=== PATIENT | female | born 1990 | race Caucasian/White ===

== ENCOUNTER 2016-04-05 17:42 | Emergency (ER) | payer OTHER ==
[2016-04-05 17:58] VITALS: BP 125/70
[2016-04-05] MEDS ORDERED: Oseltamivir CAP* 75 MG PO ONE (18:58)
--- NOTE | 2016-04-05 19:02 | UC ---
FLU HPI - HPI Summary HPI Summary: MOTHER DIAGNOSED WITH POSITIVE INFLUENZA SWAB. YESTERDAY DEVELOPED CONGESTION COUGH LOW GRADE FEVER MUSCLE ACHES SORE THROAT AND FATIGUE. NO RASH. NO ABDOMINAL PAIN. COUGH AND CONGESTION AND ACHINESS ARE WORST SYMPTOMS. - History of Current Complaint Chief Complaint: UCRespiratory Stated Complaint: COUGH, AND CHEST CONGESTION Time Seen by Provider: 04/05/16 18:00 Hx Obtained From: Patient Hx Last Menstrual Period: 03/29/15 Onset/Duration: Sudden Onset, Lasting Hours, Still Present Severity Currently: Moderate Severity Initially: Moderate Associated Signs & Symptoms: Positive: Fever, Myalgia, Cough, Sore Throat, Nasal Congestion. Negative: Headache, Vomiting, Diarrhea Related Hx: Possible Flu/Infectious Exposure - Risk Factors Influenza Risk Factors: Chronic Medical or Immunosuppresive Condition - Allergy/Home Medications Allergies/Adverse Reactions: Allergies Allergy/AdvReac Type Severity Reaction Status Date / Time Hydrocodone [From Vicodin] Allergy Severe Itching Verified 04/05/16 17:59 Ibuprofen Allergy Severe Blisters Verified 04/05/16 17:59 Penicillins Allergy Severe Difficulty Verified 04/05/16 17:59 Breathing Home Medications: Home Medications traZODone TAB* [Desyrel TAB*] 50 mg PO BEDTIME 04/05/16 [History Confirmed 04/05] PMH/Surg Hx/FS Hx/Imm Hx Previously Healthy: Yes Endocrine History Of: Denies: Diabetes, Thyroid Disease, Hyperthyroidism, Hypothyroidism, Dyslipidemia Cardiovascular History Of: Denies: Cardiac Disorders, Hypertension, Pacemaker/ICD, Myocardial Infarction , Congestive Heart Failure, Atrial Fibrillation, Deep Vein Thrombosis, Bleeding Disorders Respiratory History Of: Reports: Asthma - Only used inhalers when younger and when sick. Denies: COPD, Bronchitis, Pneumonia, Pulmonary Embolism GI/ History Of: Reports: Gastroesophageal Reflux, Kidney Stones, Renal Disease - Her last kidney/bladder infection was about a year ago. Denies: Ulcer, Gastrointestinal Bleed, Gall Bladder Disease, Diverticulitis, Urosepsis Neurological History Of: Reports: Migraine Denies: TIA, CVA, Dementia, Seizures Psychological History Of: Reports: Bipolar Disorder - She takes depakote for this. Denies: Anxiety, Depression, Schizophrenia, Post Traumatic Stress Disorder Cancer History Of: Denies: Lung Cancer, Colorectal Cancer, Breast Cancer, Prostate Cancer, Cervical Cancer Other History Of: Negative For: HIV, Hepatitis B, Hepatitis C, Anticoagulant Therapy - Surgical History Surgical History: Yes Surgery Procedure, Year, and Place: Tonsillectomy adenoidectomy. C section X4, Tubal Ligation - Family History Known Family History: Positive: Cardiac Disease, Hypertension, Diabetes, Other - migraines mom had brain CA - Social History Occupation: Student Lives: With Family Alcohol Use: None Substance Use Type: None Substance Use Comment - Amount & Last Used: prenatals state illicit drug use history Smoking Status (MU): Current Every Day Smoker Type: Cigarettes Amount Used/How Often: 1/4 ppd Length of Time of Smoking/Using Tobacco: 17 years Have You Smoked in the Last Year: Yes Household Exposure Type: Cigarettes Cessation Counseling: Counseled 3+Min - 10 Min - Immunization History Most Recent Influenza Vaccination: declined for this year Most Recent Tetanus Shot: UTD Most Recent Pneumonia Vaccination: none Review of Systems Constitutional: Fever, Chills, Fatigue Skin: Negative Eyes: Negative ENT: Sore Throat, Nasal Discharge Respiratory: Cough Cardiovascular: Negative Gastrointestinal: Negative Genitourinary: Negative Motor: Negative Neurovascular: Negative Musculoskeletal: Negative Neurological: Negative Psychological: Negative All Other Systems Reviewed And Are Negative: Yes Physical Exam Triage Information Reviewed: Yes Appearance: Well-Appearing, No Pain Distress, Well-Nourished Vital Signs: Initial Vital Signs Temp 99.9 F 04/05/16 17:53 Pulse 112 04/05/16 17:53 Resp 20 04/05/16 17:53 BP 125/70 04/05/16 17:53 Pulse Ox 97 04/05/16 17:53 Vital Signs Reviewed: Yes Eye Exam: Normal Eyes: Positive: Conjunctiva Clear ENT: Positive: Pharynx normal, Nasal congestion, TMs normal Dental Exam: Normal Neck exam: Normal Neck: Positive: Supple, Nontender, No Lymphadenopathy Respiratory Exam: Normal Respiratory: Positive: Chest non-tender, Lungs clear, Normal breath sounds Cardiovascular Exam: Normal Cardiovascular: Positive: RRR, No Murmur Abdominal Exam: Normal Abdomen Description: Positive: Nontender, No Organomegaly Musculoskeletal Exam: Normal Neurological Exam: Normal Psychological Exam: Normal Skin Exam: Normal Flu Course/Dx - Differential Dx/Diagnosis Differential Diagnosis/HQI/PQRI: Influenza, Upper Respiratory Infection Provider Diagnoses: INFLUENZA Discharge - Discharge Plan Condition: Stable Disposition: HOME Prescriptions: Oseltamivir CAP* [Tamiflu CAP*] 75 mg PO BID #10 cap Patient Education Materials: Influenza (ED) Forms: *School Release Referrals: Rufina Dunlap MD [Primary Care Provider] -
== END 2016-04-05 19:15 | disposition home or self-care (01) ==
LOC: UCEAST 17:42
DX: J11.1 Influenza due to unidentified influenza virus with other respiratory manifestations (principal); F31.9 Bipolar disorder, unspecified; F17.210 Nicotine dependence, cigarettes, uncomplicated; Z87.898 Personal history of other specified conditions; Z88.0 Allergy status to penicillin; Z88.5 Allergy status to narcotic agent; Z88.6 Allergy status to analgesic agent
CPT/HCPCS: 87502; 99212; A9270-GY; G0463

== ENCOUNTER 2016-04-13 11:18 | Emergency (ER) | payer OTHER ==
[2016-04-13 11:34] VITALS: BP 99/65
[2016-04-13] MEDS ORDERED: Ondansetron ODT TAB* 4 MG PO ONE (12:38)
[2016-04-13] MEDS ORDERED: Loperamide CAP* 2 MG PO ONE (12:39)
--- NOTE | 2016-04-13 14:02 | ED ---
Qi Mckinnye Michael, scribed for Salas Dumont MD on 04/13/16 at 1241 . GI/ HPI - HPI Summary HPI Summary: 26 y/o female comes to the ED presenting with n/v/d that started one day ago. The pt reports to not keeping any food or drinking down since last night except for a few ice chips she had in the ED. She also c/o weakness, chills, right ear pain, nasal congestion for 2 days, sore throat, productive cough with green sputum, and diffuse abd pain. She denies a significant PMHx and is a smoker. - History of Current Complaint Chief Complaint: EDGeneral Time Seen by Provider: 04/13/16 12:15 Stated Complaint: SORE THROAT/VOMITING Hx Obtained From: Patient, Medical Records Onset/Duration: Started Days Ago, Still Present Timing: Intermittent Severity: Moderate Current Severity: Moderate Pain Intensity: 10 Location of Pain: Diffuse Associated Signs and Symptoms: Positive: Weakness, Nausea, Vomiting, Diarrhea, Chills, Abdominal Pain, Cough, Other: - nasal congestion. sore throat. right ear pain. - Allergy/Home Medications Allergies/Adverse Reactions: Allergies Allergy/AdvReac Type Severity Reaction Status Date / Time Hydrocodone [From Vicodin] Allergy Severe Itching Verified 04/05/16 17:59 Ibuprofen Allergy Severe Blisters Verified 04/05/16 17:59 Penicillins Allergy Severe Difficulty Verified 04/05/16 17:59 Breathing PMH/Surg Hx/FS Hx/Imm Hx Endocrine/Hematology History: Denies: Hx Anticoagulant Therapy, Hx Diabetes, Hx Thyroid Disease Cardiovascular History: Denies: Hx Congestive Heart Failure, Hx Deep Vein Thrombosis, Hx Hypertension , Hx Myocardial Infarction, Hx Pacemaker/ICD, Hx Peripheral Vascular Disease Respiratory History: Reports: Hx Asthma - Only used inhalers when younger and when sick. Denies: Hx Chronic Obstructive Pulmonary Disease (COPD), Hx Lung Cancer, Hx Pneumonia, Hx Pulmonary Embolism GI History: Reports: Other GI Disorders - hx bladder infection Denies: Hx Gall Bladder Disease, Hx Gastrointestinal Bleed, Hx Ulcer, Hx Urosepsis History: Reports: Hx Kidney Infection, Hx Kidney Stones, Hx Renal Disease - Her last kidney/bladder infection was about a year ago., Other Problems/ Disorders - UNABLE TO VOID TODAY Musculoskeletal History: Denies: Hx Arthritis, Hx Rheumatoid Arthritis, Hx Osteoporosis Sensory History: Denies: Hx Cataracts, Hx Contacts or Glasses, Hx Glaucoma, Hx Hearing Aid Opthamlomology History: Denies: Hx Cataracts, Hx Contacts or Glasses, Hx Glaucoma Neurological History: Reports: Hx Migraine Denies: Hx Dementia, Hx Headaches, Hx Seizures, Hx Transient Ischemic Attacks (TIA) Psychiatric History: Reports: Hx Bipolar Disorder - She takes depakote for this. , Other Psychiatric Issues/Disorders - bipolar Denies: Hx Anxiety, Hx Depression, Hx Panic Disorder, Hx Schizophrenia - Surgical History Surgery Procedure, Year, and Place: Tonsillectomy adenoidectomy. C section X4, Tubal Ligation - Immunization History Date of Tetanus Vaccine: Unknown Date of Influenza Vaccine: None Infectious Disease History: Yes Infectious Disease History: Reports: Hx of Known/Suspected MRSA - ? hx of leg wound Denies: Hx Clostridium Difficile, Hx Hepatitis, Hx Human Immunodeficiency Virus (HIV), Hx Shingles, Hx Tuberculosis, Hx Known/Suspected VRE, Hx Known/ Suspected VRSA, History Other Infectious Disease, Traveled Outside the in Last 30 Days - Family History Known Family History: Positive: Cardiac Disease, Hypertension, Diabetes, Other - migraines mom had brain CA - Social History Occupation: Unemployed Lives: With Family Alcohol Use: None Hx Substance Use: No Substance Use Type: Reports: None Substance Use Comment - Amount & Last Used: prenatals state illicit drug use history Hx Tobacco Use: Yes Smoking Status (MU): Current Every Day Smoker Type: Cigarettes Amount Used/How Often: 1/4 ppd Length of Time of Smoking/Using Tobacco: 17 years Have You Smoked in the Last Year: Yes Review of Systems Positive: Chills Positive: Sore Throat, Ear Ache, Nasal Discharge Positive: Cough Positive: Abdominal Pain, Vomiting, Diarrhea, Nausea Positive: Weakness All Other Systems Reviewed And Are Negative: Yes Physical Exam - Summary Physical Exam Summary: The patient is well-nourished in no acute distress and in no acute pain. The skin is warm and flush. HEENT: The head is normocephalic and atraumatic. The pupils are equal and reactive. The conjunctivae are clear and without drainage. Positive rhinorrhea. Mouth reveals moist mucous membranes and the throat has erythema and with no exudate. The external ears are intact. The right TM has an effusion. Neck is supple with full range of motion and non-tender. There are no carotid bruits. There is no neck vein distension. Respiratory: Chest is non-tender. Lungs are clear to auscultation and breath sounds are symmetrical and equal. Cardiovascular: Hear is regular rate and rhythm. There is no murmur or rub auscultated. There is no peripheral edema and pulses are symmetrical and equal. Abdomen: The abdomen is soft and tender in the bilat mid quadrant. There are normal bowel sounds heard in all four quadrants and there is no organomegaly palpated. Musculoskeletal: There is no back pain noted. Extremities are non-tender with full range of motion. There is good capillary refill. There is no peripheral edema or calf tenderness elicited. Neurological: Patient is alert and oriented to person, place and time. The patient has symmetrical motor strength in all four extremities. Cranial nerves are grossly intact. Deep tendon reflexes are symmetrical and equal in all four extremities. Psychiatric: The patient has an appropriate affect and does not exhibit any anxiety or depression. Triage Information Reviewed: Yes Vital Signs On Initial Exam: Initial Vitals Temp Pulse Resp BP Pulse Ox 99.1 F 115 20 99/65 96 04/13/16 11:30 04/13/16 11:30 04/13/16 11:30 04/13/16 11:30 04/13/16 11:30 Vital Signs Reviewed: Yes Diagnostics - Vital Signs Vital Signs Temp Pulse Resp BP Pulse Ox 04/13/16 11:30 99.1 F 115 20 99/65 96 - Laboratory Lab Statement: Any lab studies that have been ordered have been reviewed, and results considered in the medical decision making process. GIGU Course/Dx - Diagnoses Differential Diagnoses - Female: Dehydration, Gastroenteritis (Viral), Other - sinusitis, otitis media, uri Provider Diagnoses: Sinusitis, Acute gastroenteritis Discharge - Discharge Plan Condition: Stable Disposition: HOME Prescriptions: Levofloxacin TAB* [Levaquin TAB*] 750 mg PO DAILY #5 tab Loperamide HCl [Imodium A-D] 2 mg PO QID #15 cap Ondansetron ODT TAB* [Zofran Odt TAB*] 4 mg PO Q8H PRN #10 tab.odt PRN Reason: nausea Patient Education Materials: Sinusitis (ED), Gastroenteritis (ED) Referrals: Rufina Dunlap MD [Primary Care Provider] - Additional Instructions: You will follow up with Dr. Dunlap within the next 2 days. The documentation as recorded by the scribeQi Michael accurately reflects the service I personally performed and the decisions made by me, Salas Dumont MD.
== END 2016-04-13 13:27 | disposition home or self-care (01) ==
LOC: ED 11:18
DX: K52.9 Noninfective gastroenteritis and colitis, unspecified (principal); R53.1 Weakness; R11.2 Nausea with vomiting, unspecified; R19.7 Diarrhea, unspecified; R68.83 Chills (without fever); R10.9 Unspecified abdominal pain; J02.9 Acute pharyngitis, unspecified; H92.09 Otalgia, unspecified ear; J32.9 Chronic sinusitis, unspecified
CPT/HCPCS: 87502; 99281

== ENCOUNTER 2016-05-01 10:24 | Emergency (ER) | payer OTHER ==
[2016-05-01 11:53] VITALS: BP 119/61
--- NOTE | 2016-05-11 07:37 | UC ---
UC General HPI - HPI Summary HPI Summary: cough, congestion, low energy, poor appetite, low back pain, muscle aches, fatigue for a week. Coughing up scant phlegm - History of Current Complaint Chief Complaint: UCGeneralIllness Stated Complaint: HEADACHE VOMITING COUGH LOWER BACK PAIN Time Seen by Provider: 05/01/16 14:22 Hx Obtained From: Patient Onset/Duration: Gradual Onset, Lasting Days - 10 Timing: Constant Onset Severity: Moderate Current Severity: Mild Pain Intensity: 0 Associated Signs & Symptoms: Positive: Back Pain, Cough, Diarrhea, Decreased Oral Intake, Fever, Headache, Nausea, Weakness. Negative: Vomiting, Wheezing - Allergy/Home Medications Allergies/Adverse Reactions: Allergies Allergy/AdvReac Type Severity Reaction Status Date / Time Hydrocodone [From Vicodin] Allergy Severe Itching Verified 04/05/16 17:59 Ibuprofen Allergy Severe Blisters Verified 04/05/16 17:59 Penicillins Allergy Severe Difficulty Verified 04/05/16 17:59 Breathing PMH/Surg Hx/FS Hx/Imm Hx Endocrine History Of: Denies: Diabetes, Thyroid Disease, Hyperthyroidism, Hypothyroidism, Dyslipidemia Cardiovascular History Of: Denies: Cardiac Disorders, Hypertension, Pacemaker/ICD, Myocardial Infarction , Congestive Heart Failure, Atrial Fibrillation, Deep Vein Thrombosis, Bleeding Disorders Respiratory History Of: Reports: Asthma - Only used inhalers when younger and when sick. Denies: COPD, Bronchitis, Pneumonia, Pulmonary Embolism GI/ History Of: Reports: Gastroesophageal Reflux, Kidney Stones, Renal Disease - Her last kidney/bladder infection was about a year ago. Denies: Ulcer, Gastrointestinal Bleed, Gall Bladder Disease, Diverticulitis, Urosepsis Neurological History Of: Reports: Migraine Denies: TIA, CVA, Dementia, Seizures Psychological History Of: Reports: Bipolar Disorder - She takes depakote for this. Denies: Anxiety, Depression, Schizophrenia, Post Traumatic Stress Disorder Cancer History Of: Denies: Lung Cancer, Colorectal Cancer, Breast Cancer, Prostate Cancer, Cervical Cancer Other History Of: Negative For: HIV, Hepatitis B, Hepatitis C, Anticoagulant Therapy - Surgical History Surgical History: Yes Surgery Procedure, Year, and Place: Tonsillectomy adenoidectomy. C section X4, Tubal Ligation - Family History Known Family History: Positive: Cardiac Disease, Hypertension, Diabetes, Other - migraines mom had brain CA - Social History Occupation: Employed Full-time Lives: With Family Alcohol Use: None Substance Use Type: None Substance Use Comment - Amount & Last Used: prenatals state illicit drug use history Smoking Status (MU): Heavy Every Day Tobacco Smoker Type: Cigarettes Amount Used/How Often: 5-7 CIG/DAY Length of Time of Smoking/Using Tobacco: 17 years Have You Smoked in the Last Year: Yes Household Exposure Type: Cigarettes - Immunization History Most Recent Influenza Vaccination: declined for this year Most Recent Tetanus Shot: UTD Most Recent Pneumonia Vaccination: none Review of Systems Constitutional: Fever, Chills, Fatigue Skin: Negative Eyes: Negative ENT: Nasal Discharge Respiratory: Cough Cardiovascular: Negative Gastrointestinal: Diarrhea Genitourinary: Negative Motor: Negative Neurovascular: Negative Musculoskeletal: Negative Neurological: Negative Psychological: Negative All Other Systems Reviewed And Are Negative: Yes Physical Exam Triage Information Reviewed: Yes Appearance: Well-Appearing, No Pain Distress, Well-Nourished Vital Signs: Initial Vital Signs Temp 98.2 F 05/01/16 11:49 Pulse 75 05/01/16 11:49 Resp 18 05/01/16 11:49 BP 119/61 05/01/16 11:49 Pulse Ox 96 05/01/16 11:49 Vital Signs Reviewed: Yes Eye Exam: Normal ENT: Positive: Hearing grossly normal, Pharynx normal, Nasal congestion, Nasal drainage, TMs normal, Muffled/hoarse voice - hoarse Neck exam: Normal Neck: Positive: Supple, Nontender Respiratory Exam: Normal Respiratory: Positive: Lungs clear, Normal breath sounds, No respiratory distress, No accessory muscle use Cardiovascular Exam: Normal Musculoskeletal Exam: Normal Neurological Exam: Normal Psychological Exam: Normal Skin Exam: Normal Course/Dx - Differential Dx - Multi-Symptom Provider Diagnoses: viral syndrome Discharge - Discharge Plan Condition: Stable Disposition: HOME Prescriptions: Guaifenesin-Codeine [Cheratussin AC] 1 - 2 teasp PO Q6HR PRN #120 ml MDD 30ml PRN Reason: Cough Patient Education Materials: Viral Syndrome (ED) Referrals: Rufina Dunlap MD [Primary Care Provider] - Additional Instructions: Call Dr. Dunlap for an appointment for further evaluation of your ongoing symptoms. Today your vital signs are normal. Your urine is normal. You are not . Your oxygen is normal. There is no sign of pneumonia. If you have been sick for a month, it could be one prolonged viral illness, or several back- to-back viral illnesses. Your primary care doctor can do further evaluation if she feels it is warranted.
== END 2016-05-01 15:11 | disposition home or self-care (01) ==
LOC: UCEAST 10:24
DX: R51 Headache (principal); R11.10 Vomiting, unspecified; F17.290 Nicotine dependence, other tobacco product, uncomplicated
CPT/HCPCS: 81002; 81025; 99212; G0463

== ENCOUNTER 2016-06-02 19:44 | Emergency (ER) | payer OTHER ==
[2016-06-02 19:59] VITALS: BP 131/84
--- NOTE | 2016-06-02 21:11 | UC ---
Earle Mckinney Claudia, scribed for Dre Fink MD on 06/02/16 at 2014 . Knee Pain HPI - HPI Summary HPI Summary: 26 year old female presents to the [facility] with right knee pain. Pt notes it was twisted when she fell down stairs this afternoon. Pt notes she is also having back pain from the fall. She notes the knee pain is a throbbing pain and states it is an 8/10. She denies any fever or chills. - History of Current Complaint Chief Complaint: UCLowerExtremity Stated Complaint: KNEE PAIN Time Seen by Provider: 06/02/16 20:03 Hx Obtained From: Patient Hx Last Menstrual Period: 05/28/16 Onset/Duration: Sudden Onset Character: Throbbing Aggravating Factor(s): Movement, Weight Bearing Able to Bear Weight: Yes - Allergies/Home Medications Allergies/Adverse Reactions: Allergies Allergy/AdvReac Type Severity Reaction Status Date / Time Hydrocodone [From Vicodin] Allergy Severe Itching Verified 04/05/16 17:59 Ibuprofen Allergy Severe Blisters Verified 04/05/16 17:59 Penicillins Allergy Severe Difficulty Verified 04/05/16 17:59 Breathing PMH/Surg Hx/FS Hx/Imm Hx Previously Healthy: Yes Endocrine History Of: Denies: Diabetes, Thyroid Disease, Hyperthyroidism, Hypothyroidism, Dyslipidemia Cardiovascular History Of: Denies: Cardiac Disorders, Hypertension, Pacemaker/ICD, Myocardial Infarction , Congestive Heart Failure, Atrial Fibrillation, Deep Vein Thrombosis, Bleeding Disorders Respiratory History Of: Reports: Asthma - Only used inhalers when younger and when sick. Denies: COPD, Bronchitis, Pneumonia, Pulmonary Embolism GI/ History Of: Reports: Gastroesophageal Reflux, Kidney Stones, Renal Disease - Her last kidney/bladder infection was about a year ago. Denies: Ulcer, Gastrointestinal Bleed, Gall Bladder Disease, Diverticulitis, Urosepsis Neurological History Of: Reports: Migraine Denies: TIA, CVA, Dementia, Seizures Psychological History Of: Reports: Bipolar Disorder - She takes depakote for this. Denies: Anxiety, Depression, Schizophrenia, Post Traumatic Stress Disorder Cancer History Of: Denies: Lung Cancer, Colorectal Cancer, Breast Cancer, Prostate Cancer, Cervical Cancer Other History Of: Negative For: HIV, Hepatitis B, Hepatitis C, Anticoagulant Therapy - Surgical History Surgical History: Yes Surgery Procedure, Year, and Place: Tonsillectomy adenoidectomy. C section X4, Tubal Ligation - Family History Known Family History: Positive: Cardiac Disease, Hypertension, Diabetes, Other - migraines mom had brain CA, depression, anxiety - Social History Occupation: Unemployed Lives: With Family Alcohol Use: None Substance Use Type: None Substance Use Comment - Amount & Last Used: prenatals state illicit drug use history Smoking Status (MU): Heavy Every Day Tobacco Smoker Type: Cigarettes Amount Used/How Often: 5-7 CIG/DAY Length of Time of Smoking/Using Tobacco: 17 years Have You Smoked in the Last Year: Yes Household Exposure Type: Cigarettes - Immunization History Most Recent Influenza Vaccination: declined for this year Most Recent Tetanus Shot: UTD Most Recent Pneumonia Vaccination: none Review of Systems Constitutional: Negative, Other - NO fever chills Skin: Negative Eyes: Negative ENT: Negative Respiratory: Negative Cardiovascular: Negative Gastrointestinal: Negative Genitourinary: Negative Motor: Negative Neurovascular: Negative Musculoskeletal: Other: - right knee pain Neurological: Negative Psychological: Negative All Other Systems Reviewed And Are Negative: Yes Physical Exam Triage Information Reviewed: Yes Vital Signs: Initial Vital Signs Temp 98.2 F 06/02/16 19:52 Pulse 71 06/02/16 19:52 Resp 18 06/02/16 19:52 BP 131/84 06/02/16 19:52 Pulse Ox 98 06/02/16 19:52 - Additional Comments Vital signs: Reviewed Gen.: Patient is an obese female in no acute distress. Patient is sitting comfortably on the stretcher. Head: Normacephalic and atraumatic Eyes: PERRLA, EOMI x2. Ears: Right ear canal and TM WNL and Left ear canal and TM WNL Nose and mouth: WNL Neck: Supple, Positive bilateral submandibular and anterior cervical lymphadenopathy. No JVD Lungs: CTA B/L CVS: S1 & S2 present. No murmurs appreciated. ABDOMEN: Soft NT w/ positive BS. EXT: FROM x 4. Para-spinal muscle tenderness in the lumbar spine, No crepitis, ecchymosis, deformity at the right knee. Negative drawer test. NEURO: A+O X 3. Knee Pain Course/Dx - Course Course Of Treatment: 26 year old female presents to the [facility] with right knee pain. Pt notes it was twisted when she fell down stairs this afternoon. Pt notes she is also having back pain from the fall. She notes the knee pain is a throbbing pain and states it is an 8/10. She denies any fever or chills. XR of the right knee displays no fracture, dislocation. I did not XR the lumbar spine she is able to ambulate with no pain. I recommend the pt to take ibuprofen for the pain anc ice for comfort and f/u with PCP and if the pain increases to f/u with ED or [facility]. - Differential Dx/Diagnosis Differential Diagnosis/HQI/PQRI: Fracture (Closed), Sprain, Strain, Tendonitis, Other - Knee pain, back pain Provider Diagnoses: knee sprain. lumbago Discharge - Discharge Plan Condition: Stable Disposition: HOME Patient Education Materials: Knee Sprain (ED), Low Back Strain (ED) Referrals: Rufina Dunlap MD [Primary Care Provider] - 2 Days The documentation as recorded by the Earle chowdary Claudia accurately reflects the service I personally performed and the decisions made by , Dre Fink MD.
--- NOTE | 2016-06-02 21:21 | RAD ---
Indication: Right knee pain. 4 views of the right knee demonstrates no fracture. Joint spaces all well-preserved. Pedicles appear intact. IMPRESSION: Unremarkable right knee.
== END 2016-06-02 20:58 | disposition home or self-care (01) ==
LOC: UCEAST 19:44
DX: S83.91XA Sprain of unspecified site of right knee, initial encounter (principal); W10.9XXA Fall (on) (from) unspecified stairs and steps, initial encounter; Y93.9 Activity, unspecified; Y92.9 Unspecified place or not applicable; M54.5 Low back pain; Z88.6 Allergy status to analgesic agent; Z88.5 Allergy status to narcotic agent; Z88.0 Allergy status to penicillin; F17.210 Nicotine dependence, cigarettes, uncomplicated
CPT/HCPCS: 99212; G0463

== ENCOUNTER 2016-07-29 20:44 | Emergency (ER) | payer OTHER ==
[2016-07-29] MEDS ORDERED: Ondansetron INJ* 2 MG/ML VIAL IV ONE (21:22)
[2016-07-29] MEDS ORDERED: NS 0.9% 1000 ML* 1,000 ML IV ONE (21:22)
[2016-07-29 22:26] LABS: Hematocrit 39 % (35-47); Hemoglobin 12.7 g/dl (12.0-16.0); Mean Corpuscular HGB Conc 33 g/dl (31-36); Mean Corpuscular Hemoglobin 28 pg (27-31); Mean Corpuscular Volume 86 fL (80-97); Mean Platelet Volume 11 um3 (7.4-10.4); Red Blood Count 4.49 10^6/ul (4.0-5.4); Red Cell Distribution Width 13 % (10.5-15); White Blood Count 11.5 10^3/ul (3.5-10.8)
[2016-07-29 22:33] LABS: Urine Bacteria Absent (Absent); Urine Bilirubin Negative (Negative); Urine Glucose Negative (Negative); Urine Nitrite Negative (Negative)
[2016-07-29] MEDS ORDERED: Ketorolac INJ* 30 MG/ML 1 ML VIAL IV PUSH ONE (22:40)
[2016-07-29 22:42] LABS: Albumin 3.8 g/dL (3.2-5.2); BUN/Creatinine Ratio 15.6 (8-20); Calcium 8.8 mg/dL (8.6-10.3); EGFR African American 142.1 (>60); EGFR Non-African American 110.5 (>60); Globulin 2.6 g/dL (2-4); Potassium 3.7 mmol/L (3.5-5.0); Total Bilirubin 0.2 mg/dL (0.2-1.0); Total Protein 6.4 g/dL (6.4-8.9)
[2016-07-30] MEDS ORDERED: Al Hydrox/Mg Hydrox/Simet LIQ* 30 ML UDC PO ONE (00:06)
[2016-07-30] MEDS ORDERED: Lidocaine 2% VISCOUS* 15 ML UDC PO ONE (00:06)
[2016-07-30] MEDS ORDERED: Ondansetron ODT TAB* 4 MG PO ONE (00:08)
[2016-07-30] MEDS ORDERED: Benzonatate CAP* 100 MG PO ONE (00:08)
--- NOTE | 2016-07-30 00:08 | ED ---
Abdominal Pain/Female - HPI Summary HPI Summary: 26F presents with cough, chest pain, abdominal pain, n/v/d for a day. She also admits to a sore throat and muscle aches. she states she has never experienced all of these symptoms together. She states that the chest pain is in the center of her chest and that it is worst when she coughs or takes a deep breath. She states that the abdominal pain and and vomiting started first. Her abdominal pain is generalized but greatest on her left side. She denies any dysuria, hematuria, vaginal discharge, or constipation. She states that she also feels short of breath especially when she coughs and she took her friend inhaler without any relief. She denies any history of COPD or asthma. She is a smoker. She denies any recent travel. - History of Current Complaint Chief Complaint: EDGeneral Stated Complaint: NAUSEA/VOMITING Time Seen by Provider: 07/29/16 21:22 Hx Last Menstrual Period: 1 MONTH AGO Pain Intensity: 8 Allergies/Adverse Reactions: Allergies Allergy/AdvReac Type Severity Reaction Status Date / Time Hydrocodone [From Vicodin] Allergy Severe "MAKES MY Verified 07/29/16 20:49 SKIN FEEL WARM" Ibuprofen Allergy Severe Blisters, Verified 07/29/16 20:49 THROAT SWELLING Penicillins Allergy Severe Difficulty Verified 07/29/16 20:49 Breathing PMH/Surg Hx/FS Hx/Imm Hx Endocrine/Hematology History: Denies: Hx Anticoagulant Therapy, Hx Diabetes, Hx Thyroid Disease Cardiovascular History: Denies: Hx Congestive Heart Failure, Hx Deep Vein Thrombosis, Hx Hypertension , Hx Myocardial Infarction, Hx Pacemaker/ICD, Hx Peripheral Vascular Disease Respiratory History: Reports: Hx Asthma Denies: Hx Chronic Obstructive Pulmonary Disease (COPD), Hx Lung Cancer, Hx Pneumonia, Hx Pulmonary Embolism GI History: Reports: Other GI Disorders - hx bladder infection Denies: Hx Gall Bladder Disease, Hx Gastrointestinal Bleed, Hx Ulcer, Hx Urosepsis History: Reports: Hx Kidney Infection, Hx Kidney Stones, Hx Renal Disease - Her last kidney/bladder infection was about a year ago., Other Problems/ Disorders - UNABLE TO VOID TODAY Musculoskeletal History: Denies: Hx Arthritis, Hx Rheumatoid Arthritis, Hx Osteoporosis Sensory History: Denies: Hx Cataracts, Hx Contacts or Glasses, Hx Glaucoma, Hx Hearing Aid Opthamlomology History: Denies: Hx Cataracts, Hx Contacts or Glasses, Hx Glaucoma Neurological History: Reports: Hx Migraine Denies: Hx Dementia, Hx Headaches, Hx Seizures, Hx Transient Ischemic Attacks (TIA) Psychiatric History: Reports: Hx Bipolar Disorder - She takes depakote for this. , Other Psychiatric Issues/Disorders - bipolar Denies: Hx Anxiety, Hx Depression, Hx Panic Disorder, Hx Schizophrenia - Surgical History Surgery Procedure, Year, and Place: Tonsillectomy adenoidectomy. C section X4, Tubal Ligation - Immunization History Date of Tetanus Vaccine: Unknown Date of Influenza Vaccine: None Infectious Disease History: Yes Infectious Disease History: Reports: Hx of Known/Suspected MRSA - ? hx of leg wound Denies: Hx Clostridium Difficile, Hx Hepatitis, Hx Human Immunodeficiency Virus (HIV), Hx Shingles, Hx Tuberculosis, Hx Known/Suspected VRE, Hx Known/ Suspected VRSA, History Other Infectious Disease, Traveled Outside the in Last 30 Days - Family History Known Family History: Positive: Cardiac Disease, Hypertension, Diabetes, Other - migraines mom had brain CA, depression, anxiety - Social History Alcohol Use: None Hx Substance Use: No Substance Use Type: Reports: None Substance Use Comment - Amount & Last Used: prenatals state illicit drug use history Hx Tobacco Use: Yes Smoking Status (MU): Current Every Day Smoker Type: Cigarettes Amount Used/How Often: 5-7 CIG/DAY Length of Time of Smoking/Using Tobacco: 17 years Have You Smoked in the Last Year: Yes Review of Systems Negative: Fever Positive: Chest Pain Positive: Shortness Of Breath, Cough Positive: Abdominal Pain, Vomiting, Diarrhea, Nausea Negative: dysuria, frequency All Other Systems Reviewed And Are Negative: Yes Physical Exam Triage Information Reviewed: Yes Vital Signs On Initial Exam: Initial Vitals Temp Pulse Resp BP Pulse Ox 99.6 F 102 20 129/72 96 07/29/16 20:47 07/29/16 20:47 07/29/16 20:47 07/29/16 20:47 07/29/16 20:47 Vital Signs Reviewed: Yes Appearance: Positive: Well-Appearing Skin: Positive: Warm, Dry Head/Face: Positive: Normal Head/Face Inspection Eyes: Positive: Normal, Conjunctiva Clear ENT: Positive: Normal ENT inspection, Pharynx normal, TMs normal Respiratory/Lung Sounds: Positive: Clear to Auscultation, Breath Sounds Present , Other - nontender chest Cardiovascular: Positive: Normal, RRR Abdomen Description: Positive: Soft, Other: - diffusely tender Bowel Sounds: Positive: Present - [place] Coma Scale Coma Scale Total: 15 Diagnostics - Vital Signs Vital Signs Temp Pulse Resp BP Pulse Ox 07/29/16 20:50 97 95 07/29/16 20:49 129/72 07/29/16 20:47 99.6 F 102 20 129/72 96 - Laboratory Lab Results: Lab Results 07/29/16 07/29/16 07/29/16 Range/Units 21:21 22:15 22:15 WBC 11.5 H (3.5-10.8) 10^3/ul RBC 4.49 (4.0-5.4) 10^6/ul Hgb 12.7 (12.0-16.0) g/dl Hct 39 (35-47) % MCV 86 (80-97) fL MCH 28 (27-31) pg MCHC 33 (31-36) g/dl RDW 13 (10.5-15) % Plt Count 181 (150-450) 10^3/ul MPV 11 H (7.4-10.4) um3 Neut % (Auto) 51.3 (38-83) % Lymph % (Auto) 38.0 (25-47) % [place] % (Auto) 7.6 (1-9) % Eos % (Auto) 2.8 (0-6) % Baso % (Auto) 0.3 (0-2) % Absolute Neuts (auto) 5.9 (1.5-7.7) 10^3/ul Absolute Lymphs (auto) 4.4 (1.0-4.8) 10^3/ul Absolute Monos (auto) 0.9 H (0-0.8) 10^3/ul Absolute Eos (auto) 0.3 (0-0.6) 10^3/ul Absolute Basos (auto) 0 (0-0.2) 10^3/ul Absolute Nucleated RBC 0.02 10^3/ul Nucleated RBC % 0.1 D-Dimer, Quantitative (Less Than 230) ng/mL Sodium 137 (133-145) mmol/L Potassium 3.7 (3.5-5.0) mmol/L Chloride 106 (101-111) mmol/L Carbon Dioxide 25 (22-32) mmol/L Anion Gap 6 (2-11) mmol/L BUN 10 (6-24) mg/dL Creatinine 0.64 (0.51-0.95) mg/dL Est GFR ( Amer) 142.1 (>60) Est GFR (Non-Af Amer) 110.5 (>60) BUN/Creatinine Ratio 15.6 (8-20) Glucose 100 (70-100) mg/dL Calcium 8.8 (8.6-10.3) mg/dL Total Bilirubin 0.20 (0.2-1.0) mg/dL AST 11 L (13-39) U/L ALT 8 (7-52) U/L Alkaline Phosphatase 80 (34-104) U/L Troponin I 0.00 (<0.04) ng/mL C-React Prot High Sens 6.48 mg/L Total Protein 6.4 (6.4-8.9) g/dL Albumin 3.8 (3.2-5.2) g/dL Globulin 2.6 (2-4) g/dL Albumin/Globulin Ratio 1.5 (1-3) Lipase 17 (11.0-82.0) U/L Urine Color Urine Appearance Urine pH (5-9) Ur Specific [place] (1.010-1.030) Urine Protein (Negative) Urine Ketones (Negative) Urine Blood (Negative) Urine Nitrate (Negative) Urine Bilirubin (Negative) Urine Urobilinogen (Negative) Ur Leukocyte Esterase (Negative) Urine WBC (Auto) (Absent) Urine RBC (Auto) (Absent) Ur Squamous Epith Cells (Absent) Urine Bacteria (Absent) Urine Glucose (Negative) Influenza A (Rapid) Negative (Negative) Influenza B (Rapid) Negative (Negative) 07/29/16 07/29/16 Range/Units 22:15 22:15 WBC (3.5-10.8) 10^3/ul RBC (4.0-5.4) 10^6/ul Hgb (12.0-16.0) g/dl Hct (35-47) % MCV (80-97) fL MCH (27-31) pg MCHC (31-36) g/dl RDW (10.5-15) % Plt Count (150-450) 10^3/ul MPV (7.4-10.4) um3 Neut % (Auto) (38-83) % Lymph % (Auto) (25-47) % [place] % (Auto) (1-9) % Eos % (Auto) (0-6) % Baso % (Auto) (0-2) % Absolute Neuts (auto) (1.5-7.7) 10^3/ul Absolute Lymphs (auto) (1.0-4.8) 10^3/ul Absolute Monos (auto) (0-0.8) 10^3/ul Absolute Eos (auto) (0-0.6) 10^3/ul Absolute Basos (auto) (0-0.2) 10^3/ul Absolute Nucleated RBC 10^3/ul Nucleated RBC % D-Dimer, Quantitative < 200 (Less Than 230) ng/mL Sodium (133-145) mmol/L Potassium (3.5-5.0) mmol/L Chloride (101-111) mmol/L Carbon Dioxide (22-32) mmol/L Anion Gap (2-11) mmol/L BUN (6-24) mg/dL Creatinine (0.51-0.95) mg/dL Est GFR ( Amer) (>60) Est GFR (Non-Af Amer) (>60) BUN/Creatinine Ratio (8-20) Glucose (70-100) mg/dL Calcium (8.6-10.3) mg/dL Total Bilirubin (0.2-1.0) mg/dL AST (13-39) U/L ALT (7-52) U/L Alkaline Phosphatase (34-104) U/L Troponin I (<0.04) ng/mL C-React Prot High Sens mg/L Total Protein (6.4-8.9) g/dL Albumin (3.2-5.2) g/dL Globulin (2-4) g/dL Albumin/Globulin Ratio (1-3) Lipase (11.0-82.0) U/L Urine Color Yellow Urine Appearance Cloudy Urine pH 6.0 (5-9) Ur Specific [place] 1.018 (1.010-1.030) Urine Protein Negative (Negative) Urine Ketones Negative (Negative) Urine Blood Negative (Negative) Urine Nitrate Negative (Negative) Urine Bilirubin Negative (Negative) Urine Urobilinogen Negative (Negative) Ur Leukocyte Esterase 1+ H (Negative) Urine WBC (Auto) 1+(6-10/hpf) H (Absent) Urine RBC (Auto) Absent (Absent) Ur Squamous Epith Cells Present H (Absent) Urine Bacteria Absent (Absent) Urine Glucose Negative (Negative) Influenza A (Rapid) (Negative) Influenza B (Rapid) (Negative) Result Diagrams: 07/29/16 22:15 07/29/16 22:15 Lab Statement: Any lab studies that have been ordered have been reviewed, and results considered in the medical decision making process. - Radiology chest Xray Interpretation: No Acute Changes Radiology Interpretation Completed By: ED Physician - EKG No standard instances Cardiac Rate: NL EKG Rhythm: Sinus Rhythm ST Segment: Normal Abdominal Pain Fem Course/Dx - Course Course Of Treatment: 26F presents with multiple compliants starting over the past day. She admits to sore throat, cough, SOB, chest pain, abdominal pain, n/v /d. She denies any fever. She denies any one else being sick. on exam she has diffuse tendnerness of her abdomen and lungs CTA. EKG normal. chest xray normal. labs wbc 11, d-dimer less 200, troponin zero,flu negative, discussed likely upper respiratory infection and will treat symptomaticly, patient understands and agrees with plan - Diagnoses Differential Diagnosis: Positive: Diverticulitis, Pneumonia, Urinary Tract Infection, Other - gastroenteritis Provider Diagnoses: Upper respiratory infection, Nausea vomiting and diarrhea Discharge - Discharge Plan Condition: Good Disposition: HOME Prescriptions: Benzonatate CAP* [Tessalon 100 MG CAP*] 100 mg PO TID #15 cap Ondansetron ODT TAB* [Zofran 4 MG Odt TAB*] 4 mg PO Q6H PRN #20 tab.odt PRN Reason: Nausea Patient Education Materials: Gastroenteritis (ED) Forms: *School Release, *Work Release Referrals: Rufina Dunlap MD [Primary Care Provider] - Additional Instructions: Can take Zofran every 6 hours as needed for nausea Take tessalon for cough three times a day Drink small amounts of fluid as tolerated When able to eat follow BRAT diet: Bananas, rice, applesauce, toast Symptoms likely due to viral gastroenteritis Take Tylenol for pain as needed every 6 hours Follow up with primary within 5 days Return to ED if develop fever that does not respond to Tylenol or ibuprofen, severe abdominal pain, or any new or worsening symptoms
[2016-07-30 00:40] VITALS: BP 141/82
--- NOTE | 2016-07-30 08:05 | RAD ---
INDICATION: . Sternal chest pain. Cough. Tobacco use. COMPARISON: August 25, 2014 TECHNIQUE: Dual energy PA and routine lateral views of the chest were obtained. REPORT: Clear lungs and pleural spaces. Negative for pneumothorax. The heart, pulmonary vasculature, and mediastinal contours are unremarkable. Unremarkable osseous structures and soft tissue contours. IMPRESSION: No evidence for acute intrathoracic disease.
== END 2016-07-30 00:40 | disposition home or self-care (01) ==
LOC: ED 20:44
DX: J06.9 Acute upper respiratory infection, unspecified (principal); R11.2 Nausea with vomiting, unspecified; R05 Cough; R07.9 Chest pain, unspecified; R10.9 Unspecified abdominal pain; R19.7 Diarrhea, unspecified; Z87.891 Personal history of nicotine dependence
CPT/HCPCS: 36415; 71020; 80053; 81003; 81015; 83690; 84484; 85025; 85379; 86141; 87086; 87502; 93005; 96374; 96375; 99284; A9270-GY; J1885; J2405

== ENCOUNTER 2016-07-31 19:27 | Emergency (ER) | payer OTHER ==
[2016-07-31] MEDS ORDERED: NS 0.9% 1000 ML* 1,000 ML IV ONE (20:37)
[2016-07-31] MEDS ORDERED: Ondansetron INJ* 2 MG/ML VIAL IV ONE (20:37)
[2016-07-31] MEDS ORDERED: traMADol TAB* 50 MG PO ONE ×2 (20:37→21:47)
[2016-07-31 20:52] LABS: Hematocrit 38 % (35-47); Hemoglobin 12.8 g/dl (12.0-16.0); Mean Corpuscular HGB Conc 34 g/dl (31-36); Mean Corpuscular Hemoglobin 29 pg (27-31); Mean Corpuscular Volume 86 fL (80-97); Mean Platelet Volume 11 um3 (7.4-10.4); Red Blood Count 4.43 10^6/ul (4.0-5.4); Red Cell Distribution Width 13 % (10.5-15); White Blood Count 12.7 10^3/ul (3.5-10.8)
[2016-07-31 20:53] LABS: Add Diff/Slide Review? Slide Review Added; Comments Flag Yes
[2016-07-31 21:11] LABS: Albumin 3.8 g/dL (3.2-5.2); BUN/Creatinine Ratio 21.8 (8-20); Calcium 8.7 mg/dL (8.6-10.3); EGFR African American 169.3 (>60); EGFR Non-African American 131.6 (>60); Globulin 2.7 g/dL (2-4); Potassium 3.8 mmol/L (3.5-5.0); Total Bilirubin 0.2 mg/dL (0.2-1.0); Total Protein 6.5 g/dL (6.4-8.9)
--- NOTE | 2016-07-31 21:15 | RAD ---
Indication: Chest pain. Single frontal view of the chest performed at 2050 hours was reviewed. Comparison is made with previous exam dated July 29, 2016. No mediastinal shift is noted. Heart is of normal size and configuration. Lung marsh appear clear. IMPRESSION: NO ACTIVE CARDIOPULMONARY DISEASE IS NOTED.
[2016-07-31] MEDS ORDERED: Ondansetron TAB* 4 MG PO ONE (21:47)
--- NOTE | 2016-07-31 21:57 | ED ---
Joshua Mckinney Rebecca, scribed for Yudith Roland MD on 07/31/16 at 2020 . HPI Chest Pain - HPI Summary HPI Summary: Pt is a 26 y/o F with a CC of CP. Pain began suddenly 4 days ago and has been constant and worsening since onset. Pain is discrete to the left substernal and left anterior region without radiation and is characterized as shooting and pressure, reporting the sensation as "pressure sitting on my chest, makes it feel like my heart skips a beat and sends up pain every couple minutes." Pain is currently severe, ranked 9/10. Sx aggravated by coughing and sneezing, alleviated by nothing. Additionally c/o productive cough (green phlegm), V/D and throat pain secondary to vomiting. Pt is not on oral contraceptives. SHx current smoker. Denies any recent travel. FHx minor IA <55 y/o (mother at 46 y/o ). Pt was evaluated by [facility] [place] [facility] 4 days ago (Thursday) for similar symptoms with Dx of bronchitis and gastroenteritis, per pt. - History of Current Complaint Chief Complaint: EDChestPainROMI Time Seen by Provider: 07/31/16 20:03 Hx Obtained From: Patient Onset/Duration: Started Days Ago - 4 days ago, Still Present Timing: Constant Initial Severity: Moderate Current Severity: Severe Pain Intensity: 9 Pain Scale Used: 0-10 Numeric Chest Pain Location: Lower Sternal, Left Anterior Chest Pain Radiates: No Character: Pressure/Squeezing, Other: - Shooting Aggravating Factor(s): Other: - Coughing, sneezing Alleviating Factor(s): Nothing Associated Signs and Symptoms: Positive: Productive Cough - green phlegm, Vomiting, Other: - Throat pain secondary to vomiting; diarrhea Related History: Similar Episode/Dx as: - 4 days ago - Allergy/Home Medications Allergies/Adverse Reactions: Allergies Allergy/AdvReac Type Severity Reaction Status Date / Time Hydrocodone [From Vicodin] Allergy Severe "MAKES MY Verified 07/31/16 20:06 SKIN FEEL WARM" Ibuprofen Allergy Severe Blisters, Verified 07/31/16 20:06 THROAT SWELLING Penicillins Allergy Severe Difficulty Verified 07/31/16 20:06 Breathing PMH/Surg Hx/FS Hx/Imm Hx Endocrine/Hematology History: Denies: Hx Anticoagulant Therapy, Hx Diabetes, Hx Thyroid Disease Cardiovascular History: Denies: Hx Congestive Heart Failure, Hx Deep Vein Thrombosis, Hx Hypertension , Hx Myocardial Infarction, Hx Pacemaker/ICD, Hx Peripheral Vascular Disease Respiratory History: Reports: Hx Asthma Denies: Hx Chronic Obstructive Pulmonary Disease (COPD), Hx Lung Cancer, Hx Pneumonia, Hx Pulmonary Embolism GI History: Reports: Other GI Disorders - hx bladder infection Denies: Hx Gall Bladder Disease, Hx Gastrointestinal Bleed, Hx Ulcer, Hx Urosepsis History: Reports: Hx Kidney Infection, Hx Kidney Stones, Hx Renal Disease - Her last kidney/bladder infection was about a year ago., Other Problems/ Disorders - UNABLE TO VOID TODAY Musculoskeletal History: Denies: Hx Arthritis, Hx Rheumatoid Arthritis, Hx Osteoporosis Sensory History: Denies: Hx Cataracts, Hx Contacts or Glasses, Hx Glaucoma, Hx Hearing Aid Opthamlomology History: Denies: Hx Cataracts, Hx Contacts or Glasses, Hx Glaucoma Neurological History: Reports: Hx Migraine Denies: Hx Dementia, Hx Headaches, Hx Seizures, Hx Transient Ischemic Attacks (TIA) Psychiatric History: Reports: Hx Bipolar Disorder - She takes depakote for this. , Other Psychiatric Issues/Disorders - bipolar Denies: Hx Anxiety, Hx Depression, Hx Panic Disorder, Hx Schizophrenia - Surgical History Surgery Procedure, Year, and Place: Tonsillectomy adenoidectomy. C section X4, Tubal Ligation - Immunization History Date of Tetanus Vaccine: Unknown Date of Influenza Vaccine: None Infectious Disease History: No Infectious Disease History: Reports: Hx of Known/Suspected MRSA - ? hx of leg wound Denies: Hx Clostridium Difficile, Hx Hepatitis, Hx Human Immunodeficiency Virus (HIV), Hx Shingles, Hx Tuberculosis, Hx Known/Suspected VRE, Hx Known/ Suspected VRSA, History Other Infectious Disease, Traveled Outside the [place] in Last 30 Days - Family History Known Family History: Positive: Cardiac Disease - mother had minor IA at 46 y/o , Hypertension, Diabetes, Other - migraines mom had brain CA, depression, anxiet - Social History Alcohol Use: None Hx Substance Use: No Substance Use Type: Reports: None Substance Use Comment - Amount & Last Used: prenatals state illicit drug use history Hx Tobacco Use: Yes Smoking Status (MU): Current Every Day Smoker Type: Cigarettes Amount Used/How Often: 5-7 CIG/DAY Length of Time of Smoking/Using Tobacco: 17 years Have You Smoked in the Last Year: Yes Review of Systems Positive: Sore Throat - secondary to vomiting Positive: Chest Pain - left substernal and left anterior regions Positive: Cough - productive (green sputum) Positive: Vomiting, Diarrhea All Other Systems Reviewed And Are Negative: Yes Physical Exam - Summary Physical Exam Summary: General: Well appearing, no pain distress Skin: Warm, Skin Color Reflects Adequate Perfusion, Dry Eyes: EOMI, CODY ENT: Pharynx normal, TMs normal Neck: Supple, nontender Respiratory: CTA, breath sounds present, no rhonchi, no wheezes, no rales Cardiovascular: RRR, no murmur, no rub, no gallop Abdomen: Soft, nontender, Non-distended, no guarding, no rebound Bowel: Present Musculoskeletal: MAGUE, No edema Neuro: Sensory/motor intact, A&Ox3, CN intact 2-12 Psych: Affect/mood appropriate Triage Information Reviewed: Yes Vital Signs On Initial Exam: Initial Vitals Temp Pulse Resp BP Pulse Ox 98.7 F 78 17 116/55 99 07/31/16 20:00 07/31/16 20:00 07/31/16 20:00 07/31/16 20:00 07/31/16 20:00 Vital Signs Reviewed: Yes - [place] Coma Scale Coma Scale Total: 15 Diagnostics - Vital Signs Vital Signs Temp Pulse Resp BP Pulse Ox 07/31/16 20:00 98.7 F 78 17 116/55 99 - Laboratory Lab Results: Lab Results 07/31/16 07/31/16 07/31/16 Range/Units 20:40 20:40 20:40 WBC 12.7 H (3.5-10.8) 10^3/ul RBC 4.43 (4.0-5.4) 10^6/ul Hgb 12.8 (12.0-16.0) g/dl Hct 38 (35-47) % MCV 86 (80-97) fL MCH 29 (27-31) pg MCHC 34 (31-36) g/dl RDW 13 (10.5-15) % Plt Count 187 (150-450) 10^3/ul MPV 11 H (7.4-10.4) um3 Neut % (Auto) 46.7 (38-83) % Lymph % (Auto) 42.9 (25-47) % [place] % (Auto) 6.7 (1-9) % Eos % (Auto) 3.1 (0-6) % Baso % (Auto) 0.6 (0-2) % Absolute Neuts (auto) 5.9 (1.5-7.7) 10^3/ul Absolute Lymphs (auto) 5.4 H (1.0-4.8) 10^3/ul Absolute Monos (auto) 0.9 H (0-0.8) 10^3/ul Absolute Eos (auto) 0.4 (0-0.6) 10^3/ul Absolute Basos (auto) 0.1 (0-0.2) 10^3/ul Absolute Nucleated RBC 0 10^3/ul Nucleated RBC % 0 Hem Pathologist Commnt Pending D-Dimer, Quantitative < 200 (Less Than 230) ng/mL Sodium 138 (133-145) mmol/L Potassium 3.8 (3.5-5.0) mmol/L Chloride 107 (101-111) mmol/L Carbon Dioxide 24 (22-32) mmol/L Anion Gap 7 (2-11) mmol/L BUN 12 (6-24) mg/dL Creatinine 0.55 (0.51-0.95) mg/dL Est GFR ( Amer) 169.3 (>60) Est GFR (Non-Af Amer) 131.6 (>60) BUN/Creatinine Ratio 21.8 H (8-20) Glucose 97 (70-100) mg/dL Calcium 8.7 (8.6-10.3) mg/dL Magnesium 2.0 (1.9-2.7) mg/dL Total Bilirubin 0.20 (0.2-1.0) mg/dL AST 9 L (13-39) U/L ALT 9 (7-52) U/L Alkaline Phosphatase 77 (34-104) U/L Troponin I 0.00 (<0.04) ng/mL Total Protein 6.5 (6.4-8.9) g/dL Albumin 3.8 (3.2-5.2) g/dL Globulin 2.7 (2-4) g/dL Albumin/Globulin Ratio 1.4 (1-3) Result Diagrams: 07/31/16 20:40 07/31/16 20:40 Lab Statement: Any lab studies that have been ordered have been reviewed, and results considered in the medical decision making process. - Radiology CXR Xray Interpretation: No Acute Changes Radiology Interpretation Completed By: Radiologist - EKG 1954 Cardiac Rate: NL - 77 bpm EKG Rhythm: Sinus Rhythm EKG Interpretation: No Q waves, no ST elevations Re-Evaluation - Re-Evaluation First Eval Re-Evaluation Time: 21:44 Change: Improved Comment: Pt is feeling significantly improved, medications given are working. Chest Pain Course/Dx - Course Course Of Treatment: 26 yo female with few days of cough and pleuritic cp, ekg and trop, and ddimer neg, cxr neg pt encouraged to wait to take abx but has no pmd at this time so called in to a pharmacy (will start if smxs not better by 6 or 7 days out), zofran for emesis and tramadol were effective for discomfort - Diagnoses Provider Diagnoses: Bronchitis Discharge - Discharge Plan Condition: Stable Disposition: HOME Prescriptions: Azithromycin TAB* [Zithromax TAB (Z-SAM) 250 mg #6 tabs] 2 tab PO .TODAY, THEN 1 DAILY #1 sam Ondansetron ODT TAB* [Zofran 4 MG Odt TAB*] 4 mg PO Q6H PRN #14 tab.odt PRN Reason: Nausea traMADol TAB* [Ultram*] 50 mg PO Q6HR PRN #14 tab MDD 4 PRN Reason: Pain Patient Education Materials: Acute Bronchitis (ED) Referrals: Rufina Dunlap MD [Primary Care Provider] - 2 Days Additional Instructions: Return to ED for any new or worsening symptoms. The documentation as recorded by the Joshua chowdary Rebecca accurately reflects the service I personally performed and the decisions made by me, Yudith Roland MD.
[2016-07-31 22:53] VITALS: BP 97/41
== END 2016-07-31 22:51 | disposition home or self-care (01) ==
LOC: ED 19:27
DX: R05 Cough (principal); R11.10 Vomiting, unspecified; R19.7 Diarrhea, unspecified; J40 Bronchitis, not specified as acute or chronic
CPT/HCPCS: 36415; 71010; 80053; 83735; 84484; 85025; 85060; 85379; 93005; 96374; 99283; A9270-GY; J2405

== ENCOUNTER 2016-08-21 20:33 | Emergency (ER) | payer OTHER ==
[2016-08-21] MEDS ORDERED: HYDROcodone/ACETAMIN 5-325 MG* 1 TAB PO ONE (23:53)
[2016-08-21] MEDS ORDERED: DOXYcycline CAP(*) 100 MG PO ONE (23:53)
[2016-08-22] MEDS ORDERED: Acetaminophen TAB* 325 MG PO ONE (00:04)
[2016-08-22] MEDS ORDERED: Butalb/Acetamin/Caff TAB* 1 TAB PO ONE (00:51)
--- NOTE | 2016-08-22 01:02 | ED ---
Wilma Mckinney Alok, scribed for Yudith Roland MD on 08/21/16 at 2240 . Complex/Multi-Sys Presentation - HPI Summary HPI Summary: 26F presents to the ED with a previous dx of bronchitis 3 weeks ago which has not improved. Pt was given a Zpak with no improvement. Pt c/o chest tightness, sore throat, right ear plugged, and sinus congestion. Pt also notes a right sided KEARNS with vision blurriness described as an aura of the right eye. Pt also notes diarrhea and loss of appetite. Pt denies vomiting. PMHx includes asthma and h/o migraine. - History Of Current Complaint Chief Complaint: EDUpperRespComplaint Time Seen by Provider: 08/21/16 22:18 Hx Obtained From: Patient Onset/Duration: Lasting Weeks, Still Present Timing: Constant Severity Currently: Moderate Severity Initially: Moderate Location: Pain At: - right sided KEARNS Aggravating Factor(s): nothing Alleviating Factor(s): nothing Associated Signs And Symptoms: Positive: Headache, Chest Pain - tightness, Diarrhea, Other - sinus congestion, right eye aura, loss of appetite, sore throat. Negative: Vomiting, Fever - Allergies/Home Medications Allergies/Adverse Reactions: Allergies Allergy/AdvReac Type Severity Reaction Status Date / Time Hydrocodone [From Vicodin] Allergy Severe "MAKES MY Verified 07/31/16 20:06 SKIN FEEL WARM" Ibuprofen Allergy Severe Blisters, Verified 07/31/16 20:06 THROAT SWELLING Penicillins Allergy Severe Difficulty Verified 07/31/16 20:06 Breathing PMH/Surg Hx/FS Hx/Imm Hx Endocrine/Hematology History: Denies: Hx Anticoagulant Therapy, Hx Diabetes, Hx Thyroid Disease Cardiovascular History: Denies: Hx Congestive Heart Failure, Hx Deep Vein Thrombosis, Hx Hypertension , Hx Myocardial Infarction, Hx Pacemaker/ICD, Hx Peripheral Vascular Disease Respiratory History: Reports: Hx Asthma Denies: Hx Chronic Obstructive Pulmonary Disease (COPD), Hx Lung Cancer, Hx Pneumonia, Hx Pulmonary Embolism GI History: Reports: Other GI Disorders - hx bladder infection Denies: Hx Gall Bladder Disease, Hx Gastrointestinal Bleed, Hx Ulcer, Hx Urosepsis History: Reports: Hx Kidney Infection, Hx Kidney Stones, Hx Renal Disease - Her last kidney/bladder infection was about a year ago., Other Problems/ Disorders - UNABLE TO VOID TODAY Musculoskeletal History: Denies: Hx Arthritis, Hx Rheumatoid Arthritis, Hx Osteoporosis Sensory History: Denies: Hx Cataracts, Hx Contacts or Glasses, Hx Glaucoma, Hx Hearing Aid Opthamlomology History: Denies: Hx Cataracts, Hx Contacts or Glasses, Hx Glaucoma Neurological History: Reports: Hx Migraine Denies: Hx Dementia, Hx Headaches, Hx Seizures, Hx Transient Ischemic Attacks (TIA) Psychiatric History: Reports: Hx Bipolar Disorder - She takes depakote for this. , Other Psychiatric Issues/Disorders - bipolar Denies: Hx Anxiety, Hx Depression, Hx Panic Disorder, Hx Schizophrenia - Surgical History Surgery Procedure, Year, and Place: Tonsillectomy adenoidectomy. C section X4, Tubal Ligation - Immunization History Date of Tetanus Vaccine: Unknown Date of Influenza Vaccine: None Infectious Disease History: Reports: Hx of Known/Suspected MRSA - ? hx of leg wound Denies: Hx Clostridium Difficile, Hx Hepatitis, Hx Human Immunodeficiency Virus (HIV), Hx Shingles, Hx Tuberculosis, Hx Known/Suspected VRE, Hx Known/ Suspected VRSA, History Other Infectious Disease, Traveled Outside the [place] in Last 30 Days - Family History Known Family History: Positive: Cardiac Disease - mother had minor MA at 46 y/o , Hypertension, Diabetes, Other - migraines mom had brain CA, depression, anxiet - Social History Occupation: Unemployed Lives: With Family Alcohol Use: None Hx Substance Use: No Substance Use Type: Reports: None Substance Use Comment - Amount & Last Used: prenatals state illicit drug use history Hx Tobacco Use: Yes Smoking Status (MU): Current Every Day Smoker Type: Cigarettes Amount Used/How Often: 5-7 CIG/DAY Length of Time of Smoking/Using Tobacco: 17 years Have You Smoked in the Last Year: Yes Review of Systems Negative: Fever Positive: Blurred Vision Positive: Sore Throat Positive: Chest Pain Positive: Diarrhea. Negative: Vomiting Positive: Headache All Other Systems Reviewed And Are Negative: Yes Physical Exam Triage Information Reviewed: Yes Vital Signs On Initial Exam: Initial Vitals Temp Pulse Resp BP Pulse Ox 97.1 F 91 16 122/51 99 08/21/16 20:35 08/21/16 20:35 08/21/16 20:35 08/21/16 20:35 08/21/16 20:35 Vital Signs Reviewed: Yes Appearance: Positive: Well-Appearing, No Pain Distress Skin: Positive: Warm, Skin Color Reflects Adequate Perfusion, Dry Eyes: Positive: EOMI, CODY ENT: Positive: Pharynx normal, TMs normal Neck: Positive: Supple, Nontender Respiratory/Lung Sounds: Positive: Clear to Auscultation, Breath Sounds Present. Negative: Rales, Rhonchi, Wheezes Cardiovascular: Positive: RRR, Other - no gallop. Negative: Murmur, Rub Abdomen Description: Positive: Nontender, Soft, Other: - no rebound. Negative: Distended, Guarding Bowel Sounds: Positive: Present Musculoskeletal: Positive: Strength/ROM Intact. Negative: Edema Left, Edema Right Neurological: Positive: Sensory/Motor Intact, Alert, Oriented to Person Place, Time, CN Intact II-III Psychiatric: Positive: Affect/Mood Appropriate Diagnostics - Vital Signs Vital Signs Temp Pulse Resp BP Pulse Ox 08/21/16 22:00 97.7 F 85 16 115/99 99 08/21/16 20:35 97.1 F 91 16 122/51 99 - Laboratory Lab Statement: Any lab studies that have been ordered have been reviewed, and results considered in the medical decision making process. - Radiology CXR Xray Interpretation: No Acute Changes Radiology Interpretation Completed By: ED Physician - Dr. Roland - EKG 2327 Cardiac Rate: NL - 75 bpm EKG Rhythm: Sinus Rhythm Complex Multi-Symp Course/Dx Course Of Treatment: 26 yo female with migraine headache and sinus pressure, with cough and chest tightness. cxr is negative she is receiving fioricet for her headache and doxy for her sinusitis - Diagnoses Provider Diagnoses: Sinusitis, Migraine Discharge - Discharge Plan Condition: Stable Disposition: HOME Prescriptions: Butalb/Acetamin/Caff TAB* [Fioricet TAB*] 1 tab PO Q6H PRN #20 tab MDD 4 PRN Reason: Headache DOXYcycline CAP(*) [DOXYcycline 100MG CAP(*)] 100 mg PO BID #20 cap Patient Education Materials: Sinusitis (ED), Migraine Headache (ED) Referrals: Rufina Dunlap MD [Primary Care Provider] - The documentation as recorded by the Wilma chowdary Alok accurately reflects the service I personally performed and the decisions made by wy, Yudith Roland MD.
[2016-08-22 01:07] VITALS: BP 104/58
--- NOTE | 2016-08-22 07:42 | RAD ---
INDICATION: Cough COMPARISON: Most recent comparison chest x-rays dated July 31, 2016 TECHNIQUE: PA and lateral views of the chest were obtained. FINDINGS: The heart and mediastinum are normal in size and contour. There is linear density at the right greater than left lung bases, new since the previous 2 chest x-rays. Otherwise the lungs are grossly clear without lobar consolidation. There is no evidence of large pleural effusion. Visualized bones are normal for the patient's age. There is no radiographic evidence of free air beneath the diaphragm IMPRESSION: INTERVAL APPEARANCE OF RIGHT GREATER THAN LEFT LUNG BASE LINEAR DENSITY COULD BE SEEN IN THE SETTING OF ATELECTASIS OR PNEUMONIA.
== END 2016-08-22 01:05 | disposition home or self-care (01) ==
LOC: ED 20:33
DX: J32.9 Chronic sinusitis, unspecified (principal); G43.909 Migraine, unspecified, not intractable, without status migrainosus; R19.7 Diarrhea, unspecified; J45.909 Unspecified asthma, uncomplicated; F31.9 Bipolar disorder, unspecified; Z87.442 Personal history of urinary calculi; Z88.5 Allergy status to narcotic agent; Z88.6 Allergy status to analgesic agent; Z88.0 Allergy status to penicillin; F17.210 Nicotine dependence, cigarettes, uncomplicated
CPT/HCPCS: 71020; 93005; 99283; A9270-GY

== ENCOUNTER → 2016-08-22 17:39 | Emergency (ER) | payer OTHER ==
[~2016-08-22 17:39] MED LIST: Acetaminophen TAB* 325 MG PO ONE; Ketorolac INJ* 30 MG/ML 1 ML VIAL IV PUSH ONE; LORazepam INJ* 2 MG/ML 1 ML VIAL IV PUSH ONE; NS 0.9% 1000 ML* 1,000 ML IV ONE; Ondansetron INJ* 2 MG/ML VIAL IV ONE; diPHENhydraMINE IV* 50 MG/ML 1 ml VIAL (BENADRYL) IV ONE
--- NOTE | 2016-08-22 19:11 | ED ---
Neurological HPI - HPI Summary HPI Summary: Pt here w/ Rt sided headache, visual change x 2 days. Was seen here last night and dx'd w/ migraine and sinusitis. Was given fiorecet w/ 20 mins of relief last night. Was also started on doxycycline. While she was here last night, states she developed Rt arm tingling - was advised she stay for admission and w/ u however she wanted to go home. Today, has loss of hearing in Rt ear and Rt arm weakness wich she noticed while trying to carry her coffee mug this morning around 10:00. She dropped her coffee cup and was not sure why. She realized her Rt arm and leg are weak and tingling. SHe is able to ambulate. Admits to h/o migraines - they usually start on the Rt side of face and around eye, however much more painful this time and has never had visual change nor weakness sx she' s having now. Has had vomiting. - History of Current Complaint Chief Complaint: EDHeadache Stated Complaint: MIGRAINE Time Seen by Provider: 08/22/16 18:48 Hx Obtained From: Patient Hx Last Menstrual Period: 1 MONTH AGO Pain Intensity: 8 - Allergy/Home Medications Allergies/Adverse Reactions: Allergies Allergy/AdvReac Type Severity Reaction Status Date / Time Hydrocodone [From Vicodin] Allergy Severe "MAKES MY Verified 07/31/16 20:06 SKIN FEEL WARM" Ibuprofen Allergy Severe Blisters, Verified 07/31/16 20:06 THROAT SWELLING Penicillins Allergy Severe Difficulty Verified 07/31/16 20:06 Breathing PMH/Surg Hx/FS Hx/Imm Hx Endocrine/Hematology History: Denies: Hx Anticoagulant Therapy, Hx Diabetes, Hx Thyroid Disease Cardiovascular History: Denies: Hx Congestive Heart Failure, Hx Deep Vein Thrombosis, Hx Hypertension , Hx Myocardial Infarction, Hx Pacemaker/ICD, Hx Peripheral Vascular Disease Respiratory History: Reports: Hx Asthma Denies: Hx Chronic Obstructive Pulmonary Disease (COPD), Hx Lung Cancer, Hx Pneumonia, Hx Pulmonary Embolism GI History: Reports: Other GI Disorders - hx bladder infection Denies: Hx Gall Bladder Disease, Hx Gastrointestinal Bleed, Hx Ulcer, Hx Urosepsis History: Reports: Hx Kidney Infection, Hx Kidney Stones, Hx Renal Disease - Her last kidney/bladder infection was about a year ago., Other Problems/ Disorders - UNABLE TO VOID TODAY Musculoskeletal History: Denies: Hx Arthritis, Hx Rheumatoid Arthritis, Hx Osteoporosis Sensory History: Denies: Hx Cataracts, Hx Contacts or Glasses, Hx Glaucoma, Hx Hearing Aid Opthamlomology History: Denies: Hx Cataracts, Hx Contacts or Glasses, Hx Glaucoma Neurological History: Reports: Hx Migraine Denies: Hx Dementia, Hx Headaches, Hx Seizures, Hx Transient Ischemic Attacks (TIA) Psychiatric History: Reports: Hx Bipolar Disorder - She takes depakote for this. , Other Psychiatric Issues/Disorders - bipolar Denies: Hx Anxiety, Hx Depression, Hx Panic Disorder, Hx Schizophrenia - Surgical History Surgery Procedure, Year, and Place: Tonsillectomy adenoidectomy. C section X4, Tubal Ligation - Immunization History Date of Tetanus Vaccine: Unknown Date of Influenza Vaccine: None Infectious Disease History: No Infectious Disease History: Reports: Hx of Known/Suspected MRSA - ? hx of leg wound Denies: Hx Clostridium Difficile, Hx Hepatitis, Hx Human Immunodeficiency Virus (HIV), Hx Shingles, Hx Tuberculosis, Hx Known/Suspected VRE, Hx Known/ Suspected VRSA, History Other Infectious Disease, Traveled Outside the [place] in Last 30 Days - Family History Known Family History: Positive: Cardiac Disease - mother had minor [place] at 46 y/o , Hypertension, Diabetes, Other - migraines mom had brain CA, depression, anxiet - Social History Alcohol Use: None Hx Substance Use: No Substance Use Type: Reports: None Substance Use Comment - Amount & Last Used: prenatals state illicit drug use history Hx Tobacco Use: Yes Smoking Status (MU): Current Every Day Smoker Type: Cigarettes Amount Used/How Often: 5-7 CIG/DAY Length of Time of Smoking/Using Tobacco: 17 years Have You Smoked in the Last Year: Yes Physical Exam Vital Signs On Initial Exam: Initial Vitals Temp Pulse Resp BP Pulse Ox 97.7 F 88 20 142/76 100 08/22/16 17:51 08/22/16 17:51 08/22/16 17:51 08/22/16 17:51 08/22/16 17:51 - [place] Coma Scale Coma Scale Total: 15 Diagnostics - Vital Signs Vital Signs Temp Pulse Resp BP Pulse Ox 08/22/16 18:13 137/85 08/22/16 18:11 96 92 08/22/16 17:56 98.8 F 94 16 142/76 100 08/22/16 17:51 97.7 F 88 20 142/76 100 - Laboratory Lab Statement: Any lab studies that have been ordered have been reviewed, and results considered in the medical decision making process. 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 Facial Paresis-Pt to Smile & Close Eyes or Grimace Symmetry: Normal/Symmetrical Motor Function - Right Arm: Drifts LT 10 seconds Motor Function - Left Arm: No Drift-Holds 10 Seconds Motor Function - Right Leg: No Drift-Holds 10 Seconds Motor Function - Left Leg: No Drift-Holds 10 Seconds Limb Ataxia-Must be out of Proportion to Weakness Present: Absent Sensory (Use Pinprick to Test Arms/Legs/Trunk/Face): Normal Best Language (Describe Picture, Name Items): No Aphasia Dysarthria (Read Several Words): Normal Extinction and Inattention: No Abnormality Total Score: 3 NIH Stroke Scale Comment: pt stating R arm "sharp tingly and painful"
--- NOTE | 2016-08-22 21:53 | RAD ---
INDICATION: Right-sided headache and right-sided weakness and numbness. COMPARISON: Comparison is made of with a prior CT of the brain from August 03, 2014. TECHNIQUE: Sagittal T1, axial T1, T2, susceptibility, FLAIR and diffusion weighted images were obtained. FINDINGS: The ventricles, cisterns and sulci appear to be within normal limits. No significant focal abnormality or mass effect is seen. No areas of restricted diffusion are present. There is no evidence for infarct or hemorrhage. The visualized portion of the paranasal sinuses and mastoid air cells appear clear. IMPRESSION: NEGATIVE EXAM.
[2016-08-22 22:53] VITALS: BP 107/66
== END | disposition home or self-care (01) ==
LOC: ED 17:39
DX: G43.909 Migraine, unspecified, not intractable, without status migrainosus (principal); F17.200 Nicotine dependence, unspecified, uncomplicated; H91.91 Unspecified hearing loss, right ear; R53.1 Weakness; R20.2 Paresthesia of skin
CPT/HCPCS: 70551; 93005; 96361; 96365; 96366; 96374; 96375; 99283; A9270-GY; J1200; J1885; J2060; J2405

== ENCOUNTER 2016-08-24 17:43 | Emergency (ER) | payer OTHER ==
[2016-08-24 19:08] LABS: Add Diff/Slide Review? Slide Review Added; Comments Flag Yes; Hematocrit 39 % (35-47); Hemoglobin 12.9 g/dl (12.0-16.0); Mean Corpuscular HGB Conc 33 g/dl (31-36); Mean Corpuscular Hemoglobin 29 pg (27-31); Mean Corpuscular Volume 86 fL (80-97); Mean Platelet Volume 11 um3 (7.4-10.4); Red Blood Count 4.52 10^6/ul (4.0-5.4); Red Cell Distribution Width 13 % (10.5-15); White Blood Count 9.9 10^3/ul (3.5-10.8)
[2016-08-24 19:20] LABS: Albumin 3.9 g/dL (3.2-5.2); BUN/Creatinine Ratio 18.3 (8-20); C Reactive Protein 2.54 mg/L (< 5.00); Calcium 9.2 mg/dL (8.6-10.3); EGFR African American 153.1 (>60); Globulin 2.3 g/dL (2-4); Total Bilirubin 0.3 mg/dL (0.2-1.0); Total Protein 6.2 g/dL (6.4-8.9)
[2016-08-24] MEDS ORDERED: Ketorolac INJ* 30 MG/ML 1 ML VIAL IV PUSH ONE (20:27)
[2016-08-24] MEDS ORDERED: Metoclopramide IV* 5 MG/ML 2 ML VIAL IV SLOW PU ONE (20:28)
[2016-08-24] MEDS ORDERED: NS 0.9% 1000 ML* 2,000 ML IV ONE (20:28)
[2016-08-24] MEDS ORDERED: Caffeine Citrate INJ* 60 MG/3 ML IV ONE ×2 (20:29→22:00)
[2016-08-24 20:49] LABS: Urine Bacteria Absent (Absent); Urine Bilirubin Negative (Negative); Urine Glucose Negative (Negative); Urine Nitrite Negative (Negative)
[2016-08-24 21:30] VITALS: BP 131/67
--- NOTE | 2016-08-28 14:18 | ED ---
Wilma Mckinney Alok, scribed for Brian Ballard MD on 08/24/16 at 2011 . Headache - HPI Summary HPI Summary: 26F presents to the ED for a constant KEARNS since 3 days ago accompanied by right sided numbness/tingling, dizziness/lightheadedness and N/V. Pt also notes blurry vision and sometimes diplopia in the right eye. Pt states her numbness/ tingling comes and goes. Pt was seen at the ED 3 days ago for the same symptoms and had MRI done, discharged with furazadrol. Pt states that her KEARNS has been growing progressively worse since, causing her to fall once today, and also notes neck pain worsened when turning her head left. Her KEARNS is worsened when standing or sitting up. Pt was also seen at [facility] yesterday and had spinal tap done, which aggravated her KEARNS, and was discharged with toradol which mildly improved her KEARNS temporarily. PMHx includes h/o migraines but never with this severity. Pt is allergic to Ibuprofen. - History Of Current Complaint Chief Complaint: EDHeadache Stated Complaint: HEADACHE Time Seen by Provider: 08/24/16 18:11 Hx Obtained From: Patient Hx Last Menstrual Period: 1 MONTH AGO Onset/Duration: Started days ago, Still Present, Worse Since - Spinal tap yesterday Initially Headache Was: Moderate Currently Pain Is: Moderate Timing: Constant Aggravating Factor: Other - standing, sitting up. Spinal tap yesterday. Allevating Factors: Medication - Toradol Associated Signs And Symptoms: Dizziness, Nausea, Vomiting, Neck Pain - Allergies/Home Medications Allergies/Adverse Reactions: Allergies Allergy/AdvReac Type Severity Reaction Status Date / Time Hydrocodone [From Vicodin] Allergy Severe "MAKES MY Verified 07/31/16 20:06 SKIN FEEL WARM" Ibuprofen Allergy Severe Blisters, Verified 07/31/16 20:06 THROAT SWELLING Penicillins Allergy Severe Difficulty Verified 07/31/16 20:06 Breathing PMH/Surg Hx/FS Hx/Imm Hx Endocrine/Hematology History: Denies: Hx Anticoagulant Therapy, Hx Diabetes, Hx Thyroid Disease Cardiovascular History: Denies: Hx Congestive Heart Failure, Hx Deep Vein Thrombosis, Hx Hypertension , Hx Myocardial Infarction, Hx Pacemaker/ICD, Hx Peripheral Vascular Disease Respiratory History: Reports: Hx Asthma Denies: Hx Chronic Obstructive Pulmonary Disease (COPD), Hx Lung Cancer, Hx Pneumonia, Hx Pulmonary Embolism GI History: Reports: Other GI Disorders - hx bladder infection Denies: Hx Gall Bladder Disease, Hx Gastrointestinal Bleed, Hx Ulcer, Hx Urosepsis History: Reports: Hx Kidney Infection, Hx Kidney Stones, Hx Renal Disease - Her last kidney/bladder infection was about a year ago., Other Problems/ Disorders - UNABLE TO VOID TODAY Musculoskeletal History: Denies: Hx Arthritis, Hx Rheumatoid Arthritis, Hx Osteoporosis Sensory History: Denies: Hx Cataracts, Hx Contacts or Glasses, Hx Glaucoma, Hx Hearing Aid Opthamlomology History: Denies: Hx Cataracts, Hx Contacts or Glasses, Hx Glaucoma Neurological History: Reports: Hx Migraine Denies: Hx Dementia, Hx Headaches, Hx Seizures, Hx Transient Ischemic Attacks (TIA) Psychiatric History: Reports: Hx Bipolar Disorder - She takes depakote for this. , Other Psychiatric Issues/Disorders - bipolar Denies: Hx Anxiety, Hx Depression, Hx Panic Disorder, Hx Schizophrenia - Surgical History Surgery Procedure, Year, and Place: Tonsillectomy adenoidectomy. C section X4, Tubal Ligation - Immunization History Date of Tetanus Vaccine: Unknown Date of Influenza Vaccine: None Infectious Disease History: No Infectious Disease History: Reports: Hx of Known/Suspected MRSA - ? hx of leg wound Denies: Hx Clostridium Difficile, Hx Hepatitis, Hx Human Immunodeficiency Virus (HIV), Hx Shingles, Hx Tuberculosis, Hx Known/Suspected VRE, Hx Known/ Suspected VRSA, History Other Infectious Disease, Traveled Outside the [place] in Last 30 Days - Family History Known Family History: Positive: Cardiac Disease - mother had minor [place] at 46 y/o , Hypertension, Diabetes, Other - migraines mom had brain CA, depression, anxiet - Social History Occupation: Unemployed Lives: With Family Alcohol Use: None Hx Substance Use: No Substance Use Type: Reports: None Substance Use Comment - Amount & Last Used: prenatals state illicit drug use history Hx Tobacco Use: Yes Smoking Status (MU): Current Every Day Smoker Type: Cigarettes Amount Used/How Often: 5-7 CIG/DAY Length of Time of Smoking/Using Tobacco: 17 years Have You Smoked in the Last Year: Yes Review of Systems Negative: Fever, Chills Positive: Blurred Vision, Diplopia. Negative: Erythema Negative: Sore Throat Negative: Chest Pain Negative: Shortness Of Breath, Cough Positive: Vomiting, Nausea. Negative: Abdominal Pain Negative: dysuria, hematuria Negative: Myalgia, Edema Negative: Rash Neurological: Other - Dizziness Positive: Headache, Weakness All Other Systems Reviewed And Are Negative: Yes Physical Exam - Summary Physical Exam Summary: Constitutional: Well-developed, Well-nourished, Alert. (-) Distressed Skin: Warm, Dry HENT: Eyes: Conjunctiva normal Neck: Musculoskeletal ROM normal neck. (-) JVD, (-) Stridor, (-) Tracheal deviation Cardio: Rhythm regular, rate normal, Heart sounds normal; Intact distal pulses; The pedal pulses are 2+ and symmetric. Radial pulses are 2+ and symmetric. (-) Murmur Pulmonary/Chest wall: Effort normal. (-) Respiratory distress, (-) Wheezes, (-) Rales Abd: Soft. (-) Tenderness, (-) Distension, (-) Guarding, (-) Rebound Musculoskeletal: (-) Edema Lymph: (-) Cervical adenopathy Neuro: Alert, Oriented x3, Strength normal, Cranial nerves II-XII are grossly intact. (-) Dysmetria, (-) Nystagmus, (-) Ataxia by finger to nose testing, (-) Sensory deficit. Psych: Mood and affect Normal Triage Information Reviewed: Yes Vital Signs On Initial Exam: Initial Vitals Temp Pulse Resp BP Pulse Ox 97.5 F 81 20 132/83 96 08/24/16 17:53 08/24/16 17:53 08/24/16 17:53 08/24/16 17:53 08/24/16 17:53 Vital Signs Reviewed: Yes - [place] Coma Scale Coma Scale Total: 15 Diagnostics - Vital Signs Vital Signs Temp Pulse Resp BP Pulse Ox 08/24/16 17:53 97.5 F 81 20 132/83 96 - Laboratory Lab Results: Lab Results 08/24/16 Range/Units 18:55 WBC 9.9 (3.5-10.8) 10^3/ul RBC 4.52 (4.0-5.4) 10^6/ul Hgb 12.9 (12.0-16.0) g/dl Hct 39 (35-47) % MCV 86 (80-97) fL MCH 29 (27-31) pg MCHC 33 (31-36) g/dl RDW 13 (10.5-15) % Plt Count 169 (150-450) 10^3/ul MPV 11 H (7.4-10.4) um3 Neut % (Auto) 61.4 (38-83) % Lymph % (Auto) 25.4 (25-47) % [place] % (Auto) 5.5 (1-9) % Eos % (Auto) 5.9 (0-6) % Baso % (Auto) 1.8 (0-2) % Absolute Neuts (auto) 6.1 (1.5-7.7) 10^3/ul Absolute Lymphs (auto) 2.5 (1.0-4.8) 10^3/ul Absolute Monos (auto) 0.5 (0-0.8) 10^3/ul Absolute Eos (auto) 0.6 (0-0.6) 10^3/ul Absolute Basos (auto) 0.2 (0-0.2) 10^3/ul Absolute Nucleated RBC 0.02 10^3/ul Nucleated RBC % 0.2 Result Diagrams: 08/24/16 18:55 08/24/16 18:55 Lab Statement: Any lab studies that have been ordered have been reviewed, and results considered in the medical decision making process. Re-Evaluation - Re-Evaluation First Eval Re-Evaluation Time: 21:14 Change: Unchanged Comment: Pt has to leave due to family emergency and will sign out AMA. Pt understands the risks of leaving AMA including risk of worsening condition and . Headache Course/Dx - Course Course Of Treatment: We wanted to explore further into her neurological condition and see it through it completion, but she did not give us the opportunity and signed out AMA. - Diagnoses Provider Diagnoses: Paresthesia, spinal tap headache - Physician Notifications Discussed Care Of Patient With: Ryley Suh - Recommends pt lay flat and recieve IV fluids and IV caffine Time Discussed With Above Provider: 20:22 Discharge - Discharge Plan Condition: Stable Disposition: AGAINST MEDICAL ADVICE The documentation as recorded by the Wilma chowdary Alok accurately reflects the service I personally performed and the decisions made by me, Brian Ballard MD.
== END 2016-08-24 21:15 | disposition left against medical advice (07) ==
LOC: ED 17:43
DX: G97.1 Other reaction to spinal and lumbar puncture (principal); R20.2 Paresthesia of skin; R42 Dizziness and giddiness; R33.9 Retention of urine, unspecified; J45.909 Unspecified asthma, uncomplicated; H53.2 Diplopia; F32.9 Major depressive disorder, single episode, unspecified; Z87.442 Personal history of urinary calculi; Z88.5 Allergy status to narcotic agent; Z88.6 Allergy status to analgesic agent; Z88.0 Allergy status to penicillin; F17.210 Nicotine dependence, cigarettes, uncomplicated
CPT/HCPCS: 36415; 80053; 81003; 81015; 83605; 83690; 85025; 86140; 87086; 96374; 96375; 99283; J0706; J1885

== ENCOUNTER → 2016-08-26 10:35 | Emergency (ER) | payer OTHER ==
[2016-08-26 10:42] VITALS: BP 126/76
== END | disposition left against medical advice (07) ==
LOC: ED 10:35
DX: R51 Headache (principal); Z53.21 Procedure and treatment not carried out due to patient leaving prior to being seen by health care provider

== ENCOUNTER → 2016-09-18 06:12 | Emergency (ER) | payer OTHER ==
[~2016-09-18 06:12] MED LIST changes: -Acetaminophen TAB* 325 MG PO ONE; +Cephalexin CAP* 500 MG PO ONE; -LORazepam INJ* 2 MG/ML 1 ML VIAL IV PUSH ONE; +Metoclopramide IV* 5 MG/ML 2 ML VIAL IV SLOW PU ONE; -diPHENhydraMINE IV* 50 MG/ML 1 ml VIAL (BENADRYL) IV ONE
[2016-09-18 08:41] LABS: Hematocrit 40 % (35-47); Hemoglobin 13.1 g/dl (12.0-16.0); Mean Corpuscular HGB Conc 33 g/dl (31-36); Mean Corpuscular Hemoglobin 29 pg (27-31); Mean Corpuscular Volume 89 fL (80-97); Mean Platelet Volume 11 um3 (7.4-10.4); Red Blood Count 4.48 10^6/ul (4.0-5.4); Red Cell Distribution Width 13 % (10.5-15); White Blood Count 8.7 10^3/ul (3.5-10.8)
[2016-09-18 08:52] LABS: Urine Bacteria Absent (Absent); Urine Bilirubin Negative (Negative); Urine Glucose Negative (Negative); Urine Nitrite Negative (Negative)
[2016-09-18 08:57] LABS: BUN/Creatinine Ratio 19.3 (8-20); Calcium 9.1 mg/dL (8.6-10.3); EGFR African American 162.4 (>60); EGFR Non-African American 126.3 (>60); Globulin 2.6 g/dL (2-4); Potassium 3.9 mmol/L (3.5-5.0); Total Bilirubin 0.3 mg/dL (0.2-1.0); Total Protein 6.6 g/dL (6.4-8.9)
[2016-09-18 11:04] VITALS: BP 144/88
--- NOTE | 2016-09-21 22:47 | ED ---
Vanessa Mckinney Salem, scribed for Brian Ballard MD on 09/18/16 at 0756 . Headache - HPI Summary HPI Summary: Patient is a 26 y/o F who presents to the ED with a KEARNS, localized behind her right eye and in the back left, since last night. Pt was seen approximately a month ago with a KEARNS s/p LP. She reports V/D, but denies dysuria. Pt also denies recent head injury. She states that she was put on Depakote by mental health. - History Of Current Complaint Chief Complaint: EDHeadache Stated Complaint: HEADACHE Time Seen by Provider: 09/18/16 07:56 Hx Obtained From: Patient Hx Last Menstrual Period: 1 MONTH AGO Onset/Duration: Gradual Onset, Started hours ago, Still Present Initially Headache Was: Moderate Currently Pain Is: Moderate Timing: Constant Location of Headache: Other: - Localized behind her right eye and in the back left. Aggravating Factor: Nothing Allevating Factors: Nothing Associated Signs And Symptoms: Vomiting, Other (Noted In Comments) - Allergies/Home Medications Allergies/Adverse Reactions: Allergies Allergy/AdvReac Type Severity Reaction Status Date / Time Hydrocodone [From Vicodin] Allergy Severe "MAKES MY Verified 07/31/16 20:06 SKIN FEEL WARM" Ibuprofen Allergy Severe Blisters, Verified 07/31/16 20:06 THROAT SWELLING Penicillins Allergy Severe Difficulty Verified 07/31/16 20:06 Breathing PMH/Surg Hx/FS Hx/Imm Hx Endocrine/Hematology History: Denies: Hx Anticoagulant Therapy, Hx Diabetes, Hx Thyroid Disease Cardiovascular History: Denies: Hx Congestive Heart Failure, Hx Deep Vein Thrombosis, Hx Hypertension , Hx Myocardial Infarction, Hx Pacemaker/ICD, Hx Peripheral Vascular Disease Respiratory History: Reports: Hx Asthma Denies: Hx Chronic Obstructive Pulmonary Disease (COPD), Hx Lung Cancer, Hx Pneumonia, Hx Pulmonary Embolism GI History: Reports: Other GI Disorders - hx bladder infection Denies: Hx Gall Bladder Disease, Hx Gastrointestinal Bleed, Hx Ulcer, Hx Urosepsis History: Reports: Hx Kidney Infection, Hx Kidney Stones, Hx Renal Disease - Her last kidney/bladder infection was about a year ago., Other Problems/ Disorders - UNABLE TO VOID TODAY Musculoskeletal History: Denies: Hx Arthritis, Hx Rheumatoid Arthritis, Hx Osteoporosis Sensory History: Denies: Hx Cataracts, Hx Contacts or Glasses, Hx Glaucoma, Hx Hearing Aid Opthamlomology History: Denies: Hx Cataracts, Hx Contacts or Glasses, Hx Glaucoma Neurological History: Reports: Hx Migraine Denies: Hx Dementia, Hx Headaches, Hx Seizures, Hx Transient Ischemic Attacks (TIA) Psychiatric History: Reports: Hx Bipolar Disorder - She takes depakote for this. , Other Psychiatric Issues/Disorders - bipolar Denies: Hx Anxiety, Hx Depression, Hx Panic Disorder, Hx Schizophrenia - Surgical History Surgery Procedure, Year, and Place: Tonsillectomy adenoidectomy. C section X4, Tubal Ligation - Immunization History Date of Tetanus Vaccine: Unknown Date of Influenza Vaccine: None Infectious Disease History: Yes Infectious Disease History: Reports: Hx of Known/Suspected MRSA - ? hx of leg wound Denies: Hx Clostridium Difficile, Hx Hepatitis, Hx Human Immunodeficiency Virus (HIV), Hx Shingles, Hx Tuberculosis, Hx Known/Suspected VRE, Hx Known/ Suspected VRSA, History Other Infectious Disease, Traveled Outside the [place] in Last 30 Days - Family History Known Family History: Positive: Cardiac Disease - mother had minor [place] at 46 y/o , Hypertension, Diabetes, Other - migraines mom had brain CA, depression, anxiet - Social History Alcohol Use: None Hx Substance Use: No Substance Use Type: Reports: None Substance Use Comment - Amount & Last Used: prenatals state illicit drug use history Hx Tobacco Use: Yes Smoking Status (MU): Current Every Day Smoker Type: Cigarettes Amount Used/How Often: 5-7 CIG/DAY Length of Time of Smoking/Using Tobacco: 17 years Have You Smoked in the Last Year: Yes Review of Systems Negative: Fever, Chills Negative: Erythema Negative: Sore Throat Negative: Chest Pain Negative: Shortness Of Breath, Cough Positive: Vomiting, Diarrhea. Negative: Abdominal Pain, Nausea Negative: dysuria, hematuria Negative: Myalgia, Edema Negative: Rash Neurological: Other - No d Positive: Headache All Other Systems Reviewed And Are Negative: Yes Physical Exam - Summary Physical Exam Summary: Constitutional: Well-developed, Well-nourished, Alert. (-) Distressed. Uncomfortable. Skin: Warm, Dry HENT: Normocephalic; Atraumatic Eyes: Conjunctiva normal. Photophobia. Neck: Musculoskeletal ROM normal neck. (-) JVD, (-) Stridor, (-) Tracheal deviation Cardio: Rhythm regular, rate normal, Heart sounds normal; Intact distal pulses; The pedal pulses are 2+ and symmetric. Radial pulses are 2+ and symmetric. (-) Murmur Pulmonary/Chest wall: Effort normal. (-) Respiratory distress, (-) Wheezes, (-) Rales Abd: Soft, (-) Tenderness, (-) Distension, (-) Guarding, (-) Rebound Musculoskeletal: (-) Edema. Moves all extremities. Lymph: (-) Cervical adenopathy Neuro: Alert, Oriented x3. No focal neurological deficit. Psych: Mood and affect Normal Triage Information Reviewed: Yes Vital Signs On Initial Exam: Initial Vitals Temp Pulse Resp BP Pulse Ox 97.5 F 67 18 119/62 97 09/18/16 06:12 09/18/16 06:12 09/18/16 06:12 09/18/16 06:12 09/18/16 06:12 Vital Signs Reviewed: Yes - [place] Coma Scale Coma Scale Total: 15 Diagnostics - Vital Signs Vital Signs Temp Pulse Resp BP Pulse Ox 09/18/16 07:00 76 127/109 97 09/18/16 06:36 64 97 09/18/16 06:35 109/71 09/18/16 06:12 97.5 F 67 18 119/62 97 - Laboratory Result Diagrams: 09/18/16 08:25 09/18/16 08:25 Lab Statement: Any lab studies that have been ordered have been reviewed, and results considered in the medical decision making process. Re-Evaluation - Re-Evaluation First Eval Re-Evaluation Time: 09:50 Comment: Pt c/o of pain to left lower molar. It appears eroded away. Second Eval Re-Evaluation Time: 09:54 Comment: KEARNS resolved. Headache Course/Dx - Course Course Of Treatment: 26 y/o F who presents to the ED with a KEARNS, localized behind her right eye and in the back left, since last night. She reports V/D, but denies dysuria. She states that she has tolerated Toradol well in the past. Pt received Toradol, Reglan, Zofran, and fluids in the ED course. Pain is resolved and pt will be DC'd. - Diagnoses Provider Diagnoses: Migraine headache, UTI (urinary tract infection), Pain, dental Discharge - Discharge Plan Condition: Stable Disposition: HOME Prescriptions: Cephalexin CAP* [Keflex CAP*] 500 mg PO QID #14 cap Patient Education Materials: Migraine Headache (ED), Urinary Tract Infection in Women (ED), Toothache (ED) Referrals: [facility] [place] [facility] [Outside] Additional Instructions: Please follow up with a primary care provider and your dentist in a couple of days. RETURN TO THE EMERGENCY DEPARTMENT FOR CHANGING OR WORSENING SYMPTOMS The documentation as recorded by the Vanessa chowdary Salem accurately reflects the service I personally performed and the decisions made by me, Brian Ballard MD.
== END | disposition home or self-care (01) ==
LOC: ED 06:12
DX: G43.909 Migraine, unspecified, not intractable, without status migrainosus (principal); N39.0 Urinary tract infection, site not specified; K08.89 Other specified disorders of teeth and supporting structures; R51 Headache; R11.10 Vomiting, unspecified; F17.210 Nicotine dependence, cigarettes, uncomplicated; R19.7 Diarrhea, unspecified
CPT/HCPCS: 36415; 80053; 81003; 81015; 85027; 87086; 96374; 96375; 99283; A9270-GY; J1885; J2405

== ENCOUNTER 2016-09-22 10:40 | Emergency (ER) | payer OTHER ==
--- NOTE | 2016-09-22 12:55 | UC ---
Ear Complaint HPI - HPI Summary HPI Summary: 26 y/o female presents to the urgent care c/o RT ear pain with KEARNS for the past 2 days. Pt reports she has been having recurrent KEARNS with associated numbness and tingling ton the Rt side of her arm on and off for the past month, with multiple visits to the Ed MRI of head was performed 1 mothd ago and it was negative. She also has a LP at [facility] 2 moths ago and that is when her Kearns became more constant. Pt states she has appt with her PCP at the this coming Thursday at 2:30PM. She also states on her last visit to ED she was Dx with UTI and Rx Keflex which upset her stomach, now she has multiple episodes of diarrhea, N/V since last night. Pt stopped the Keflex today and has not taken anything to alleviate symptoms. Her KEARNS is behind the RT eye w/ light disturbance. Pt denies Fever, SOB. chest pain, urinary symptoms. - History of Current Complaint Chief Complaint: UCEar Stated Complaint: EAR COMPLAINT Time Seen by Provider: 09/22/16 12:26 Hx Obtained From: Patient Hx Last Menstrual Period: 09/15/2016 ?: No Onset/Duration: Gradual Onset, Lasting Days, Still Present Severity Initially: Moderate Severity Currently: Moderate Pain Intensity: 9 Pain Scale Used: 0-10 Numeric Alleviating Factors: Nothing Associated Signs/Symptoms: Positive: Hearing Loss, Swelling @ - below the RT ear - Allergies/Home Medications Allergies/Adverse Reactions: Allergies Allergy/AdvReac Type Severity Reaction Status Date / Time Hydrocodone [From Vicodin] Allergy Severe "MAKES MY Verified 07/31/16 20:06 SKIN FEEL WARM" Ibuprofen Allergy Severe Blisters, Verified 07/31/16 20:06 THROAT SWELLING Penicillins Allergy Severe Difficulty Verified 07/31/16 20:06 Breathing PMH/Surg Hx/FS Hx/Imm Hx Previously Healthy: No - Last month with multiples episodes of KEARNS Respiratory History: Asthma GI/ History: Other Other GI/ History: HX of bladder infections Psychological History: Bipolar Disorder Other History Of: Negative For: HIV, Hepatitis B, Hepatitis C, Anticoagulant Therapy - Surgical History Surgical History: Yes Surgery Procedure, Year, and Place: Tonsillectomy adenoidectomy. C section X4, Tubal Ligation - Family History Known Family History: Positive: Cardiac Disease - mother had minor [place] at 46 y/o , Hypertension, Diabetes, Other - migraines mom had brain CA, depression, anxiety - Social History Occupation: Unemployed Lives: With Family Alcohol Use: None Substance Use Type: None Substance Use Comment - Amount & Last Used: prenatals state illicit drug use history Smoking Status (MU): Current Every Day Smoker Type: Cigarettes Amount Used/How Often: 5-7 CIG/DAY Length of Time of Smoking/Using Tobacco: 17 years Have You Smoked in the Last Year: Yes Household Exposure Type: Cigarettes - Immunization History Most Recent Influenza Vaccination: declined for this year Most Recent Tetanus Shot: UTD Most Recent Pneumonia Vaccination: none Review of Systems Constitutional: Negative Skin: Negative Eyes: Negative ENT: Ear Ache - RT ear pain Respiratory: Negative Cardiovascular: Negative Gastrointestinal: Vomiting, Diarrhea, Nausea Genitourinary: Negative Motor: Weakness - RT side arm and hand weakness for the past moth Neurovascular: Negative Musculoskeletal: Negative Neurological: Weakness - Rt side arma and hand Psychological: Negative All Other Systems Reviewed And Are Negative: Yes Physical Exam Triage Information Reviewed: Yes Appearance: Well-Nourished, Pain Distress - mild pain distress laying on the examining table with the light off., Obese Vital Signs: Initial Vital Signs Temp 98.5 F 09/22/16 11:01 Pulse 61 09/22/16 11:01 Resp 18 09/22/16 11:01 BP 136/88 09/22/16 11:01 Pulse Ox 100 09/22/16 11:01 Vital Signs Reviewed: Yes Eye Exam: Normal Eyes: Positive: Conjunctiva Clear - PERRLA, EOMI, Fundi grossly normal. Positive photophobia ENT Exam: Normal ENT: Positive: Normal ENT inspection, Pharyngeal erythema - mild exudate, TM bulging - RT TM dull and bulging, no erythema. B/L ear canal w/o erythema or pus ., Tonsillar swelling. Negative: Nasal drainage, Tonsillar exudate Dental Exam: Normal Neck exam: Normal Neck: Positive: Enlarged Nodes @ - RT anterior cervical lynphadenopathy with tenderness on palpation. Tenderness below the RT auricle Respiratory Exam: Normal Respiratory: Positive: Chest non-tender, Lungs clear, Normal breath sounds Cardiovascular Exam: Normal Cardiovascular: Positive: RRR, No Murmur, Pulses Normal, Brisk Capillary Refill Abdominal Exam: Normal Abdomen Description: Positive: Nontender, No Organomegaly, Soft, CVA Tenderness (L) - mild. Negative: CVA Tenderness (R) Bowel Sounds: Positive: Present Musculoskeletal Exam: Normal Musculoskeletal: Positive: Strength Intact, ROM Intact, No Edema Neurological Exam: Normal Neurological: Positive: Alert, Muscle Tone Normal Psychological Exam: Normal Skin Exam: Normal Ear Complaint Course/Dx - Course Course Of Treatment: 26 y/o female presents to the urgent care c/o RT ear pain with KEARNS for the past 2 days. Pt reports she has been having recurrent KEARNS with associated numbness and tingling ton the Rt side of her arm on and off for the past month, with multiple visits to the Ed MRI of head was performed 1 mothago and it was negative. She also has a LP at [facility] 2 moths ago and that is when her Kearns became more constant. Pt states she has appt with her PCP at the this coming Thursday at 2:30PM. She also states on her last visit to ED she was Dx with UTI and Rx Keflex which upset her stomach, now she has multiple episodes of diarrhea, N/V since last night. Pt stopped the Keflex today and has not taken anything to alleviate symptoms. Her KEARNS is behind the RT eye w/ light disturbance. Pt denies Fever, SOB. chest pain, urinary symptoms. PE abnormal finding:ENT: Positive: Normal ENT inspection, Pharyngeal erythema - mild exudate, TM bulging - RT TM dull and bulging, no erythema. B/L ear canal w/o erythema or pus ., Tonsillar swelling. Negative: Nasal drainage, Tonsillar exudate. Rapid strep ordered, result: negative, Most likely viral pharyngitis. - Headache: Pt had multiple visits at the ER in the month of August for KEARNS. Head MRI negative. On records Pt Rx Clyndamycin for dental problem on 07/2016. Recently, Pt Rx Keflex for UTI on 08/19/2016 and she developed multiple episodes of diarrhea and N/V since last night. Today Pt presents with viral pharyngitis and Possible RT OTM, KEARNS, N/V and diarrhea. Pt do not presents with signs of dehydration. Pt given Toradol 60mg PO IM inj and zofran to alleviate symptoms.Pt tolerated well IM inj. UA ordered and results : +leukoesteraces. Pt denies vaginal discharge or urinary symptoms. UA sent for culture and sensitivity. Stool culture also ordered to r/o Jessica vazquez, Pt given stool kit and advised to bring sample to the clinic. Pt Rx Tramadol for 3 days to alleviate severe KEARNS and Zofran for N/V. Advised to increase hydration with Pedialyte OTC, east soft meals, rest and f/u he appt with her PPP this Thursday at 2:30pm for further evaluation and treatment. Also advised if KEARNS doesn't resolve with medication to immediately go to the ED for furhter work up. Pt understood and agreed, left the clinic ambulating and feeling better after the toradol Im inj. - Differential Dx/Diagnosis Differential Diagnosis/HQI/PQRI: Otitis Media, Pharyngitis, Other - UTI, headache, abdominal pain, Nausea, vomiting and diarrhea Provider Diagnoses: Acute otitis media, viral pharyngitis, Headache, Acute diarrhea r/o Jessica shepherd, - Physician Notifications Discussed Patient Care With: Ryley Mclean - Dr Mclean agreed with Pt's care and treatment. Discharge - Discharge Plan Condition: Stable Disposition: HOME Prescriptions: Acetaminophen TAB* [Tylenol TAB*] 650 mg PO Q6H PRN #20 tab PRN Reason: Pain Ondansetron TAB* [Zofran 4 MG Tab*] 4 mg PO Q6H PRN #12 tab PRN Reason: Vomiting traMADol TAB* [Ultram*] 50 mg PO Q12H PRN #9 tab MDD 300 PRN Reason: Pain Patient Education Materials: Migraine Headache (ED), Otitis Media (ED), Acute Diarrhea (ED) Referrals: [facility] [facility] [Outside] - 09/26/16 No Primary Care Phys,NOPCP [Primary Care Provider] - Additional Instructions: Please take medication as indicated for alleviate symptoms. Increase hydration , take Pedialyte or gatorade, eat soft meals. Please collect stool to sent to lab to r/o Jessica shepherd. f/u with your PCP at the [facility] on Thursday at 2:30pm for further evaluation and treatment on you Headaches. If pain do not improve please return to the urgent care for furhter ecaluation and treatment.
[2016-09-22] MEDS ORDERED: Ondansetron ODT TAB* 4 MG PO ONE (13:11)
[2016-09-22] MEDS ORDERED: Ketorolac INJ* 60 MG/2 ML VIAL IM ONE (13:12)
[2016-09-22 14:11] VITALS: BP 143/87
--- NOTE | 2016-09-24 09:13 | ED ---
Progress - Progress Note Progress Note: UIRINE CX (-). THANKS KERON Course/Dx - Course Course Of Treatment: 26 y/o female presents to the urgent care c/o RT ear pain with KEARNS for the past 2 days. Pt reports she has been having recurrent KEARNS with associated numbness and tingling ton the Rt side of her arm on and off for the past month, with multiple visits to the Ed MRI of head was performed 1 mothago and it was negative. She also has a LP at [facility] 2 moths ago and that is when her Kearns became more constant. Pt states she has appt with her PCP at the this coming Thursday at 2:30PM. She also states on her last visit to ED she was Dx with UTI and Rx Keflex which upset her stomach, now she has multiple episodes of diarrhea, N/V since last night. Pt stopped the Keflex today and has not taken anything to alleviate symptoms. Her KEARNS is behind the RT eye w/ light disturbance. Pt denies Fever, SOB. chest pain, urinary symptoms. PE abnormal finding:ENT: Positive: Normal ENT inspection, Pharyngeal erythema - mild exudate, TM bulging - RT TM dull and bulging, no erythema. B/L ear canal w/o erythema or pus ., Tonsillar swelling. Negative: Nasal drainage, Tonsillar exudate. Rapid strep ordered, result: negative, Most likely viral pharyngitis. - Headache: Pt had multiple visits at the ER in the month of August for KEARNS. Head MRI negative. On records Pt Rx Clyndamycin for dental problem on 07/2016. Recently, Pt Rx Keflex for UTI on 08/19/2016 and she developed multiple episodes of diarrhea and N/V since last night. Today Pt presents with viral pharyngitis and Possible RT OTM, KEARNS, N/V and diarrhea. Pt do not presents with signs of dehydration. Pt given Toradol 60mg PO IM inj and zofran to alleviate symptoms.Pt tolerated well IM inj. UA ordered and results : +leukoesteraces. Pt denies vaginal discharge or urinary symptoms. UA sent for culture and sensitivity. Stool culture also ordered to r/o Jessica vazquez, Pt given stool kit and advised to bring sample to the clinic. Pt Rx Tramadol for 3 days to alleviate severe KEARNS and Zofran for N/V. Advised to increase hydration with Pedialyte OTC, east soft meals, rest and f/u he appt with her PPP this Thursday at 2:30pm for further evaluation and treatment. Also advised if KEARNS doesn't resolve with medication to immediately go to the ED for furhter work up. Pt understood and agreed, left the clinic ambulating and feeling better after the toradol Im inj. - Diagnoses Provider Diagnoses: Dysuria
== END 2016-09-22 14:11 | disposition home or self-care (01) ==
LOC: UCEAST 10:40
DX: H66.91 Otitis media, unspecified, right ear (principal); J02.9 Acute pharyngitis, unspecified; R51 Headache; R19.7 Diarrhea, unspecified; Z88.5 Allergy status to narcotic agent
CPT/HCPCS: 81003; 84702; 87086; 87651; 96372; 99212; A9270-GY; G0463; J1885

== ENCOUNTER 2016-10-03 15:57 | Emergency (ER) | payer OTHER ==
[2016-10-03] MEDS ORDERED: diPHENhydraMINE IV* 50 MG/ML 1 ml VIAL (BENADRYL) SLOW PUSH ONE (16:58)
[2016-10-03] MEDS ORDERED: PROCHLORPERAZINE INJ 5 MG/ML 2 ML VIAL IV ONE (16:58)
--- NOTE | 2016-10-03 17:17 | UC ---
Headache HPI - HPI Summary HPI Summary: 26 yo female with right sided KEARNS x days no f/c nausea but no vomiting has had right sided HAs x months multiple ER visits Neg LP neg MRI sometimes has HAs with right sided numbness and blindness-that has not occurred with this KEARNS - History Of Current Complaint Chief Complaint: UCHeadache Stated Complaint: HEADACHE,VISION LOSS,RIGHT-SIDE WEAKNESS Time Seen by Provider: 10/03/16 16:46 Hx Obtained From: Patient Hx Last Menstrual Period: 09/22/16 Onset/Duration: Sudden Onset Onset Of Symptoms: Gradual Currently Pain Is: Severe Pain Intensity: 8 Pain Scale Used: 0-10 Numeric Timing: Constant Character: Throbbing, Typical Headache, Migraine Location of Headache: Frontal, Temporal, Parietal Aggravating Factor: Nothing Allevating Factors: Nothing Associated Signs And Symptoms: Positive: Nausea - Allergies/Home Medications Allergies/Adverse Reactions: Allergies Allergy/AdvReac Type Severity Reaction Status Date / Time Hydrocodone [From Vicodin] Allergy Severe "MAKES MY Verified 10/03/16 16:02 SKIN FEEL WARM" Ibuprofen Allergy Severe Blisters, Verified 10/03/16 16:02 THROAT SWELLING Penicillins Allergy Severe Difficulty Verified 10/03/16 16:02 Breathing Home Medications: Home Medications Amitriptyline TAB* [Elavil TAB*] 25 mg PO DAILY 10/03/16 [History Confirmed ] SUMAtriptan TAB* [Imitrex TAB*] 100 mg PO DAILY PRN 10/03/16 [History Confirmed 10/03/16] PMH/Surg Hx/FS Hx/Imm Hx Previously Healthy: Yes Neurological History: Migraine Other History Of: Negative For: HIV, Hepatitis B, Hepatitis C, Anticoagulant Therapy - Surgical History Surgical History: Yes Surgery Procedure, Year, and Place: Tonsillectomy adenoidectomy. C section X4, Tubal Ligation - Family History Known Family History: Positive: Cardiac Disease - mother had minor [place] at 46 y/o , Hypertension, Diabetes, Other - migraines mom had brain CA, depression, anxiety - Social History Alcohol Use: None Substance Use Type: None Substance Use Comment - Amount & Last Used: prenatals state illicit drug use history Smoking Status (MU): Current Every Day Smoker Type: Cigarettes Amount Used/How Often: 5-7 CIG/DAY Length of Time of Smoking/Using Tobacco: 17 years Have You Smoked in the Last Year: Yes Household Exposure Type: Cigarettes - Immunization History Most Recent Influenza Vaccination: declined for this year Most Recent Tetanus Shot: UTD Most Recent Pneumonia Vaccination: none Review of Systems Constitutional: Negative Skin: Negative Eyes: Negative ENT: Negative Respiratory: Negative Cardiovascular: Negative Gastrointestinal: Nausea Genitourinary: Negative Motor: Negative Neurovascular: Negative Musculoskeletal: Negative Neurological: Headache Psychological: Negative All Other Systems Reviewed And Are Negative: Yes Physical Exam Triage Information Reviewed: Yes Appearance: Well-Appearing, No Pain Distress, Well-Nourished Vital Signs: Initial Vital Signs Temp 97.7 F 10/03/16 15:58 Pulse 98 10/03/16 15:58 Resp 16 10/03/16 15:58 BP 119/77 10/03/16 15:58 Pulse Ox 98 10/03/16 15:58 Eyes: Positive: Conjunctiva Clear, Other: - eomi/perrl ENT: Positive: Hearing grossly normal. Negative: Nasal congestion, Nasal drainage, Trismus, Muffled/hoarse voice Neck: Positive: Supple, Nontender Respiratory: Positive: Lungs clear, Normal breath sounds, No respiratory distress Cardiovascular: Positive: RRR, No Murmur Abdomen Description: Positive: Nontender, No Organomegaly Musculoskeletal: Positive: ROM Intact, No Edema Neurological: Positive: Alert Psychological Exam: Normal Skin Exam: Normal Re-Evaluation - Re-Evaluation First Eval Re-Evaluation Time: 18:36 Change: Improved - KEARNS gone Headache Course/Dx - Differential Dx/Diagnosis Provider Diagnoses: migraine Discharge - Discharge Plan Condition: Stable Disposition: HOME Patient Education Materials: Migraine Headache (ED) Referrals: Ryley Suh MD [Medical Doctor] - As Soon As Possible Additional Instructions: see your MD oin the th as planned to er for new or worsening symptoms
[2016-10-03] MEDS ORDERED: Ketorolac INJ* 30 MG/ML 1 ML VIAL IV ONE (18:07)
[2016-10-03 18:38] VITALS: BP 111/58
== END 2016-10-03 19:16 | disposition home or self-care (01) ==
LOC: UCEAST 15:57
DX: G43.909 Migraine, unspecified, not intractable, without status migrainosus (principal); Z72.0 Tobacco use
CPT/HCPCS: 96374; 96375; 99211; G0463; J0780; J1200; J1885

== ENCOUNTER 2017-02-24 09:06 | Emergency (ER) | payer OTHER ==
[2017-02-24 10:54] LABS: Hematocrit 42 % (35-47); Hemoglobin 14.2 g/dl (12.0-16.0); Mean Corpuscular HGB Conc 34 g/dl (31-36); Mean Corpuscular Hemoglobin 30 pg (27-31); Mean Corpuscular Volume 88 fL (80-97); Mean Platelet Volume 11 um3 (7.4-10.4); Red Cell Distribution Width 13 % (10.5-15); White Blood Count 9.8 10^3/ul (3.5-10.8)
[2017-02-24 11:00] LABS: Urine Bilirubin Negative (Negative); Urine Glucose Negative (Negative); Urine Nitrite Negative (Negative)
[2017-02-24 11:12] VITALS: BP 152/85
[2017-02-24 11:14] LABS: ALT 14 U/L (7-52); AST 13 U/L (13-39); Albumin 4.3 g/dL (3.2-5.2); Alkaline Phosphatase 87 U/L (34-104); Anion Gap 10 mmol/L (2-11); BUN/Creatinine Ratio 19.7 (8-20); Blood Urea Nitrogen 12 mg/dL (6-24); CO2 Carbon Dioxide 24 mmol/L (22-32); Calcium 9.5 mg/dL (8.6-10.3); Chloride 107 mmol/L (101-111); EGFR African American 149.1 (>60); Globulin 2.6 g/dL (2-4); Glucose 111 mg/dL (70-100); Lipase 18 U/L (11.0-82.0); Potassium 3.8 mmol/L (3.5-5.0); Sodium 141 mmol/L (133-145); Total Protein 6.9 g/dL (6.4-8.9)
--- NOTE | 2017-02-24 11:14 | ED ---
Abdominal Pain/Female - HPI Summary HPI Summary: 27 female presents to ED with complaints of diffuse abdominal discomfort that has been on going for the past day, began early this morning around 0230. Patient also noticed this morning some bruising on her lower abdomen that she does not know where they came from. States they are painful to touch, also has pain behind belly button and left flank. Patient denies any vomiting, nausea, constipation, diarrhea and fever/chills. No known PMHx. No other complaints. Has not taken any medication. Admits to eating out. Denies recent travel. Admits to recent antibiotic use for her recently diagnosed bronchitis that has since improved. Stopped medication a few days ago. Denies vaginal symptoms. - History of Current Complaint Chief Complaint: EDAbdPain Stated Complaint: FEVER, FLANK PAIN Time Seen by Provider: 02/24/17 10:05 Hx Obtained From: Patient Hx Last Menstrual Period: 09/22/16 Onset/Duration: Sudden Onset, Lasting Days, Still Present Timing: Constant Severity Initially: Moderate Severity Currently: Severe Pain Intensity: 10 Pain Scale Used: 0-10 Numeric Location: Diffuse - lower, Umbilical Radiates to: Flank Character: Dull - aching Aggravating Factor(s): Nothing Alleviating Factor(s): Nothing Allergies/Adverse Reactions: Allergies Allergy/AdvReac Type Severity Reaction Status Date / Time Hydrocodone [From Vicodin] Allergy Severe "MAKES MY Verified 02/24/17 09:08 SKIN FEEL WARM" Ibuprofen Allergy Severe Blisters, Verified 02/24/17 09:08 THROAT SWELLING Penicillins Allergy Severe Difficulty Verified 02/24/17 09:08 Breathing PMH/Surg Hx/FS Hx/Imm Hx Endocrine/Hematology History: Denies: Hx Anticoagulant Therapy, Hx Diabetes, Hx Thyroid Disease Cardiovascular History: Denies: Hx Congestive Heart Failure, Hx Deep Vein Thrombosis, Hx Hypertension , Hx Myocardial Infarction, Hx Pacemaker/ICD, Hx Peripheral Vascular Disease Respiratory History: Reports: Hx Asthma Denies: Hx Chronic Obstructive Pulmonary Disease (COPD), Hx Lung Cancer, Hx Pneumonia, Hx Pulmonary Embolism GI History: Reports: Other GI Disorders - hx bladder infection Denies: Hx Gall Bladder Disease, Hx Gastrointestinal Bleed, Hx Ulcer, Hx Urosepsis History: Reports: Hx Kidney Infection, Hx Kidney Stones, Hx Renal Disease - Her last kidney/bladder infection was about a year ago., Other Problems/ Disorders - UNABLE TO VOID TODAY Musculoskeletal History: Denies: Hx Arthritis, Hx Rheumatoid Arthritis, Hx Osteoporosis Sensory History: Denies: Hx Cataracts, Hx Contacts or Glasses, Hx Glaucoma, Hx Hearing Aid Opthamlomology History: Denies: Hx Cataracts, Hx Contacts or Glasses, Hx Glaucoma Neurological History: Reports: Hx Migraine Denies: Hx Dementia, Hx Headaches, Hx Seizures, Hx Transient Ischemic Attacks (TIA) Psychiatric History: Reports: Hx Bipolar Disorder - She takes depakote for this. , Other Psychiatric Issues/Disorders - bipolar Denies: Hx Anxiety, Hx Depression, Hx Panic Disorder, Hx Schizophrenia - Surgical History Surgery Procedure, Year, and Place: Tonsillectomy adenoidectomy. C section X4, Tubal Ligation - Immunization History Date of Tetanus Vaccine: Unknown Date of Influenza Vaccine: None Immunizations Up to Date: Yes Infectious Disease History: No Infectious Disease History: Reports: Hx of Known/Suspected MRSA - ? hx of leg wound Denies: Hx Clostridium Difficile, Hx Hepatitis, Hx Human Immunodeficiency Virus (HIV), Hx Shingles, Hx Tuberculosis, Hx Known/Suspected VRE, Hx Known/ Suspected VRSA, History Other Infectious Disease, Traveled Outside the [place] in Last 30 Days - Family History Known Family History: Positive: Cardiac Disease - mother had minor [place] at 46 y/o , Hypertension, Diabetes, Other - migraines mom had brain CA, depression, anxiety - Social History Alcohol Use: None Hx Substance Use: No Substance Use Type: Reports: None Substance Use Comment - Amount & Last Used: prenatals state illicit drug use history Hx Tobacco Use: Yes Smoking Status (MU): Current Every Day Smoker Type: Cigarettes Amount Used/How Often: 5-7 CIG/DAY Length of Time of Smoking/Using Tobacco: 17 years Have You Smoked in the Last Year: Yes Review of Systems Constitutional: Negative Cardiovascular: Negative Respiratory: Negative Positive: Abdominal Pain Positive: Bruising All Other Systems Reviewed And Are Negative: Yes Physical Exam Triage Information Reviewed: Yes Vital Signs On Initial Exam: Initial Vitals Temp Pulse Resp BP Pulse Ox 97.1 F 96 20 128/90 97 02/24/17 09:08 02/24/17 09:08 02/24/17 09:08 02/24/17 09:08 02/24/17 09:08 Vital Signs Reviewed: Yes Appearance: Positive: Well-Appearing, No Pain Distress, Well-Nourished Skin: Positive: Warm, Skin Color Reflects Adequate Perfusion, Dry, Other - old healing bruising of lower abdomen, yellow in color. Negative: Jaundiced Head/Face: Positive: Normal Head/Face Inspection Eyes: Positive: Conjunctiva Clear ENT: Positive: Pharynx normal, Pharyngeal erythema, TMs normal, Uvula midline Neck: Positive: Supple, Nontender Respiratory/Lung Sounds: Positive: Clear to Auscultation, Breath Sounds Present. Negative: Rales, Rhonchi, Wheezes Cardiovascular: Positive: Normal, RRR, Pulses are Symmetrical in both Upper and Lower Extremities. Negative: Murmur, Rub Abdomen Description: Positive: No Organomegaly, Soft, CVA Tenderness (L), Other : - tender on palpation diffusely around bruising of lower abdomen, specifically. Negative: Bruit, CVA Tenderness (R), Distended, Guarding, McBurney's Point Tenderness, Peritoneal Signs Bowel Sounds: Positive: Present Pelvic Exam: Positive: other - patient deferred exam Musculoskeletal: Positive: Normal, Strength/ROM Intact Neurological: Positive: Normal, Sensory/Motor Intact, Alert, Oriented to Person Place, Time - [place] Coma Scale Coma Scale Total: 15 Diagnostics - Vital Signs Vital Signs Temp Pulse Resp BP Pulse Ox 02/24/17 11:00 65 152/85 96 02/24/17 10:34 147/72 02/24/17 10:24 77 97 02/24/17 10:15 74 96 02/24/17 10:13 143/86 02/24/17 09:08 97.1 F 96 20 128/90 97 - Laboratory Lab Results: Lab Results 02/24/17 02/24/17 02/24/17 Range/Units 10:21 10:21 10:21 WBC 9.8 (3.5-10.8) 10^3/ul RBC 4.80 (4.0-5.4) 10^6/ul Hgb 14.2 (12.0-16.0) g/dl Hct 42 (35-47) % MCV 88 (80-97) fL MCH 30 (27-31) pg MCHC 34 (31-36) g/dl RDW 13 (10.5-15) % Plt Count 172 (150-450) 10^3/ul MPV 11 H (7.4-10.4) um3 Neut % (Auto) 63.2 (38-83) % Lymph % (Auto) 27.8 (25-47) % Zavala % (Auto) 4.9 (1-9) % Eos % (Auto) 3.7 (0-6) % Baso % (Auto) 0.4 (0-2) % Absolute Neuts (auto) 6.2 (1.5-7.7) 10^3/ul Absolute Lymphs (auto) 2.7 (1.0-4.8) 10^3/ul Absolute Monos (auto) 0.5 (0-0.8) 10^3/ul Absolute Eos (auto) 0.4 (0-0.6) 10^3/ul Absolute Basos (auto) 0 (0-0.2) 10^3/ul Absolute Nucleated RBC 0.01 10^3/ul Nucleated RBC % 0.1 INR (Anticoag Therapy) 0.92 (0.77-1.02) APTT 32.2 (26.0-36.3) seconds Lactic Acid 1.0 (0.5-2.0) mmol/L Urine Color Urine Appearance Urine pH (5-9) Ur Specific Mor[place] (1.010-1.030) Urine Protein (Negative) Urine Ketones (Negative) Urine Blood (Negative) Urine Nitrate (Negative) Urine Bilirubin (Negative) Urine Urobilinogen (Negative) Ur Leukocyte Esterase (Negative) Urine Glucose (Negative) 02/24/17 Range/Units 10:35 WBC (3.5-10.8) 10^3/ul RBC (4.0-5.4) 10^6/ul Hgb (12.0-16.0) g/dl Hct (35-47) % MCV (80-97) fL MCH (27-31) pg MCHC (31-36) g/dl RDW (10.5-15) % Plt Count (150-450) 10^3/ul MPV (7.4-10.4) um3 Neut % (Auto) (38-83) % Lymph % (Auto) (25-47) % Zavala % (Auto) (1-9) % Eos % (Auto) (0-6) % Baso % (Auto) (0-2) % Absolute Neuts (auto) (1.5-7.7) 10^3/ul Absolute Lymphs (auto) (1.0-4.8) 10^3/ul Absolute Monos (auto) (0-0.8) 10^3/ul Absolute Eos (auto) (0-0.6) 10^3/ul Absolute Basos (auto) (0-0.2) 10^3/ul Absolute Nucleated RBC 10^3/ul Nucleated RBC % INR (Anticoag Therapy) (0.77-1.02) APTT (26.0-36.3) seconds Lactic Acid (0.5-2.0) mmol/L Urine Color Yellow Urine Appearance Cloudy Urine pH 5.0 (5-9) Ur Specific [place] 1.024 (1.010-1.030) Urine Protein Negative (Negative) Urine Ketones Negative (Negative) Urine Blood Negative (Negative) Urine Nitrate Negative (Negative) Urine Bilirubin Negative (Negative) Urine Urobilinogen Negative (Negative) Ur Leukocyte Esterase Negative (Negative) Urine Glucose Negative (Negative) Result Diagrams: 02/24/17 10:21 02/24/17 10:21 Lab Statement: Any lab studies that have been ordered have been reviewed, and results considered in the medical decision making process. - CT ct abd/pelvis CT Interpretation: No Acute Changes - NO ACUTE CT FINDINGS. NO EVIDENCE OF UROLITHIASIS. CT Interpretation Completed By: Radiologist - and myself Re-Evaluation - Re-Evaluation First Eval Re-Evaluation Time: 13:30 Change: Improved - had relief after medication updated on labs and imaging Abdominal Pain Fem Course/Dx - Course Course Of Treatment: labs obtained and hcg. negative and unremarkable labs without wbc elevation or crp elevation. given tylenol and had relief. encouraged fluids and probiotics. BRAT diet. negative CT and urinalysis. aware of worsening signs and symptoms. follow up pcp. no other concerns at this time. - Diagnoses Differential Diagnosis: Positive: Constipation, Renal Colic, Urinary Tract Infection, Other - abdominal pain, flank pain, renal calculi Provider Diagnoses: Gastroenteritis, Abdominal pain, Bruising Discharge - Discharge Plan Condition: Stable Disposition: HOME Prescriptions: Ondansetron ODT TAB* [Zofran 4 MG Odt TAB*] 4 mg PO Q6H PRN #15 tab.odt PRN Reason: Nausea Patient Education Materials: Gastroenteritis (ED), Acute Abdominal Pain (ED), Viral Syndrome (ED) Referrals: [facility] [Outside] No Primary Care Phys,NOPCP [Primary Care Provider] - Additional Instructions: Take prescribed zofran as needed for nausea. Recommend pepto and probiotic use as needed for abdominal discomfort and symptoms. Stick to a high fiber, BRAT (bananas, rice, appplesauce and toast) diet to help with diarrhea. Rest, increase fluid intake. Tylenol for body aches and discomfort. Follow up with PCP. Any new or worsening symptoms please seek medical attention promptly.
--- NOTE | 2017-02-24 12:29 | RAD ---
INDICATION: Flank pain COMPARISON: CT abdomen pelvis May 10, 2012 TECHNIQUE: Noncontrast axial source images were acquired from the level hemidiaphragms to the symphysis pubis as part of CT imaging for renal stone. Lung bases: The lung bases are clear. Liver: The liver is normal in size. Noncontrast imaging shows no evidence of a hepatic mass or ductal dilatation. Gallbladder: There are no calcified gallstones. There is no evidence of wall thickening or pericholecystic fluid.. Spleen: The spleen is normal in size. The noncontrast CT appearance is normal. Pancreas: Noncontrast imaging shows no pancreatic mass or ductal dilitation. Adrenal glands: No masses are identified. Kidneys/Bladder: There is no evidence of nephrolithiasis or CT evidence of hydronephrosis. Noncontrast imaging shows no evidence of a renal mass. The bladder is unremarkable.. Adenopathy: There is no evidence of intraperitoneal or retroperitoneal adenopathy. Evaluation is limited without oral contrast. Fluid collections: There are no free or localized fluid collections. Vessels: The aorta and iliac vessels are normal in caliber. There are no significant atherosclerotic changes. The IVC appears normal Pelvic organs: The uterus and adnexa appear normal GI tract: Evaluation of the bowel is limited without oral contrast. The stomach, small bowel, and lower GI tract appear grossly normal. There are no obstructive findings. The appendix is visualized and appears normal. Soft tissues: There is mild diastases of the rectus abdominis musculature with a small fat-containing ventral hernia. Osseous structures: There are no acute osseous findings. IMPRESSION: NO ACUTE CT FINDINGS. NO EVIDENCE OF UROLITHIASIS.
[2017-02-24] MEDS ORDERED: Acetaminophen TAB* 325 MG PO ONE (12:43)
== END 2017-02-24 13:20 | disposition home or self-care (01) ==
LOC: ED 09:06
DX: K52.9 Noninfective gastroenteritis and colitis, unspecified (principal); R10.9 Unspecified abdominal pain; T14.8XXA Other injury of unspecified body region, initial encounter; F17.220 Nicotine dependence, chewing tobacco, uncomplicated; Z88.5 Allergy status to narcotic agent; Z88.2 Allergy status to sulfonamides; X58.XXXA Exposure to other specified factors, initial encounter; Y92.9 Unspecified place or not applicable
CPT/HCPCS: 36415; 74176; 80053; 81003; 83605; 83690; 84702; 85025; 85610; 85730; 86140; 99282

== ENCOUNTER 2017-03-18 10:15 | Emergency (ER) | payer OTHER ==
[2017-03-18 10:28] VITALS: BP 132/69
--- NOTE | 2017-03-18 11:16 | UC ---
Respiratory Complaint HPI - HPI Summary HPI Summary: ONSET OF COUGH, CONGESTION, ST, EAR PAIN, KEARNS THIS MORNING. NO FEVER. - History of Current Complaint Chief Complaint: UCRespiratory Stated Complaint: SORE THROAT HURTS TO BREATH Time Seen by Provider: 03/18/17 10:52 Hx Obtained From: Patient Hx Last Menstrual Period: 09/22/16 Onset/Duration: Gradual Onset, Lasting Hours, Still Present Timing: Constant Severity Initially: Moderate Severity Currently: Moderate Pain Intensity: 10 - IN ROOM IN NO ACUTE DISTRESS Pain Scale Used: 0-10 Numeric Character: Cough: Nonproductive Aggravating Factors: Nothing Alleviating Factors: Nothing Associated Signs And Symptoms: Positive: URI, Nasal Congestion - Allergies/Home Medications Allergies/Adverse Reactions: Allergies Allergy/AdvReac Type Severity Reaction Status Date / Time Hydrocodone [From Vicodin] Allergy Severe "MAKES MY Verified 03/18/17 10:24 SKIN FEEL WARM" Ibuprofen Allergy Severe Blisters, Verified 03/18/17 10:24 THROAT SWELLING Penicillins Allergy Severe Difficulty Verified 03/18/17 10:24 Breathing PMH/Surg Hx/FS Hx/Imm Hx Respiratory History: Asthma Other History Of: Negative For: HIV, Hepatitis B, Hepatitis C, Anticoagulant Therapy - Surgical History Surgical History: Yes Surgery Procedure, Year, and Place: Tonsillectomy adenoidectomy. C section X4, Tubal Ligation - Family History Known Family History: Positive: Cardiac Disease - mother had minor [place] at 46 y/o , Hypertension, Diabetes, Other - migraines mom had brain CA, depression, anxiety - Social History Alcohol Use: None Substance Use Type: None Substance Use Comment - Amount & Last Used: prenatals state illicit drug use history Smoking Status (MU): Current Every Day Smoker Type: Cigarettes Amount Used/How Often: 5-7 CIG/DAY Length of Time of Smoking/Using Tobacco: 17 years Have You Smoked in the Last Year: Yes Household Exposure Type: Cigarettes - Immunization History Most Recent Influenza Vaccination: declined for this year Most Recent Tetanus Shot: UTD Most Recent Pneumonia Vaccination: none Review of Systems Constitutional: Fatigue ENT: Sore Throat, Ear Ache, Nasal Discharge Respiratory: Cough Cardiovascular: Negative Gastrointestinal: Negative Neurological: Headache All Other Systems Reviewed And Are Negative: Yes Physical Exam Triage Information Reviewed: Yes Appearance: Well-Appearing, No Pain Distress, Well-Nourished Vital Signs: Initial Vital Signs Temp 98.1 F 03/18/17 10:25 Pulse 89 03/18/17 10:25 Resp 16 03/18/17 10:25 BP 132/69 03/18/17 10:25 Pulse Ox 100 03/18/17 10:25 Vital Signs Reviewed: Yes Eyes: Positive: Conjunctiva Clear ENT: Positive: Hearing grossly normal, Pharynx normal, TMs normal Neck: Positive: Supple, Nontender, No Lymphadenopathy Respiratory Exam: Normal Cardiovascular Exam: Normal Abdomen Description: Positive: Soft Musculoskeletal: Positive: No Edema Neurological: Positive: Alert Psychological: Positive: Age Appropriate Behavior Skin: Negative: rashes UC Diagnostic Evaluation - Laboratory O2 Sat by Pulse Oximetry: 100 Diagnostic Studies Comment: RAPID STREP NEGATIVE Respiratory Course/Dx - Differential Dx/Diagnosis Provider Diagnoses: ACUTE URI Discharge - Discharge Plan Condition: Stable Disposition: HOME Patient Education Materials: Upper Respiratory Infection (ED) Forms: *Gen. Provider Communication Referrals: No Primary Care Phys,NOPCP [Primary Care Provider] - Additional Instructions: STREP TEST NEGATIVE. YOUR SYMPTOMS ARE LIKELY VIRALLY MEDIATED AND SHOULD RESOLVE ON THEIR OWN WITH TIME. REST, HYDRATE, OTC MEDS NEEDED. SEEK FOLLOW-UP IF YOU ARE NOT IMPROVING OVER THE NEXT 1-2 WEEKS. CALL THE NUMBER BELOW FOR ASSISTANCE IN ESTABLISHING WITH A PCP An additional resource available to assist in finding the appropriate physician for your health care needs is [facility] ([facility]). You may contact them by calling [phone].
== END 2017-03-18 11:27 | disposition home or self-care (01) ==
LOC: UCEAST 10:15
DX: J06.9 Acute upper respiratory infection, unspecified (principal); Z72.0 Tobacco use
CPT/HCPCS: 87651; 99211; G0463

== ENCOUNTER 2017-04-13 11:22 | Emergency (ER) | payer OTHER ==
[2017-04-13] MEDS ORDERED: NS 0.9% 1000 ML* 1,000 ML IV ONE (11:44)
[2017-04-13 12:02] LABS: ABS Basophils 0 10^3/ul (0-0.2); ABS Eosinophils 0.3 10^3/ul (0-0.6); ABS Lymphocytes 3.2 10^3/ul (1.0-4.8); ABS Monocytes 0.6 10^3/ul (0-0.8); ABS Neutrophils 6.1 10^3/ul (1.5-7.7); ABS Nucleated RBC 0 10^3/ul; Eosinophil % 3.4 % (0-6); Hematocrit 41 % (35-47); Hemoglobin 13.9 g/dl (12.0-16.0); Mean Corpuscular HGB Conc 34 g/dl (31-36); Mean Corpuscular Hemoglobin 30 pg (27-31); Mean Corpuscular Volume 88 fL (80-97); Mean Platelet Volume 11 um3 (7.4-10.4); Nucleated Red Blood Cells % 0; Platelet Count 191 10^3/ul (150-450); Red Cell Distribution Width 13 % (10.5-15); White Blood Count 10.4 10^3/ul (3.5-10.8)
[2017-04-13 12:09] LABS: Urine Appearance Cloudy; Urine Blood Negative (Negative); Urine Color Amber; Urine Ketones Trace (Negative); Urine Protein Negative (Negative); Urine Specific Gravity 1.032 (1.010-1.030); Urine Urobilinogen Negative (Negative)
[2017-04-13 12:22] LABS: EGFR Non-African American 100.6 (>60)
[2017-04-13] MEDS ORDERED: Iohexol 300* (CONTRAST) 10 ML SDV IV ONE (12:48)
[2017-04-13] MEDS ORDERED: Potassium Chlor TAB* 20 MEQ TAB.ER PO ONE (14:58)
--- NOTE | 2017-04-13 14:59 | RAD ---
CLINICAL HISTORY: Left flank pain. COMPARISON: Most recent CT examination is dated February 05, 2011 TECHNIQUE: Contrast enhanced CT examination of the abdomen and pelvis from the lung bases through the initial tuberosities. The patient received 145 mL Omnipaque 300 intravenously prior to imaging.The patient received oral contrast as well prior to imaging. FINDINGS: VISUALIZED LUNG BASES: The visualized lung bases are grossly clear. There is no pleural effusion. ABDOMEN AND PELVIS: The liver, spleen, pancreas and adrenal glands are grossly normal in appearance. The gallbladder is normal. The kidneys are normal in appearance without focal mass, calcification or signs of hydronephrosis. The oral contrast has progressed as far as the proximal sigmoid colon. The small and large bowel are not distended. The patient's normal appendix is identified in the right lower quadrant with contrast the lumen measuring 6 mm in diameter (axial image 70 and sagittal image 59). At the terminal ileum there is a mild degree of wall thickening measuring 6 mm in thickness (coronal image 47). There is wall thickening that begins at the descending colon (coronal image 54) and extends at least as far as the sigmoid colon where the bowel measures up to 8 mm in thickness (coronal image 43). There is no gross retroperitoneal or mesenteric lymphadenopathy. The pelvic viscera is normal in appearance. The abdominal aorta and iliac arteries are normal in course and diameter. There are no sinister bone lesions. IMPRESSION: Questionable inflammatory wall thickening of the terminal ileum and more definite inflammatory wall thickening involving the distal colon from descending colon to the sigmoid colon. Infectious or inflammatory etiologies should be considered. The presence of "skip lesions" are associated with Crohn's disease.
[2017-04-13 16:02] VITALS: BP 138/87
--- NOTE | 2017-04-13 18:01 | ED ---
Manuel Mckinney Angela, scribed for Dre Fink MD on 04/13/17 at 1147 . Abdominal Pain/Female - HPI Summary HPI Summary: This pt is a 27 y/o female presenting to [facility] [place] c/o left lower abd pain. Pt reports her pain radiates to her left sided back. She rates her abd pain 10/10 in severity. Pt rates her back pain 8/10 in severity. She states her pain is aggravated when sitting down and laying on left side. She notes associated symptoms of diarrhea. LMP: 2 weeks ago. - History of Current Complaint Chief Complaint: EDAbdPain Stated Complaint: LT FLANK PAIN Time Seen by Provider: 04/13/17 11:32 Hx Obtained From: Patient Hx Last Menstrual Period: 09/22/16 Onset/Duration: Lasting Hours, Still Present Timing: Hours Severity Currently: Severe Pain Intensity: 10 Pain Scale Used: 0-10 Numeric Location: Discrete At: LLQ Radiates: Yes Radiates to: Back Aggravating Factor(s): Other: - sitting down and laying on left side Alleviating Factor(s): Nothing Associated Signs and Symptoms: Positive: Diarrhea Allergies/Adverse Reactions: Allergies Allergy/AdvReac Type Severity Reaction Status Date / Time Hydrocodone [From Vicodin] Allergy Severe "MAKES MY Verified 03/18/17 10:24 SKIN FEEL WARM" Ibuprofen Allergy Severe Blisters, Verified 03/18/17 10:24 THROAT SWELLING Penicillins Allergy Severe Difficulty Verified 03/18/17 10:24 Breathing PMH/Surg Hx/FS Hx/Imm Hx Endocrine/Hematology History: Denies: Hx Anticoagulant Therapy, Hx Diabetes, Hx Thyroid Disease Cardiovascular History: Denies: Hx Congestive Heart Failure, Hx Deep Vein Thrombosis, Hx Hypertension , Hx Myocardial Infarction, Hx Pacemaker/ICD, Hx Peripheral Vascular Disease Respiratory History: Reports: Hx Asthma Denies: Hx Chronic Obstructive Pulmonary Disease (COPD), Hx Lung Cancer, Hx Pneumonia, Hx Pulmonary Embolism GI History: Reports: Other GI Disorders - hx bladder infection Denies: Hx Gall Bladder Disease, Hx Gastrointestinal Bleed, Hx Ulcer, Hx Urosepsis History: Reports: Hx Kidney Infection, Hx Kidney Stones, Hx Renal Disease - Her last kidney/bladder infection was about a year ago., Other Problems/ Disorders - UNABLE TO VOID TODAY Musculoskeletal History: Denies: Hx Arthritis, Hx Rheumatoid Arthritis, Hx Osteoporosis Sensory History: Denies: Hx Cataracts, Hx Contacts or Glasses, Hx Glaucoma, Hx Hearing Aid Opthamlomology History: Denies: Hx Cataracts, Hx Contacts or Glasses, Hx Glaucoma Neurological History: Reports: Hx Migraine Denies: Hx Dementia, Hx Headaches, Hx Seizures, Hx Transient Ischemic Attacks (TIA) Psychiatric History: Reports: Hx Bipolar Disorder - She takes depakote for this. , Other Psychiatric Issues/Disorders - bipolar Denies: Hx Anxiety, Hx Depression, Hx Panic Disorder, Hx Schizophrenia - Surgical History Surgery Procedure, Year, and Place: Tonsillectomy adenoidectomy. C section X4, Tubal Ligation - Immunization History Date of Tetanus Vaccine: Unknown Date of Influenza Vaccine: None Infectious Disease History: No Infectious Disease History: Reports: Hx of Known/Suspected MRSA - ? hx of leg wound Denies: Hx Clostridium Difficile, Hx Hepatitis, Hx Human Immunodeficiency Virus (HIV), Hx Shingles, Hx Tuberculosis, Hx Known/Suspected VRE, Hx Known/ Suspected VRSA, History Other Infectious Disease, Traveled Outside the [place] in Last 30 Days - Family History Known Family History: Positive: Cardiac Disease - mother had minor [place] at 46 y/o , Hypertension, Diabetes, Other - migraines mom had brain CA, depression, anxiety - Social History Alcohol Use: None Hx Substance Use: No Substance Use Type: Reports: None Substance Use Comment - Amount & Last Used: prenatals state illicit drug use history Hx Tobacco Use: Yes Smoking Status (MU): Current Every Day Smoker Type: Cigarettes Amount Used/How Often: 5-7 CIG/DAY Length of Time of Smoking/Using Tobacco: 17 years Have You Smoked in the Last Year: Yes Review of Systems Negative: Fever, Chills Eyes: Negative ENT: Negative Positive: Abdominal Pain, Diarrhea Skin: Negative Neurological: Negative All Other Systems Reviewed And Are Negative: Yes Physical Exam - Summary Physical Exam Summary: VITAL SIGNS: Reviewed. GENERAL: Patient is an obese female. Patient is not in any acute respiratory distress. HEAD AND FACE: Normocephalic and atraumatic. EYES: PERRLA, EOMI x 2, No injected conjunctiva. EARS: Hearing grossly intact. Ear canals and tympanic membranes are WNL. MOUTH: Oropharynx within normal limits. NECK: Supple, trachea is midline, no adenopathy, no JVD. CHEST: Symmetric, no tenderness at palpation LUNGS: Clear to auscultation bilaterally. No wheezing or crackles. CVS: RRR, S1 and S2 present, no murmurs or gallops appreciated. ABDOMEN: Soft. Pt has left lower quadrant tenderness. No signs of distention. Positive bowel sounds. No rebound no guarding, and no masses palpated. No abdominal bruit or pulsations. EXTREMITIES: FROM in all major joints, no edema, no cyanosis or clubbing. NEURO: Alert and oriented x 3. No acute neurological deficits. Speech is normal. SKIN: Dry and warm Triage Information Reviewed: Yes Vital Signs On Initial Exam: Initial Vitals Temp Pulse Resp BP Pulse Ox 98.2 F 75 20 118/80 97 04/13/17 11:25 04/13/17 11:25 04/13/17 11:25 04/13/17 11:25 04/13/17 11:25 Vital Signs Reviewed: Yes Diagnostics - Vital Signs Vital Signs Temp Pulse Resp BP Pulse Ox 04/13/17 11:25 98.2 F 75 20 118/80 97 - Laboratory Lab Results: Lab Results 04/13/17 04/13/17 04/13/17 Range/Units 11:45 11:45 11:45 WBC 10.4 (3.5-10.8) 10^3/ul RBC 4.70 (4.0-5.4) 10^6/ul Hgb 13.9 (12.0-16.0) g/dl Hct 41 (35-47) % MCV 88 (80-97) fL MCH 30 (27-31) pg MCHC 34 (31-36) g/dl RDW 13 (10.5-15) % Plt Count 191 (150-450) 10^3/ul MPV 11 H (7.4-10.4) um3 Neut % (Auto) 59.1 (38-83) % Lymph % (Auto) 31.0 (25-47) % [place] % (Auto) 6.1 (1-9) % Eos % (Auto) 3.4 (0-6) % Baso % (Auto) 0.4 (0-2) % Absolute Neuts (auto) 6.1 (1.5-7.7) 10^3/ul Absolute Lymphs (auto) 3.2 (1.0-4.8) 10^3/ul Absolute Monos (auto) 0.6 (0-0.8) 10^3/ul Absolute Eos (auto) 0.3 (0-0.6) 10^3/ul Absolute Basos (auto) 0 (0-0.2) 10^3/ul Absolute Nucleated RBC 0 10^3/ul Nucleated RBC % 0 Sodium 137 (133-145) mmol/L Potassium 3.4 L (3.5-5.0) mmol/L Chloride 106 (101-111) mmol/L Carbon Dioxide 25 (22-32) mmol/L Anion Gap 6 (2-11) mmol/L BUN 12 (6-24) mg/dL Creatinine 0.69 (0.51-0.95) mg/dL Est GFR ( Amer) 129.4 (>60) Est GFR (Non-Af Amer) 100.6 (>60) BUN/Creatinine Ratio 17.4 (8-20) Glucose 115 H (70-100) mg/dL Lactic Acid 1.3 (0.5-2.0) mmol/L Calcium 9.7 (8.6-10.3) mg/dL Magnesium 2.3 (1.9-2.7) mg/dL Total Bilirubin 0.50 (0.2-1.0) mg/dL AST 11 L (13-39) U/L ALT 10 (7-52) U/L Alkaline Phosphatase 86 (34-104) U/L Total Creatine Kinase 91 (10-223) U/L C-Reactive Protein 7.01 H (< 5.00) mg/L Total Protein 7.0 (6.4-8.9) g/dL Albumin 4.3 (3.2-5.2) g/dL Globulin 2.7 (2-4) g/dL Albumin/Globulin Ratio 1.6 (1-3) Amylase 21 L (29-103) U/L Lipase 18 (11.0-82.0) U/L Beta HCG, Quant < 0.60 mIU/mL Urine Color Urine Appearance Urine pH (5-9) Ur Specific [place] (1.010-1.030) Urine Protein (Negative) Urine Ketones (Negative) Urine Blood (Negative) Urine Nitrate (Negative) Urine Bilirubin (Negative) Urine Urobilinogen (Negative) Ur Leukocyte Esterase (Negative) Urine WBC (Auto) (Absent) Urine RBC (Auto) (Absent) Ur Squamous Epith Cells (Absent) Urine Bacteria (Absent) Urine Glucose (Negative) 04/13/17 Range/Units 11:45 WBC (3.5-10.8) 10^3/ul RBC (4.0-5.4) 10^6/ul Hgb (12.0-16.0) g/dl Hct (35-47) % MCV (80-97) fL MCH (27-31) pg MCHC (31-36) g/dl RDW (10.5-15) % Plt Count (150-450) 10^3/ul MPV (7.4-10.4) um3 Neut % (Auto) (38-83) % Lymph % (Auto) (25-47) % [place] % (Auto) (1-9) % Eos % (Auto) (0-6) % Baso % (Auto) (0-2) % Absolute Neuts (auto) (1.5-7.7) 10^3/ul Absolute Lymphs (auto) (1.0-4.8) 10^3/ul Absolute Monos (auto) (0-0.8) 10^3/ul Absolute Eos (auto) (0-0.6) 10^3/ul Absolute Basos (auto) (0-0.2) 10^3/ul Absolute Nucleated RBC 10^3/ul Nucleated RBC % Sodium (133-145) mmol/L Potassium (3.5-5.0) mmol/L Chloride (101-111) mmol/L Carbon Dioxide (22-32) mmol/L Anion Gap (2-11) mmol/L BUN (6-24) mg/dL Creatinine (0.51-0.95) mg/dL Est GFR ( Amer) (>60) Est GFR (Non-Af Amer) (>60) BUN/Creatinine Ratio (8-20) Glucose (70-100) mg/dL Lactic Acid (0.5-2.0) mmol/L Calcium (8.6-10.3) mg/dL Magnesium (1.9-2.7) mg/dL Total Bilirubin (0.2-1.0) mg/dL AST (13-39) U/L ALT (7-52) U/L Alkaline Phosphatase (34-104) U/L Total Creatine Kinase (10-223) U/L C-Reactive Protein (< 5.00) mg/L Total Protein (6.4-8.9) g/dL Albumin (3.2-5.2) g/dL Globulin (2-4) g/dL Albumin/Globulin Ratio (1-3) Amylase (29-103) U/L Lipase (11.0-82.0) U/L Beta HCG, Quant mIU/mL Urine Color Sun Urine Appearance Cloudy Urine pH 5.0 (5-9) Ur Specific [place] 1.032 H (1.010-1.030) Urine Protein Negative (Negative) Urine Ketones Trace H (Negative) Urine Blood Negative (Negative) Urine Nitrate Negative (Negative) Urine Bilirubin Negative (Negative) Urine Urobilinogen Negative (Negative) Ur Leukocyte Esterase Trace H (Negative) Urine WBC (Auto) Trace(0-5/hpf) (Absent) Urine RBC (Auto) 2+(6-10/hpf) H (Absent) Ur Squamous Epith Cells Present H (Absent) Urine Bacteria Absent (Absent) Urine Glucose Negative (Negative) Result Diagrams: 04/13/17 11:45 04/13/17 11:45 Lab Statement: Any lab studies that have been ordered have been reviewed, and results considered in the medical decision making process. - CT Abdomen/Pelvis CT CT Interpretation: Positive (See Comments) - IMPRESSION: Questionable inflammatory wall thickening of the terminal ileum and more definite inflammatory wall thickening involving the distal colon from descending colon to the sigmoid colon. Infectious or inflammatory etiologies should be considered. The presence of "skip lesions" are associated with Crohn's disease. Dr. Fink has reviewed this radiology report. CT Interpretation Completed By: Radiologist - EKG 11:48 Cardiac Rate: NL EKG Rhythm: Sinus Rhythm - at 74 bpm EKG Interpretation: No ST elevation EKG Comparison: No Significant Change - similar to prior EKG on 08/22/16. Re-Evaluation - Re-Evaluation First Eval Re-Evaluation Time: 15:37 Comment: I discussed CT results with the pt. Abdominal Pain Fem Course/Dx - Course Course Of Treatment: This pt is a 27 y/o female presenting to [facility] c/o left lower abd pain. Pt reports her pain radiates to her left sided back. She rates her abd pain 10/10 in severity. Pt rates her back pain 8/10 in severity. She states her pain is aggravated when sitting down and laying on left side. She notes associated symptoms of diarrhea. LMP: 2 weeks ago. Test results without any significant abnormalities except for potassium of 3.4, CRP of 7.01. Urinalysis is contaminated, therefore we will send for urine cultures. Abdomen/ Pelvis CT shows questionable inflammatory wall thickening of the terminal ileum and more definite inflammatory wall thickening involving the distal colon from descending colon to the sigmoid colon. Infectious or inflammatory etiologies should be considered. The presence of "skip lesions" are associated with Crohn' s disease. Since this CT shows skip lesions which are seen in Crohns disease and the pt has no diagnosis of Crohns, I gave her pain medications and a GI referral. Pt feels better she will be discharged to home with follow up from GI. Pt understands and agrees. - Diagnoses Differential Diagnosis: Positive: Appendicitis, Bowel Obstruction, Constipation , Diverticulitis, Renal Colic, Urinary Tract Infection Provider Diagnoses: Abdominal pain Discharge - Discharge Plan Condition: Stable Disposition: HOME Prescriptions: oxyCODONE TAB* [Roxycodone TAB 5 mg*] 5 mg PO Q6H PRN #10 tab MDD 4 PRN Reason: Pain Patient Education Materials: Abdominal Pain (ED) Forms: *Work Release Referrals: Vincent Hirsch MD [Medical Doctor] - 3 Days No Primary Care Phys,NOPCP [Primary Care Provider] - Temo Still MD [Medical Doctor] - 3 Days Additional Instructions: Please follow up with Dr. Hirsch or Dr. Still, gastroenterologists. RETURN TO THE ED FOR ANY WORSENING SYMPTOMS. The documentation as recorded by the Manuel chowdary Angela accurately reflects the service I personally performed and the decisions made by me, Dre Fink MD.
== END 2017-04-13 16:01 | disposition home or self-care (01) ==
LOC: ED 11:22
DX: R10.32 Left lower quadrant pain (principal); K63.89 Other specified diseases of intestine; F17.210 Nicotine dependence, cigarettes, uncomplicated; Z88.6 Allergy status to analgesic agent; Z88.0 Allergy status to penicillin; Z88.5 Allergy status to narcotic agent
CPT/HCPCS: 36415; 74177; 80053; 81003; 81015; 82150; 82550; 83605; 83690; 83735; 84702; 85025; 86140; 87086; 93005; 99282; A9270-GY; Q9967

== ENCOUNTER 2017-04-15 12:39 | Emergency (ER) | payer OTHER ==
[2017-04-15 12:57] VITALS: BP 119/76
--- NOTE | 2017-04-15 13:54 | ED ---
Abdominal Pain/Female - HPI Summary HPI Summary: 27 female presents to ED with complaints of worsening left lower quadrant pain and diarrhea. Patient states she was seen in ED on Thursday night, 2 days ago, and told to go to GI, has an appointment this week. Patient was diagnosed with possible crohn's due to inflammatory changes noted, requiring further evaluation by GI specialist. States she was given pain medication however was unable to fill them as she could not figure out where the script was sent. Patient states the pain is worse and greater than a 10/10. Does not radiate. Denies noted blood in stool. no urinary complaints. No PMHx. No anticoagulants use, fever/chills. - History of Current Complaint Chief Complaint: EDAbdPain Stated Complaint: ABD PAIN, Time Seen by Provider: 04/15/17 13:44 Hx Obtained From: Patient Hx Last Menstrual Period: 09/22/16 ?: No Onset/Duration: Gradual Onset, Lasting Weeks, Still Present, Worse Since Timing: Constant Severity Initially: Moderate Severity Currently: Severe Pain Intensity: 10 Pain Scale Used: 0-10 Numeric Location: Discrete At: LLQ Radiates: No Character: Sharp, Dull Aggravating Factor(s): Nothing Alleviating Factor(s): Nothing Associated Signs and Symptoms: Positive: Diarrhea Allergies/Adverse Reactions: Allergies Allergy/AdvReac Type Severity Reaction Status Date / Time MS Hydrocodone [From Vicodin] Allergy Severe "MAKES MY Verified 03/18/17 10:24 SKIN FEEL WARM" MS Ibuprofen [Ibuprofen] Allergy Severe Blisters, Verified 03/18/17 10:24 THROAT SWELLING MS Penicillins [Penicillins] Allergy Severe Difficulty Verified 03/18/17 10:24 Breathing PMH/Surg Hx/FS Hx/Imm Hx Endocrine/Hematology History: Denies: Hx Anticoagulant Therapy, Hx Diabetes, Hx Thyroid Disease Cardiovascular History: Denies: Hx Congestive Heart Failure, Hx Deep Vein Thrombosis, Hx Hypertension , Hx Myocardial Infarction, Hx Pacemaker/ICD, Hx Peripheral Vascular Disease Respiratory History: Reports: Hx Asthma Denies: Hx Chronic Obstructive Pulmonary Disease (COPD), Hx Lung Cancer, Hx Pneumonia, Hx Pulmonary Embolism GI History: Reports: Other GI Disorders - hx bladder infection Denies: Hx Gall Bladder Disease, Hx Gastrointestinal Bleed, Hx Ulcer, Hx Urosepsis History: Reports: Hx Kidney Infection, Hx Kidney Stones, Hx Renal Disease - Her last kidney/bladder infection was about a year ago., Other Problems/ Disorders - UNABLE TO VOID TODAY Musculoskeletal History: Denies: Hx Arthritis, Hx Rheumatoid Arthritis, Hx Osteoporosis Sensory History: Denies: Hx Cataracts, Hx Contacts or Glasses, Hx Glaucoma, Hx Hearing Aid Opthamlomology History: Denies: Hx Cataracts, Hx Contacts or Glasses, Hx Glaucoma Neurological History: Reports: Hx Migraine Denies: Hx Dementia, Hx Headaches, Hx Seizures, Hx Transient Ischemic Attacks (TIA) Psychiatric History: Reports: Hx Bipolar Disorder - She takes depakote for this. , Other Psychiatric Issues/Disorders - bipolar Denies: Hx Anxiety, Hx Depression, Hx Panic Disorder, Hx Schizophrenia - Surgical History Surgery Procedure, Year, and Place: Tonsillectomy adenoidectomy. C section X4, Tubal Ligation - Immunization History Date of Tetanus Vaccine: Unknown Date of Influenza Vaccine: None Immunizations Up to Date: Yes Infectious Disease History: No Infectious Disease History: Reports: Hx of Known/Suspected MRSA - ? hx of leg wound Denies: Hx Clostridium Difficile, Hx Hepatitis, Hx Human Immunodeficiency Virus (HIV), Hx Shingles, Hx Tuberculosis, Hx Known/Suspected VRE, Hx Known/ Suspected VRSA, History Other Infectious Disease, Traveled Outside the [place] in Last 30 Days - Family History Known Family History: Positive: Cardiac Disease - mother had minor [place] at 46 y/o , Hypertension, Diabetes, Other - migraines mom had brain CA, depression, anxiety - Social History Alcohol Use: None Hx Substance Use: No Substance Use Type: Reports: None Substance Use Comment - Amount & Last Used: prenatals state illicit drug use history Hx Tobacco Use: Yes Smoking Status (MU): Current Every Day Smoker Type: Cigarettes Amount Used/How Often: 5-7 CIG/DAY Length of Time of Smoking/Using Tobacco: 17 years Have You Smoked in the Last Year: Yes Review of Systems Constitutional: Negative Cardiovascular: Negative Respiratory: Negative Positive: Abdominal Pain, Diarrhea Genitourinary: Negative Musculoskeletal: Negative All Other Systems Reviewed And Are Negative: Yes Physical Exam Triage Information Reviewed: Yes Vital Signs On Initial Exam: Initial Vitals Temp Pulse Resp BP Pulse Ox 98 F 87 17 119/76 97 04/15/17 12:53 04/15/17 12:53 04/15/17 12:53 04/15/17 12:53 04/15/17 12:53 Vital Signs Reviewed: Yes Appearance: Positive: Well-Appearing, No Pain Distress, Well-Nourished Skin: Positive: Warm, Skin Color Reflects Adequate Perfusion, Dry. Negative: Cold, Cyanosis @, Jaundiced, Pale, Erythema @ Head/Face: Positive: Normal Head/Face Inspection Eyes: Positive: Conjunctiva Clear ENT: Positive: Pharyngeal erythema Neck: Positive: Supple, Nontender, No Lymphadenopathy Respiratory/Lung Sounds: Positive: Clear to Auscultation, Breath Sounds Present. Negative: Rales, Rhonchi, Wheezes Cardiovascular: Positive: Normal, RRR, Pulses are Symmetrical in both Upper and Lower Extremities. Negative: Murmur, Rub Abdomen Description: Positive: No Organomegaly, Soft, Guarding, Other: - tender to palpation of LLQ and lower abdomen. Negative: Bruit, CVA Tenderness (R), CVA Tenderness (L), Distended, McBurney's Point Tenderness Bowel Sounds: Positive: Present Musculoskeletal: Positive: Normal Neurological: Positive: Normal, Sensory/Motor Intact, Alert, Oriented to Person Place, Time Diagnostics - Vital Signs Vital Signs Temp Pulse Resp BP Pulse Ox 04/15/17 12:53 98 F 87 17 119/76 97 - Laboratory Result Diagrams: 04/15/17 15:23 04/15/17 15:23 Lab Statement: Any lab studies that have been ordered have been reviewed, and results considered in the medical decision making process. Re-Evaluation - Re-Evaluation First Eval Re-Evaluation Time: 15:40 Change: Improved - had some relief from abdominal pain able to walk around and move without significant discomfort Abdominal Pain Fem Course/Dx - Course Course Of Treatment: basic labs obtained and without change since previous visit. no signs of infection or anemia. no repeat imaging obtained due to paitent just having CT on thursday with acute findings requiring further evaluation by GI specialist. given pain management while in ED. has script at [facility] pharmacy from visit 2 days ago that has not yet been picked up, instructed to take for pain. fluids and bland diet. aware of worsening signs and symptoms to watch out for. patient wanted to leave before giving urine sample because "her ride was here". - Diagnoses Differential Diagnosis: Positive: Other - abdominal pain, Crohn's, LLQ pain Provider Diagnoses: Abdominal pain Discharge - Discharge Plan Condition: Stable Disposition: HOME Patient Education Materials: Acute Abdominal Pain (ED) Referrals: No Primary Care Phys,NOPCP [Primary Care Provider] - Temo Still MD [Medical Doctor] - Additional Instructions: Continue pain medication as directed. Stick to a bland diet, increase fluid intake. You need to follow up with GI tomorrow as scheduled for further imaging and evaluation. Any new or worsening symptoms please seek medical attention.
[2017-04-15] MEDS ORDERED: Acetaminophen TAB* 325 MG PO ONE (13:55)
[2017-04-15] MEDS ORDERED: oxyCODONE/Acetamin 5/325 MG* TAB PO ONE (15:07)
[2017-04-15 15:34] LABS: ABS Basophils 0 10^3/ul (0-0.2); ABS Eosinophils 0.3 10^3/ul (0-0.6); ABS Lymphocytes 3.3 10^3/ul (1.0-4.8); ABS Monocytes 0.5 10^3/ul (0-0.8); ABS Neutrophils 6.3 10^3/ul (1.5-7.7); ABS Nucleated RBC 0 10^3/ul; Eosinophil % 2.8 % (0-6); Hematocrit 42 % (35-47); Hemoglobin 14.2 g/dl (12.0-16.0); Lymphocyte % 31.5 % (25-47); Mean Corpuscular HGB Conc 33 g/dl (31-36); Mean Corpuscular Hemoglobin 30 pg (27-31); Mean Corpuscular Volume 89 fL (80-97); Mean Platelet Volume 11 um3 (7.4-10.4); Nucleated Red Blood Cells % 0.1; Platelet Count 180 10^3/ul (150-450); Red Blood Count 4.78 10^6/ul (4.0-5.4); Red Cell Distribution Width 13 % (10.5-15); White Blood Count 10.5 10^3/ul (3.5-10.8)
[2017-04-15 15:53] LABS: EGFR Non-African American 122.9 (>60)
== END 2017-04-15 16:00 | disposition home or self-care (01) ==
LOC: ED 12:39
DX: R10.32 Left lower quadrant pain (principal); R19.7 Diarrhea, unspecified; F17.210 Nicotine dependence, cigarettes, uncomplicated
CPT/HCPCS: 36415; 80053; 83605; 84702; 85025; 99282; A9270-GY

== ENCOUNTER 2017-04-20 12:29 | Emergency (ER) | payer OTHER ==
[2017-04-20 13:21] VITALS: BP 135/77
--- NOTE | 2017-04-20 13:41 | UC ---
Abdominal Pain Female HPI - HPI Summary HPI Summary: 27 yo female with tentative diagnosis of Crohn's disease presents with worsening abd pain/fever/chill/weakness/nausea/vomiting states she has lost about 30 pounds in past month seen at gastroenterology assoc needs to provide them with stool samples and has follow up appt no relief with percocet now with RLQ pain - History of Current Complaint Chief Complaint: UCAbdominalPain Stated Complaint: ABDOMINAL PAIN Hx Obtained From: Patient Hx Last Menstrual Period: 04/13/17 Onset/Duration: Gradual Onset, Lasting Weeks Pain Intensity: 10 Pain Scale Used: 0-10 Numeric Location: Discrete At: LLQ Radiates: Yes Radiates to: Back Character: Aching Aggravating Factor(s): Food, Movement Associated Signs and Symptoms: Positive: Fever, Dizzy, Nausea, Vomiting, Diarrhea Allergies/Adverse Reactions: Allergies Allergy/AdvReac Type Severity Reaction Status Date / Time acetaminophen [From Vicodin] Allergy Rash Verified 04/20/17 13:13 hydrocodone [From Vicodin] Allergy Rash Verified 04/20/17 13:13 ibuprofen Allergy Swelling Verified 04/20/17 13:13 Of Face,Lips,& Throat Penicillins Allergy Swelling Verified 04/20/17 13:13 Of Face,Lips,& Throat PMH/Surg Hx/FS Hx/Imm Hx Previously Healthy: Yes Other History Of: Negative For: HIV, Hepatitis B, Hepatitis C, Anticoagulant Therapy - Surgical History Surgical History: Yes Surgery Procedure, Year, and Place: Tonsillectomy adenoidectomy. C section X4, Tubal Ligation - Family History Known Family History: Positive: Cardiac Disease - mother had minor [place] at 46 y/o , Hypertension, Diabetes, Other - migraines mom had brain CA, depression, anxiety...mom has LUPUS - Social History Alcohol Use: None Substance Use Type: None Substance Use Comment - Amount & Last Used: prenatals state illicit drug use history Smoking Status (MU): Current Every Day Smoker Type: Cigarettes Amount Used/How Often: 5-7 CIG/DAY Length of Time of Smoking/Using Tobacco: 17 years Have You Smoked in the Last Year: Yes Household Exposure Type: Cigarettes - Immunization History Most Recent Influenza Vaccination: declined for this year Most Recent Tetanus Shot: UTD Most Recent Pneumonia Vaccination: none Review of Systems Constitutional: Fever - pina, Chills, Fatigue Skin: Negative Eyes: Negative ENT: Negative Respiratory: Negative Cardiovascular: Negative Gastrointestinal: Vomiting, Diarrhea, Nausea Genitourinary: Negative Motor: Negative Neurovascular: Negative Musculoskeletal: Negative Neurological: Negative Psychological: Negative Is Patient Immunocompromised?: No All Other Systems Reviewed And Are Negative: Yes Physical Exam Triage Information Reviewed: Yes Appearance: Well-Appearing, No Pain Distress, Well-Nourished Vital Signs: Initial Vital Signs Temp 99 F 04/20/17 13:14 Pulse 86 04/20/17 13:14 Resp 20 04/20/17 13:14 BP 135/77 04/20/17 13:14 Pulse Ox 99 04/20/17 13:14 Vital Signs Reviewed: Yes Eyes: Positive: Conjunctiva Clear ENT: Positive: Hearing grossly normal. Negative: Nasal drainage, TMs normal, Sinus tenderness, Uvula midline Neck: Positive: Supple, Nontender, No Lymphadenopathy Respiratory: Positive: Lungs clear, Normal breath sounds, No respiratory distress Cardiovascular: Positive: RRR, No Murmur Abdomen Description: Negative: Nontender - tender LLQ Bowel Sounds: Positive: Present Musculoskeletal: Positive: ROM Intact, No Edema Neurological: Positive: Alert Psychological Exam: Normal Skin Exam: Normal Abd Pain Female Course/Dx - Course Course Of Treatment: d/w Dr. Fink. to [facility] ED via EMS - Differential Dx/Diagnosis Provider Diagnoses: abdominal pain. probable Crohn's Discharge - Discharge Plan Condition: Stable Disposition: [facility] Referrals: No Primary Care Phys,NOPCP [Primary Care Provider] -
[2017-04-20] MEDS ORDERED: Ondansetron INJ* 2 MG/ML VIAL IV ONE (13:52)
[2017-04-20] MEDS ORDERED: NS 0.9% 1000 ML* 1,000 ML BOLUS ONE (13:53)
== END 2017-04-20 14:37 | disposition short-term general hospital (02) ==
LOC: UCEAST 12:29
DX: R10.31 Right lower quadrant pain (principal); R10.32 Left lower quadrant pain; R50.9 Fever, unspecified; R53.1 Weakness; R11.2 Nausea with vomiting, unspecified; R42 Dizziness and giddiness; R19.7 Diarrhea, unspecified; R53.83 Other fatigue; Z32.02 Encounter for pregnancy test, result negative; Z88.6 Allergy status to analgesic agent; Z88.5 Allergy status to narcotic agent; Z88.0 Allergy status to penicillin; F17.210 Nicotine dependence, cigarettes, uncomplicated
CPT/HCPCS: 81003; 81025; 96360; 96374; 99213; G0463; J2405

== ENCOUNTER → 2017-04-20 14:56 | Emergency (ER) | payer OTHER ==
[~2017-04-20 14:56] MED LIST changes: -Cephalexin CAP* 500 MG PO ONE; -Ketorolac INJ* 30 MG/ML 1 ML VIAL IV PUSH ONE; -Metoclopramide IV* 5 MG/ML 2 ML VIAL IV SLOW PU ONE; +Morphine INJ* 4 MG/ML 1 ML CARPUJECT IV ONE; -Ondansetron INJ* 2 MG/ML VIAL IV ONE
[2017-04-20 15:25] LABS: ABS Basophils 0.1 10^3/ul (0-0.2); ABS Eosinophils 0.5 10^3/ul (0-0.6); ABS Lymphocytes 3.8 10^3/ul (1.0-4.8); ABS Monocytes 0.6 10^3/ul (0-0.8); ABS Neutrophils 6.1 10^3/ul (1.5-7.7); ABS Nucleated RBC 0 10^3/ul; Eosinophil % 4.2 % (0-6); Hematocrit 42 % (35-47); Hemoglobin 14.2 g/dl (12.0-16.0); Lymphocyte % 34.5 % (25-47); Mean Corpuscular HGB Conc 34 g/dl (31-36); Mean Corpuscular Hemoglobin 30 pg (27-31); Mean Corpuscular Volume 88 fL (80-97); Mean Platelet Volume 11 um3 (7.4-10.4); Nucleated Red Blood Cells % 0; Platelet Count 168 10^3/ul (150-450); Red Blood Count 4.75 10^6/ul (4.0-5.4); Red Cell Distribution Width 13 % (10.5-15); White Blood Count 11.1 10^3/ul (3.5-10.8)
[2017-04-20 15:44] LABS: EGFR Non-African American 120.5 (>60)
--- NOTE | 2017-04-20 16:40 | RAD ---
HISTORY: Abdominal pain COMPARISONS: CT dated April 13, 2012 VIEWS: Frontal views of the abdomen. FINDINGS: BOWEL: There is a nonspecific bowel gas pattern, with nondilated small bowel gas noted. There is minimal stool within the colon. CALCULI: There are no abnormal calculi. BONES AND SOFT TISSUES: There are no osseous abnormalities. OTHER FINDINGS: The lung bases are clear. There is no subphrenic gas. IMPRESSION: NONSPECIFIC BOWEL GAS PATTERN.
[2017-04-20 16:59] LABS: Urine Appearance Clear; Urine Blood Negative (Negative); Urine Color Yellow; Urine Ketones Negative (Negative); Urine Protein Negative (Negative); Urine Specific Gravity 1.026 (1.010-1.030); Urine Urobilinogen Negative (Negative)
--- NOTE | 2017-04-21 09:37 | ED ---
Manuel Mckinney Angela, scribed for Dre Fink MD on 04/20/17 at 1512 . Abdominal Pain/Female - HPI Summary HPI Summary: This pt is a 27 y/o female presenting to [facility] via EMS from [facility] c/o worsening left sided abdominal pain for the past week. Pt reports she was seen in the ED 1 week ago and given a referral to GI after seeing skip lesions in her CT abd/pel. Pt states she has a tentative diagnosis of Crohn's disease. Pt saw GI and was given a cup to provide a stool sample to bring back this , 04/23/17. She comes in today for worsening abd pain, nausea, vomiting, and diarrhea. Pt describes diarrhea as in between soft and liquidy. She denies bloody stools. Pt additionally reports chills and lightheadedness. - History of Current Complaint Stated Complaint: ABD PAIN-CC TRANSFER Time Seen by Provider: 04/20/17 15:05 Hx Obtained From: Patient Hx Last Menstrual Period: 04/13/17 Onset/Duration: Lasting Days, Still Present Timing: Days Severity Currently: Severe Pain Intensity: 10 Pain Scale Used: 0-10 Numeric Location: Other - left sided abd pain Radiates: No Aggravating Factor(s): Nothing Alleviating Factor(s): Nothing Associated Signs and Symptoms: Positive: Nausea, Vomiting, Diarrhea, Other: - chills, lightheadedness. Negative: Blood in Stool Allergies/Adverse Reactions: Allergies Allergy/AdvReac Type Severity Reaction Status Date / Time acetaminophen [From Vicodin] Allergy Rash Verified 04/20/17 13:13 hydrocodone [From Vicodin] Allergy Rash Verified 04/20/17 13:13 ibuprofen Allergy Swelling Verified 04/20/17 13:13 Of Face,Lips,& Throat Penicillins Allergy Swelling Verified 04/20/17 13:13 Of Face,Lips,& Throat PMH/Surg Hx/FS Hx/Imm Hx Endocrine/Hematology History: Denies: Hx Anticoagulant Therapy, Hx Diabetes, Hx Thyroid Disease Cardiovascular History: Denies: Hx Congestive Heart Failure, Hx Deep Vein Thrombosis, Hx Hypertension , Hx Myocardial Infarction, Hx Pacemaker/ICD, Hx Peripheral Vascular Disease Respiratory History: Reports: Hx Asthma Denies: Hx Chronic Obstructive Pulmonary Disease (COPD), Hx Lung Cancer, Hx Pneumonia, Hx Pulmonary Embolism GI History: Reports: Other GI Disorders - hx bladder infection Denies: Hx Gall Bladder Disease, Hx Gastrointestinal Bleed, Hx Ulcer, Hx Urosepsis History: Reports: Hx Kidney Infection, Hx Kidney Stones, Hx Renal Disease - Her last kidney/bladder infection was about a year ago., Other Problems/ Disorders - UNABLE TO VOID TODAY Musculoskeletal History: Denies: Hx Arthritis, Hx Rheumatoid Arthritis, Hx Osteoporosis Sensory History: Denies: Hx Cataracts, Hx Contacts or Glasses, Hx Glaucoma, Hx Hearing Aid Opthamlomology History: Denies: Hx Cataracts, Hx Contacts or Glasses, Hx Glaucoma Neurological History: Reports: Hx Migraine Denies: Hx Dementia, Hx Headaches, Hx Seizures, Hx Transient Ischemic Attacks (TIA) Psychiatric History: Reports: Hx Bipolar Disorder - She takes depakote for this. , Other Psychiatric Issues/Disorders - bipolar Denies: Hx Anxiety, Hx Depression, Hx Panic Disorder, Hx Schizophrenia - Surgical History Surgery Procedure, Year, and Place: Tonsillectomy adenoidectomy. C section X4, Tubal Ligation - Immunization History Date of Tetanus Vaccine: Unknown Date of Influenza Vaccine: None Infectious Disease History: No Infectious Disease History: Reports: Hx of Known/Suspected MRSA - ? hx of leg wound Denies: Hx Clostridium Difficile, Hx Hepatitis, Hx Human Immunodeficiency Virus (HIV), Hx Shingles, Hx Tuberculosis, Hx Known/Suspected VRE, Hx Known/ Suspected VRSA, History Other Infectious Disease, Traveled Outside the [place] in Last 30 Days - Family History Known Family History: Positive: Cardiac Disease - mother had minor [place] at 46 y/o , Hypertension, Diabetes, Other - migraines mom had brain CA, depression, anxiety...mom has LUPUS - Social History Alcohol Use: None Hx Substance Use: No Substance Use Type: Reports: None Substance Use Comment - Amount & Last Used: prenatals state illicit drug use history Hx Tobacco Use: Yes Smoking Status (MU): Current Every Day Smoker Type: Cigarettes Amount Used/How Often: 5-7 CIG/DAY Length of Time of Smoking/Using Tobacco: 17 years Have You Smoked in the Last Year: Yes Review of Systems Positive: Chills. Negative: Fever Positive: Abdominal Pain, Vomiting, Diarrhea, Nausea Neurological: Other - lightheadedness All Other Systems Reviewed And Are Negative: Yes Physical Exam - Summary Physical Exam Summary: VITAL SIGNS: Reviewed. GENERAL: Patient is a well-developed and nourished female who is lying comfortable in the stretcher. Patient is not in any acute respiratory distress. HEAD AND FACE: Normocephalic and atraumatic. EYES: PERRLA, EOMI x 2, No injected conjunctiva. EARS: Hearing grossly intact. Ear canals and tympanic membranes are WNL. MOUTH: Oropharynx within normal limits. NECK: Supple, trachea is midline, no adenopathy, no JVD. CHEST: Symmetric, no tenderness at palpation LUNGS: Clear to auscultation bilaterally. No wheezing or crackles. CVS: RRR, S1 and S2 present, no murmurs or gallops appreciated. ABDOMEN: Soft. Tenderness in the left upper and lower quadrants. No signs of distention. Increased bowel sounds. No rebound no guarding, and no masses palpated. No abdominal bruit or pulsations. EXTREMITIES: FROM in all major joints, no edema, no cyanosis or clubbing. NEURO: Alert and oriented x 3. No acute neurological deficits. Speech is normal. SKIN: Dry and warm Triage Information Reviewed: Yes Vital Signs On Initial Exam: Initial Vitals Temp Pulse Resp BP Pulse Ox 98.6 F 90 16 157/104 96 04/20/17 15:02 04/20/17 15:02 04/20/17 15:02 04/20/17 15:02 04/20/17 15:02 Vital Signs Reviewed: Yes Diagnostics - Vital Signs Vital Signs Temp Pulse Resp BP Pulse Ox 04/20/17 15:02 98.6 F 90 16 157/104 96 - Laboratory Result Diagrams: 04/20/17 14:00 04/20/17 15:47 Lab Statement: Any lab studies that have been ordered have been reviewed, and results considered in the medical decision making process. - Radiology Abdomen XR Xray Interpretation: Positive (See Comments) - IMPRESSION: Nonspecific bowel gas pattern. Dr. Fink has reviewed this radiology report. Radiology Interpretation Completed By: Radiologist Re-Evaluation - Re-Evaluation First Eval Re-Evaluation Time: 16:53 Comment: I reviewed test and XR results with the pt. Abdominal Pain Fem Course/Dx - Course Course Of Treatment: This pt is a 27 y/o female presenting to [facility] via EMS from [facility] c/o worsening left sided abdominal pain for the past week. Pt reports she was seen in the ED 1 week ago and given a referral to GI after seeing skip lesions in her CT abd/pel. Pt states she has a tentative diagnosis of Crohn's disease. Pt saw GI and was given a cup to provide a stool sample to bring back this , 04/23/17. She comes in today for worsening abd pain, nausea, vomiting, and diarrhea. Pt describes diarrhea as in between soft and liquidy. She denies bloody stools. Pt additionally reports chills and lightheadedness. Test results without any significant abnormalities. Pt was given IV fluids and morphine for the pain. Abdomen XR shows nonspecific bowel gas pattern. I discussed the case with Dr. Still, GI doctor for the pt, and he does not think the pt has Crohns however he would like the pt to follow up with him on (04/23/17/) in his office. Therefore, since the pts symptoms have improved she will be discharged to home with follow up from PCP. The pt requested to be admitted, however since the symptoms have improved and she has no other symptoms she will be discharged home. The pt does not seem very happy and she would like another GI doctor with whom to follow up. - Diagnoses Provider Diagnoses: Abdominal pain - Provider Notifications Discussed Care Of Patient With: Temo Still Time Discussed With Above Provider: 16:49 Instructed by Provider To: Other - I discussed pt care wtih Dr. Still, GI, who reports no pain medications and for the pt to follow up with her PCP. Discharge - Discharge Plan Condition: Stable Disposition: HOME Patient Education Materials: Abdominal Pain (ED) Referrals: [facility] [place] [facility]ERR[facility] [Outside] - 1 Week No Primary Care Phys,NOPCP [Primary Care Provider] - Additional Instructions: Please follow up with your primary care provider. RETURN TO THE ED FOR ANY WORSENING SYMPTOMS. The documentation as recorded by the Manuel chowdary Angela accurately reflects the service I personally performed and the decisions made by me, Dre Fink MD.
[2017-04-22 07:14] VITALS: BP 00/0
== END | disposition home or self-care (01) ==
LOC: ED 14:56
DX: R10.9 Unspecified abdominal pain (principal); F17.210 Nicotine dependence, cigarettes, uncomplicated
CPT/HCPCS: 36415; 74019; 80053; 81003; 83605; 83690; 85025; 86140; 99282; J2270

== ENCOUNTER → 2017-09-09 18:39 | Emergency (ER) | payer OTHER ==
--- NOTE | 2017-09-09 20:01 | RAD ---
INDICATION: Cough. Congestion. COMPARISON: August 21, 2016 TECHNIQUE: PA and lateral dual-energy views were obtained. FINDINGS: Bones/Soft Tissues: There are no acute bony findings. Cardiomediastinal: The cardiomediastinal silhouette is normal. Lungs: There are no infiltrates. Pleura: There are no pleural effusions. Other: None IMPRESSION: NORMAL CHEST.
[2017-09-09 20:33] VITALS: BP 128/73
--- NOTE | 2017-09-10 07:00 | ED ---
Marshal Mckinney Jade, scribed for Brigido Estevez MD on 09/09/17 at 2035 . HPI Febrile Illness - HPI Summary HPI Summary: Pt is a 27 y/o female who presents to the ED c/o febrile illness. She states her symptoms started yesterday, and include intermittent fever, chills, chest tightness, sore throat, post-nasal drip, and head congestion. She also has had a right tooth infection with pain radiating to her right ear. Pt is worried about bronchitis, since she has both a PMHx and FHx of chronic bronchitis. Pt is a smoker. She is not on medications. - History of Current Complaint Chief Complaint: EDUpperRespComplaint Hx Obtained From: Patient Hx Last Menstrual Period: 04/13/17 Onset/Duration: Started Days Ago - 1, Still Present Timing: Constant Current Severity: Severe Pain Intensity: 10 Pain Scale Used: 0-10 Numeric Aggravating Factors: Nothing Alleviating Factors: Nothing Associated Signs and Symptoms: Chills, Sore Throat - Allergy/Home Medications Allergies/Adverse Reactions: Allergies Allergy/AdvReac Type Severity Reaction Status Date / Time acetaminophen [From Vicodin] Allergy Rash Verified 09/09/17 19:13 hydrocodone [From Vicodin] Allergy Rash Verified 09/09/17 19:13 ibuprofen Allergy Swelling Verified 09/09/17 19:13 Of Face,Lips,& Throat Penicillins Allergy Swelling Verified 09/09/17 19:13 Of Face,Lips,& Throat PMH/Surg Hx/FS Hx/Imm Hx Endocrine/Hematology History: Denies: Hx Anticoagulant Therapy, Hx Diabetes, Hx Thyroid Disease Cardiovascular History: Denies: Hx Congestive Heart Failure, Hx Deep Vein Thrombosis, Hx Hypertension , Hx Myocardial Infarction, Hx Pacemaker/ICD, Hx Peripheral Vascular Disease Respiratory History: Reports: Hx Asthma, Hx Chronic Bronchitis Denies: Hx Chronic Obstructive Pulmonary Disease (COPD), Hx Lung Cancer, Hx Pneumonia, Hx Pulmonary Embolism GI History: Reports: Other GI Disorders - hx bladder infection Denies: Hx Gall Bladder Disease, Hx Gastrointestinal Bleed, Hx Ulcer, Hx Urosepsis History: Reports: Hx Kidney Infection, Hx Kidney Stones, Hx Renal Disease - Her last kidney/bladder infection was about a year ago., Other Problems/ Disorders - UNABLE TO VOID TODAY Musculoskeletal History: Denies: Hx Arthritis, Hx Rheumatoid Arthritis, Hx Osteoporosis Sensory History: Denies: Hx Cataracts, Hx Contacts or Glasses, Hx Glaucoma, Hx Hearing Aid Opthamlomology History: Denies: Hx Cataracts, Hx Contacts or Glasses, Hx Glaucoma Neurological History: Reports: Hx Migraine Denies: Hx Dementia, Hx Headaches, Hx Seizures, Hx Transient Ischemic Attacks (TIA) Psychiatric History: Reports: Hx Bipolar Disorder - She takes depakote for this. Denies: Hx Anxiety, Hx Depression, Hx Panic Disorder, Hx Schizophrenia - Surgical History Surgery Procedure, Year, and Place: Tonsillectomy adenoidectomy. C section X4, Tubal Ligation - Immunization History Date of Tetanus Vaccine: Unknown Date of Influenza Vaccine: None Infectious Disease History: No Infectious Disease History: Reports: Hx of Known/Suspected MRSA - ? hx of leg wound Denies: Hx Clostridium Difficile, Hx Hepatitis, Hx Human Immunodeficiency Virus (HIV), Hx Shingles, Hx Tuberculosis, Hx Known/Suspected VRE, Hx Known/ Suspected VRSA, History Other Infectious Disease, Traveled Outside the [place] in Last 30 Days - Family History Known Family History: Positive: Cardiac Disease - mother had minor CT at 46 y/o , Hypertension, Diabetes, Respiratory Disease - Chronic bronchitis, Other - migraines mom had brain CA, depression, anxiety...mom has LUPUS - Social History Occupation: Unemployed Alcohol Use: None Hx Substance Use: No Substance Use Type: Reports: None Substance Use Comment - Amount & Last Used: prenatals state illicit drug use history Hx Tobacco Use: Yes Smoking Status (MU): Current Every Day Smoker Type: Cigarettes Amount Used/How Often: 5-7 CIG/DAY Length of Time of Smoking/Using Tobacco: 17 years Have You Smoked in the Last Year: Yes Review of Systems Positive: Fever, Chills ENT: Other - Head congestion Positive: Dental Pain - Right upper, Sore Throat, Nasal Discharge - Post-nasal drip Positive: Other - Chest tightness All Other Systems Reviewed And Are Negative: Yes Physical Exam - Summary Physical Exam Summary: Appearance: Well appearing, no pain distress Skin: warm, dry, reflects adequate perfusion Head/face: normal Eyes: EOMI, CODY ENT: Erosion of first right upper premolar. No swelling of the gingiva. Mucus membranes moist. Normal tonsils. Neck: supple, non-tender Respiratory: CTA, breath sounds present Cardiovascular: RRR, pulses symmetrical Abdomen: non-tender, soft Bowel Sounds: present Musculoskeletal: normal, strength/ROM intact Neuro: normal, sensory motor intact, A&Ox3 Triage Information Reviewed: Yes Vital Signs On Initial Exam: Initial Vitals Temp Pulse Resp BP Pulse Ox 97.4 F 81 16 115/71 100 09/09/17 19:09 09/09/17 19:09 09/09/17 19:09 09/09/17 19:09 09/09/17 19:09 Vital Signs Reviewed: Yes Diagnostics - Vital Signs Vital Signs Temp Pulse Resp BP Pulse Ox 09/09/17 19:09 97.4 F 81 16 115/71 100 - Laboratory Lab Statement: Any lab studies that have been ordered have been reviewed, and results considered in the medical decision making process. - Radiology CXR Xray Interpretation: No Acute Changes - 19:29: NORMAL CHEST. ED physician reviewed radiology report. Radiology Interpretation Completed By: Radiologist Course/Dx - Course Course Of Treatment: Patient with URI symptoms and a negative chest x-ray. She also complains of dental plan in a number of teeth. There is no evidence for sinus at those sites. She was placed on antibiotics not for the upper respiratory infection but rather for the dental pain. She is encouraged to follow-up with dental. He was treated with decongestants and steroids for the URI symptoms. - Diagnoses Provider Diagnoses: Upper respiratory infection, Dental caries Discharge - Sign-Out/Discharge Documenting (check all that apply): Discharge/Admit/Transfer - Discharge - Discharge Plan Condition: Good Disposition: HOME Prescriptions: Clindamycin Cap(NF) [Clindamycin Cap 300 mg Cap(NF)] 300 mg PO TID #21 cap Guaifenesin/Phenylephrine HCl [Chest Congestion Relief PE] 1 each PO TID PRN # 21 tablet PRN Reason: Congestion predniSONE TAB* [Deltasone TAB*] 50 mg PO DAILY #4 tab Patient Education Materials: Upper Respiratory Infection (ED), Toothache (ED) Referrals: [facility] [Outside] [facility] [Outside] Additional Instructions: Call your dentist to follow-up any dental discomfort. Tylenol as needed. Return with high fever, vomiting, difficulty breathing, worse or other concerns. Cut back on smoking. - Billing Disposition and Condition Condition: GOOD Disposition: Home The documentation as recorded by the Marshal chowdary Jade accurately reflects the service I personally performed and the decisions made by me, Brigido Estevez MD.
== END | disposition home or self-care (01) ==
LOC: ED 18:39
DX: J06.9 Acute upper respiratory infection, unspecified (principal); K02.9 Dental caries, unspecified; F17.210 Nicotine dependence, cigarettes, uncomplicated; Z87.09 Personal history of other diseases of the respiratory system; Z83.6 Family history of other diseases of the respiratory system; Z88.0 Allergy status to penicillin; Z88.5 Allergy status to narcotic agent; Z88.6 Allergy status to analgesic agent
CPT/HCPCS: 71046; 99282

== ENCOUNTER 2017-09-13 07:51 | Emergency (ER) | payer OTHER ==
[2017-09-13] MEDS ORDERED: oxyCODONE TAB* 5 MG TAB PO ONE (08:20)
[2017-09-13] MEDS ORDERED: Clindamycin CAP* 150 MG PO ONE (08:20)
[2017-09-13 10:20] VITALS: BP 126/85
--- NOTE | 2017-09-13 16:29 | ED ---
Christiano Mckinney SooYoung, scribed for Quirino Ghotra MD on 09/13/17 at 0805 . Throat Pain/Nasal Congestion - HPI Summary HPI Summary: A 27 y/o F presents to ED with c/o R dental pain onset last week. Associated sx : bilat throat pain, KEARNS, swelling of throat, tongue and cheek, inability to hear out of R ear. She's been taking Aspirin to no relief. Pt seen in ED on 09/09 for same sx. She is not on her prescribed ABX due to insurance complications. SHx: tonsillectomy. - History of Current Complaint Chief Complaint: EDDentalPain Time Seen by Provider: 09/13/17 08:01 Hx Obtained From: Patient Onset/Duration: Lasting Days, Still Present Severity: Severe - 10 out of 10 - Allergies/Home Medications Allergies/Adverse Reactions: Allergies Allergy/AdvReac Type Severity Reaction Status Date / Time hydrocodone [From Vicodin] Allergy Rash Verified 09/13/17 07:57 ibuprofen Allergy Swelling Verified 09/13/17 07:57 Of Face,Lips,& Throat Penicillins Allergy Swelling Verified 09/13/17 07:57 Of Face,Lips,& Throat PMH/Surg Hx/FS Hx/Imm Hx Previously Healthy: No Endocrine/Hematology History: Denies: Hx Anticoagulant Therapy, Hx Diabetes, Hx Thyroid Disease Cardiovascular History: Denies: Hx Congestive Heart Failure, Hx Deep Vein Thrombosis, Hx Hypertension , Hx Myocardial Infarction, Hx Pacemaker/ICD, Hx Peripheral Vascular Disease Respiratory History: Reports: Hx Asthma, Hx Chronic Bronchitis Denies: Hx Chronic Obstructive Pulmonary Disease (COPD), Hx Lung Cancer, Hx Pneumonia, Hx Pulmonary Embolism GI History: Reports: Other GI Disorders - hx bladder infection Denies: Hx Gall Bladder Disease, Hx Gastrointestinal Bleed, Hx Ulcer, Hx Urosepsis History: Reports: Hx Kidney Infection, Hx Kidney Stones, Hx Renal Disease - Her last kidney/bladder infection was about a year ago., Other Problems/ Disorders - UNABLE TO VOID TODAY Musculoskeletal History: Denies: Hx Arthritis, Hx Rheumatoid Arthritis, Hx Osteoporosis Sensory History: Denies: Hx Cataracts, Hx Contacts or Glasses, Hx Glaucoma, Hx Hearing Aid Opthamlomology History: Denies: Hx Cataracts, Hx Contacts or Glasses, Hx Glaucoma Neurological History: Reports: Hx Migraine Denies: Hx Dementia, Hx Headaches, Hx Seizures, Hx Transient Ischemic Attacks (TIA) Psychiatric History: Reports: Hx Bipolar Disorder - She takes depakote for this. , Other Psychiatric Issues/Disorders - bipolar Denies: Hx Anxiety, Hx Depression, Hx Panic Disorder, Hx Schizophrenia - Surgical History Surgery Procedure, Year, and Place: Tonsillectomy adenoidectomy. C section X4, Tubal Ligation - Immunization History Date of Tetanus Vaccine: Unknown Date of Influenza Vaccine: None Infectious Disease History: No Infectious Disease History: Reports: Hx of Known/Suspected MRSA - ? hx of leg wound Denies: Hx Clostridium Difficile, Hx Hepatitis, Hx Human Immunodeficiency Virus (HIV), Hx Shingles, Hx Tuberculosis, Hx Known/Suspected VRE, Hx Known/ Suspected VRSA, History Other Infectious Disease, Traveled Outside the [place] in Last 30 Days - Family History Known Family History: Positive: Cardiac Disease - mother had minor [place] at 46 y/o , Hypertension, Diabetes, Respiratory Disease - Chronic bronchitis, Other - migraines mom had brain CA, depression, anxiety...mom has LUPUS - Social History Occupation: Unemployed Lives: With Family Alcohol Use: None Hx Substance Use: No Substance Use Type: Reports: None Substance Use Comment - Amount & Last Used: prenatals state illicit drug use history Hx Tobacco Use: Yes Smoking Status (MU): Current Every Day Smoker Type: Cigarettes Amount Used/How Often: 5-7 CIG/DAY Length of Time of Smoking/Using Tobacco: 17 years Have You Smoked in the Last Year: Yes Review of Systems Positive: Dental Pain, Sore Throat - bilat throat pain, Other - swelling of throat, tongue and cheek; inability to hear out of R ear Positive: Headache All Other Systems Reviewed And Are Negative: Yes Physical Exam - Summary Physical Exam Summary: General: well-appearing, mild pain distress Skin: warm, color reflects adequate perfusion, dry Head: normal Eyes: EOMI, CODY ENT: normal, TMs normal; Posterior pharynx nml, uvula is midline without swelling; tenderness to palpation under R jaw, minimal swelling palpated DENTAL: R lower jaw has molar with severe decay; gingival swelling; Neck: supple, nontender Respiratory: CTA, breath sounds present Cardiovascular: RRR Abdomen: soft, nontender Bowel: present Musculoskeletal: normal, strength/ROM intact Neurological: sensory/motor intact, A&O x3 Psychological: affect/mood appropriate Triage Information Reviewed: Yes Vital Signs On Initial Exam: Initial Vitals Temp Pulse Resp BP Pulse Ox 98.6 F 105 18 140/91 98 09/13/17 07:53 09/13/17 07:53 09/13/17 07:53 09/13/17 07:53 09/13/17 07:53 Vital Signs Reviewed: Yes Diagnostics - Vital Signs Vital Signs Temp Pulse Resp BP Pulse Ox 09/13/17 07:53 98.6 F 105 18 140/91 98 - Laboratory Lab Statement: Any lab studies that have been ordered have been reviewed, and results considered in the medical decision making process. Re-Evaluation - Re-Evaluation 1 Re-Evaluation Time: 09:45 Change: Improved Comment: Discussing consult with pharmacy re: pt's Rx. Plan to D/C. Pt voiced understanding. EENT Course/Dx - Course Course Of Treatment: NO AIRWAY SWELLING FOUND ON EXAM. [place]. THE PATIENT HAS NOT BEEN ON ANTIBIOTICS DUE TO AN INSURANCE ISSUE. I SPOKE WITH [facility]; THEY SAID THE CLINDAMYCIN RX HAS BEEN APPROVED. THE PATIENT WILL PEDIATRIC DERMATOLOGIST THE RX TODAY. RETURN IF WORSE. - Diagnoses Provider Diagnoses: Dental infection Discharge - Sign-Out/Discharge Documenting (check all that apply): Discharge/Admit/Transfer - Discharge Plan Condition: Stable Disposition: HOME Prescriptions: oxyCODONE TAB* [Roxycodone TAB 5 mg*] 5 mg PO Q6H PRN #15 tab MDD 4 PRN Reason: Pain Patient Education Materials: Dental Abscess (ED) Referrals: [facility] [place] [facility] [Outside] Additional Instructions: FOLLOW UP WITH YOUR DENTIST. GET RECHECKED FOR ANY WORSENING OF YOUR CONDITION OR QUESTIONS OR CONCERNS. - Billing Disposition and Condition Condition: STABLE Disposition: Home The documentation as recorded by the Christiano chowdary SooYoung accurately reflects the service I personally performed and the decisions made by me, Quirino Ghotra MD.
== END 2017-09-13 10:18 | disposition home or self-care (01) ==
LOC: ED 07:51
DX: K04.7 Periapical abscess without sinus (principal); F17.210 Nicotine dependence, cigarettes, uncomplicated; Z88.0 Allergy status to penicillin; Z88.6 Allergy status to analgesic agent; Z88.5 Allergy status to narcotic agent
CPT/HCPCS: 99282; A9270-GY

== ENCOUNTER 2017-09-23 15:34 | Emergency (ER) | payer OTHER ==
--- NOTE | 2017-09-23 15:37 | UC ---
Throat Pain/Nasal Yusuf HPI - HPI Summary HPI Summary: Patient stopped taking clindamycin after 4 days. Because she developed what she believed to be thrush in her mouth. Also complains of postnasal drip also complains of a harsh cough she's cigarette smoker usually uses an inhaler during winter hasn't used it all this summer. Patient has no nausea vomiting no fevers or chills no acute distress - History of Current Complaint Chief Complaint: UCRespiratory Stated Complaint: THROAT PAIN Time Seen by Provider: 09/23/17 15:36 Hx Obtained From: Patient Hx Last Menstrual Period: 04/13/17 ?: No Onset/Duration: Sudden Onset Severity: Moderate Associated Signs & Symptoms: Positive: Negative - Allergies/Home Medications Allergies/Adverse Reactions: Allergies Allergy/AdvReac Type Severity Reaction Status Date / Time hydrocodone [From Vicodin] Allergy Rash Verified 09/23/17 15:44 ibuprofen Allergy Swelling Verified 09/23/17 15:44 Of Face,Lips,& Throat Penicillins Allergy Swelling Verified 09/23/17 15:44 Of Face,Lips,& Throat PMH/Surg Hx/FS Hx/Imm Hx Previously Healthy: Yes Respiratory History: Asthma, Other Other Respiratory History: MILD INTERMITTENT ASTHMA Other History Of: Negative For: HIV, Hepatitis B, Hepatitis C, Anticoagulant Therapy - Surgical History Surgical History: Yes Surgery Procedure, Year, and Place: Tonsillectomy adenoidectomy. C section X4, Tubal Ligation - Family History Known Family History: Positive: Cardiac Disease - mother had minor [place] at 46 y/o , Hypertension, Diabetes, Respiratory Disease - Chronic bronchitis, Other - migraines mom had brain CA, depression, anxiety...mom has LUPUS - Social History Occupation: Unemployed Lives: With Family Alcohol Use: None Substance Use Type: None Substance Use Comment - Amount & Last Used: prenatals state illicit drug use history Smoking Status (MU): Current Every Day Smoker Type: Cigarettes Amount Used/How Often: 5-7 CIG/DAY Length of Time of Smoking/Using Tobacco: 17 years Have You Smoked in the Last Year: Yes Household Exposure Type: Cigarettes Cessation Counseling: Counseled 3+Min - 10 Min - Immunization History Most Recent Influenza Vaccination: declined for this year Most Recent Tetanus Shot: UTD Most Recent Pneumonia Vaccination: none Review of Systems Constitutional: Fatigue Skin: Negative Eyes: Negative ENT: Sore Throat, Nasal Discharge Respiratory: Cough Cardiovascular: Negative Gastrointestinal: Negative Genitourinary: Negative Motor: Negative Neurovascular: Negative Musculoskeletal: Negative Neurological: Negative Psychological: Negative Is Patient Immunocompromised?: No All Other Systems Reviewed And Are Negative: Yes Physical Exam Triage Information Reviewed: Yes Appearance: Well-Appearing, No Pain Distress, Well-Nourished Vital Signs Reviewed: Yes Eye Exam: Normal Eyes: Positive: Conjunctiva Clear ENT Exam: Normal ENT: Positive: Normal ENT inspection, Hearing grossly normal, Pharynx normal, Nasal drainage, TMs normal, Uvula midline. Negative: Trismus, Muffled voice, Hoarse voice, Dental tenderness, Sinus tenderness Dental Exam: Normal Neck exam: Normal Neck: Positive: Supple, Nontender Respiratory Exam: Normal Respiratory: Positive: Chest non-tender, Lungs clear, Normal breath sounds, No respiratory distress, No accessory muscle use Cardiovascular Exam: Normal Cardiovascular: Positive: RRR, No Murmur, Pulses Normal, Brisk Capillary Refill Musculoskeletal Exam: Normal Musculoskeletal: Positive: Strength Intact, ROM Intact, No Edema Neurological Exam: Normal Neurological: Positive: Alert, Muscle Tone Normal Psychological Exam: Normal Skin Exam: Normal Throat Pain/Nasal Course/Dx - Course Assessment/Plan: Nicotine cessation information provided, Flonase nasal spray albuterol inhaler, FOLLOW WITH PCP PRN (REFERRAL MADE) - Differential Dx/Diagnosis Provider Diagnoses: URI, NICOTINE DEPENDENT, THRUSH Discharge - Sign-Out/Discharge Documenting (check all that apply): Patient Departure - Discharge Plan Condition: Stable Disposition: HOME Prescriptions: Albuterol HFA INHALER* [Ventolin HFA Inhaler*] 2 puff INH Q4H PRN #1 mdi PRN Reason: COUGH/CHEST TIGHTNESS Fluticasone NASAL SPRAY 50MCG* [Flonase NASAL SPRAY 50MCG*] 2 spray BOTH NARES DAILY #1 btl Nystatin SUSPENSION ORAL SYR* 500,000 units PO QID #240 ml Patient Education Materials: How to Stop Smoking (ED), Oral Candidiasis (ED), Postnasal Drip (DC) Forms: *Gen. Provider Communication [place] [facility] [place]] - If Needed - Billing Disposition and Condition Condition: STABLE Disposition: Home
[2017-09-23 15:43] VITALS: BP 135/62
== END 2017-09-23 16:24 | disposition home or self-care (01) ==
LOC: UCEAST 15:34
DX: J06.9 Acute upper respiratory infection, unspecified (principal); B37.0 Candidal stomatitis; J45.909 Unspecified asthma, uncomplicated; F17.210 Nicotine dependence, cigarettes, uncomplicated; Z88.5 Allergy status to narcotic agent; Z88.6 Allergy status to analgesic agent; Z88.0 Allergy status to penicillin
CPT/HCPCS: 87651; 99212; G0463

== ENCOUNTER 2017-09-28 10:42 | Emergency (ER) | payer OTHER ==
[2017-09-28 10:51] VITALS: BP 132/84
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
== END 2017-09-28 11:30 | disposition home or self-care (01) ==
LOC: UCEAST 10:42
DX: B37.0 Candidal stomatitis (principal); Z11.3 Encounter for screening for infections with a predominantly sexual mode of transmission; R35.0 Frequency of micturition; Z88.6 Allergy status to analgesic agent; Z88.5 Allergy status to narcotic agent; Z88.0 Allergy status to penicillin; Z85.41 Personal history of malignant neoplasm of cervix uteri; Z82.49 Family history of ischemic heart disease and other diseases of the circulatory system; Z83.3 Family history of diabetes mellitus; Z83.6 Family history of other diseases of the respiratory system; Z80.8 Family history of malignant neoplasm of other organs or systems; Z81.8 Family history of other mental and behavioral disorders; F17.210 Nicotine dependence, cigarettes, uncomplicated
CPT/HCPCS: 36415; 81003; 86703; 87491; 87591; 99212; G0463

== ENCOUNTER 2017-10-16 15:49 | Emergency (ER) | payer OTHER ==
[2017-10-16] MEDS ORDERED: Acetaminophen TAB* 325 MG PO ONE (16:18)
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
[2017-10-16 18:04] VITALS: BP 0/0
== END 2017-10-16 17:50 | disposition home or self-care (01) ==
LOC: ED 15:49
DX: S39.012A Strain of muscle, fascia and tendon of lower back, initial encounter (principal); S76.012A Strain of muscle, fascia and tendon of left hip, initial encounter; Y08.89XA Assault by other specified means, initial encounter; Y92.9 Unspecified place or not applicable; F17.210 Nicotine dependence, cigarettes, uncomplicated; Z88.0 Allergy status to penicillin; Z88.5 Allergy status to narcotic agent; Z88.6 Allergy status to analgesic agent
CPT/HCPCS: 72110; 99282

== ENCOUNTER 2017-10-18 08:42 | Emergency (ER) | payer OTHER ==
[2017-10-18 08:51] VITALS: BP 128/84
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
== END 2017-10-18 10:38 | disposition home or self-care (01) ==
LOC: UCEAST 08:42
DX: M25.552 Pain in left hip (principal); M54.5 Low back pain; F31.9 Bipolar disorder, unspecified; Z88.6 Allergy status to analgesic agent; Z88.5 Allergy status to narcotic agent; Z88.0 Allergy status to penicillin; Z82.49 Family history of ischemic heart disease and other diseases of the circulatory system; Z83.3 Family history of diabetes mellitus; Z83.6 Family history of other diseases of the respiratory system; Z81.8 Family history of other mental and behavioral disorders; F12.10 Cannabis abuse, uncomplicated
CPT/HCPCS: 99213; G0463

== ENCOUNTER 2017-11-09 10:51 | Emergency (ER) | payer MEDICAID ==
[2017-11-09 11:19] VITALS: BP 108/81
--- NOTE | 2017-11-09 11:31 | UC ---
UC General HPI - HPI Summary HPI Summary: Patient complaining of vomiting and diarrhea for the past 4 days with low-grade fever and general malaise. Patient denies presence of melena, blood or mucus in the stools. She states she has urine output and she has been able to hydrate herself in between episodes of vomiting, she does not feel thirsty. She is concerned that she cannot eat as she cannot tolerate food due to nausea. She also has had nasal discharge since the diarrhea started. - History of Current Complaint Chief Complaint: UCGI Stated Complaint: VOM/DIARRHEA Time Seen by Provider: 11/09/17 11:21 Hx Obtained From: Patient Hx Last Menstrual Period: 10/11/17 Onset/Duration: Sudden Onset, Lasting Days Onset Severity: Moderate Current Severity: Severe Pain Intensity: 10 - Allergy/Home Medications Allergies/Adverse Reactions: Allergies Allergy/AdvReac Type Severity Reaction Status Date / Time hydrocodone [From Vicodin] Allergy Rash Verified 10/18/17 08:52 ibuprofen Allergy Swelling Verified 10/18/17 08:52 Of Face,Lips,& Throat Penicillins Allergy Swelling Verified 10/18/17 08:52 Of Face,Lips,& Throat Home Medications: Home Medications Acetaminophen 650 mg PO DAILY 11/09/17 [History Confirmed 11/09/17] Amitriptyline TAB* [Elavil TAB*] 20 mg PO DAILY 11/09/17 [History Confirmed ] Propranolol HCl 40 mg PO DAILY 11/09/17 [History Confirmed 11/09/17] PMH/Surg Hx/FS Hx/Imm Hx Psychological History: Anxiety, Bipolar Disorder Other History Of: Negative For: HIV, Hepatitis B, Hepatitis C, Anticoagulant Therapy - Surgical History Surgical History: Yes Surgery Procedure, Year, and Place: Tonsillectomy adenoidectomy. C section X4, Tubal Ligation - Family History Known Family History: Positive: Cardiac Disease - mother had minor MS at 46 y/o , Hypertension, Diabetes, Respiratory Disease - Chronic bronchitis, Other - migraines mom had brain CA, depression, anxiety...mom has LUPUS - Social History Alcohol Use: Occasionally Substance Use Type: Marijuana Substance Use Comment - Amount & Last Used: DAILY Smoking Status (MU): Current Every Day Smoker Type: Cigarettes Amount Used/How Often: 5-7 CIG/DAY Length of Time of Smoking/Using Tobacco: 17 years Have You Smoked in the Last Year: Yes Household Exposure Type: Cigarettes - Immunization History Most Recent Influenza Vaccination: declined for this year Most Recent Tetanus Shot: UTD Most Recent Pneumonia Vaccination: none Review of Systems Constitutional: Negative Gastrointestinal: Abdominal Pain, Vomiting, Diarrhea All Other Systems Reviewed And Are Negative: Yes Physical Exam Triage Information Reviewed: Yes Appearance: Well-Appearing, No Pain Distress, Obese Vital Signs: Initial Vital Signs Temp 98.5 F 11/09/17 11:10 Pulse 79 11/09/17 11:10 Resp 16 11/09/17 11:10 BP 108/81 11/09/17 11:10 Pulse Ox 99 11/09/17 11:10 Vital Signs Reviewed: Yes Eyes: Positive: Conjunctiva Clear ENT: Positive: Hearing grossly normal, Pharynx normal, Nasal congestion Neck: Positive: Supple, Nontender, No Lymphadenopathy Respiratory: Positive: Chest non-tender, Lungs clear, Normal breath sounds, No respiratory distress Cardiovascular: Positive: RRR, No Murmur, Pulses Normal, Brisk Capillary Refill Abdomen Description: Positive: Nontender, No Organomegaly, Soft Bowel Sounds: Positive: Present Musculoskeletal: Positive: Strength Intact, ROM Intact, No Edema Course/Dx - Course Course Of Treatment: Patient complaining of vomiting and diarrhea for the past 4 days with low-grade fever and general malaise. Patient denies presence of melena, blood or mucus in the stools. She states she has urine output and she has been able to hydrate herself in between episodes of vomiting, she does not feel thirsty. She is concerned that she cannot eat as she cannot tolerate food due to nausea. She also has had nasal discharge since the diarrhea started. Given the constellation of symptoms of viral gastroenteritis is the possible diagnosis. Instructed to keep oral fluid intake with electrolyte solutions, diluted juices, and abstain from caffeine - Differential Dx - Multi-Symptom Provider Diagnoses: viral gastroenteritis Discharge - Sign-Out/Discharge Documenting (check all that apply): Patient Departure All imaging exams completed and their final reports reviewed: No Studies - Discharge Plan Condition: Stable Disposition: HOME Referrals: [facility] [Outside] No Primary Care Phys,NOPCP [Primary Care Provider] - - Billing Disposition and Condition Condition: STABLE Disposition: Home
== END 2017-11-09 11:39 | disposition home or self-care (01) ==
LOC: UCCORT 10:51
DX: A08.4 Viral intestinal infection, unspecified (principal); F17.210 Nicotine dependence, cigarettes, uncomplicated; F31.9 Bipolar disorder, unspecified; F41.9 Anxiety disorder, unspecified; Z88.8 Allergy status to other drugs, medicaments and biological substances; Z88.0 Allergy status to penicillin; Z88.5 Allergy status to narcotic agent
CPT/HCPCS: 99212; G0463

== ENCOUNTER 2017-11-13 15:46 | Emergency (ER) | payer MEDICAID ==
[2017-11-13 15:58] VITALS: BP 125/65
--- NOTE | 2017-11-13 16:59 | UC ---
Abdominal Pain Female HPI - HPI Summary HPI Summary: patient complained of continued diarrhea--but reports she was able to eat solid food today - History of Current Complaint Chief Complaint: UCAbdominalPain Stated Complaint: ABD PAIN,HEAD PAIN Time Seen by Provider: 11/13/17 16:48 Hx Obtained From: Patient Hx Last Menstrual Period: 11/13/17 ?: No Onset/Duration: Gradual Onset, Lasting Days - 5, Still Present Timing: Constant Pain Intensity: 8 Pain Scale Used: 0-10 Numeric Location: Diffuse Radiates: No Character: Cramping Aggravating Factor(s): Nothing Alleviating Factor(s): Nothing Associated Signs and Symptoms: Positive: Nausea, Vomiting, Diarrhea Allergies/Adverse Reactions: Allergies Allergy/AdvReac Type Severity Reaction Status Date / Time hydrocodone [From Vicodin] Allergy Rash Verified 11/13/17 15:58 ibuprofen Allergy Swelling Verified 11/13/17 15:58 Of Face,Lips,& Throat Penicillins Allergy Swelling Verified 11/13/17 15:58 Of Face,Lips,& Throat PMH/Surg Hx/FS Hx/Imm Hx Previously Healthy: No - chronic pain Other History Of: Negative For: HIV, Hepatitis B, Hepatitis C, Anticoagulant Therapy - Surgical History Surgical History: Yes Surgery Procedure, Year, and Place: Tonsillectomy adenoidectomy. C section X4, Tubal Ligation - Family History Known Family History: Positive: Cardiac Disease - mother had minor AK at 46 y/o , Hypertension, Diabetes, Respiratory Disease - Chronic bronchitis, Other - migraines mom had brain CA, depression, anxiety...mom has LUPUS - Social History Occupation: Unemployed Lives: With Family Alcohol Use: Occasionally Substance Use Type: Marijuana Substance Use Comment - Amount & Last Used: DAILY Smoking Status (MU): Current Every Day Smoker Type: Cigarettes Amount Used/How Often: 5-7 CIG/DAY Length of Time of Smoking/Using Tobacco: 17 years Have You Smoked in the Last Year: Yes Household Exposure Type: Cigarettes - Immunization History Most Recent Influenza Vaccination: declined for this year Most Recent Tetanus Shot: UTD Most Recent Pneumonia Vaccination: none Review of Systems Constitutional: Negative Skin: Negative Eyes: Negative ENT: Negative Respiratory: Negative Cardiovascular: Negative Gastrointestinal: Abdominal Pain, Diarrhea Genitourinary: Negative Motor: Negative Neurovascular: Negative Musculoskeletal: Negative Neurological: Negative Psychological: Negative Is Patient Immunocompromised?: No All Other Systems Reviewed And Are Negative: Yes Physical Exam Triage Information Reviewed: Yes Appearance: Well-Appearing, No Pain Distress, Obese Vital Signs: Initial Vital Signs Temp 98.2 F 11/13/17 15:53 Pulse 85 11/13/17 15:53 Resp 18 11/13/17 15:53 BP 125/65 11/13/17 15:53 Pulse Ox 98 11/13/17 15:53 Vital Signs Reviewed: Yes Eye Exam: Normal Eyes: Positive: Conjunctiva Clear ENT Exam: Normal ENT: Positive: Normal ENT inspection, Hearing grossly normal. Negative: Trismus , Muffled voice, Hoarse voice Dental Exam: Normal Neck exam: Normal Neck: Positive: Supple, Nontender Respiratory Exam: Normal Respiratory: Positive: Chest non-tender, No respiratory distress, No accessory muscle use Cardiovascular Exam: Normal Cardiovascular: Positive: RRR, Pulses Normal, Brisk Capillary Refill Abdominal Exam: Normal Abdomen Description: Positive: No Organomegaly, Soft, Other: - generalized discomfort Bowel Sounds: Positive: Present Musculoskeletal Exam: Normal Musculoskeletal: Positive: Strength Intact, ROM Intact, No Edema Neurological Exam: Normal Neurological: Positive: Alert, Muscle Tone Normal Psychological Exam: Normal Skin Exam: Normal Abd Pain Female Course/Dx - Course Course Of Treatment: left without announcing intentions - Differential Dx/Diagnosis Provider Diagnoses: abdomen pain Discharge - Sign-Out/Discharge Documenting (check all that apply): Patient Departure All imaging exams completed and their final reports reviewed: No Studies - Discharge Plan Condition: Good Disposition: ELOPEMENT Referrals: Jeremias Bolivar MD [Primary Care Provider] - - Billing Disposition and Condition Condition: GOOD Disposition: Elopement
== END 2017-11-13 17:01 | disposition home or self-care (01) ==
LOC: UCEAST 15:46
DX: R19.7 Diarrhea, unspecified (principal); R10.9 Unspecified abdominal pain; F17.210 Nicotine dependence, cigarettes, uncomplicated
CPT/HCPCS: 99212; G0463

== ENCOUNTER 2017-11-29 12:51 | Emergency (ER) | payer MEDICAID ==
[2017-11-29] MEDS ORDERED: NS 0.9% 1000 ML* 1,000 ML IV ONE (14:41)
[2017-11-29] MEDS ORDERED: Ondansetron INJ* 2 MG/ML VIAL IV ONE (14:41)
--- NOTE | 2017-11-29 14:51 | ED ---
HPI Febrile Illness - HPI Summary HPI Summary: This patient is a 27 year old F BIBA to [facility] with a chief complaint of chills that began [employer]. The patient rates the pain 6/10 in severity. Symptoms aggravated by nothing. Symptoms alleviated by nothing. Patient reports fever, myalgia, abd pain, vomiting, chest congestion, headache, CP, bilateral lower extremity edema, anxiety, and depression. Patient denies double vision, blurred vision, dysuria, and hematuria. - History of Current Complaint Chief Complaint: EDFluSymptoms Hx Obtained From: Patient Hx Last Menstrual Period: 11/13/17 Onset/Duration: Started Hours Ago, Atraumatic, Still Present Timing: Constant Initial Severity: Moderate Current Severity: Moderate Pain Intensity: 6 Pain Scale Used: 0-10 Numeric Aggravating Factors: Nothing Alleviating Factors: Nothing Associated Signs and Symptoms: Other: - Positive fever, myalgia, abd pain, vomiting, chest congestion, headache, CP, bilateral lower extremity edema, anxiety, and depression. Negative double vision, blurred vision, dysuria, and hematuria - Allergy/Home Medications Allergies/Adverse Reactions: Allergies Allergy/AdvReac Type Severity Reaction Status Date / Time hydrocodone [From Vicodin] Allergy Rash Verified 11/13/17 15:58 ibuprofen Allergy Swelling Verified 11/13/17 15:58 Of Face,Lips,& Throat Penicillins Allergy Swelling Verified 11/13/17 15:58 Of Face,Lips,& Throat PMH/Surg Hx/FS Hx/Imm Hx Previously Healthy: No Endocrine/Hematology History: Denies: Hx Anticoagulant Therapy, Hx Diabetes, Hx Thyroid Disease Cardiovascular History: Denies: Hx Congestive Heart Failure, Hx Deep Vein Thrombosis, Hx Hypertension , Hx Myocardial Infarction, Hx Pacemaker/ICD, Hx Peripheral Vascular Disease Respiratory History: Reports: Hx Asthma, Hx Chronic Bronchitis Denies: Hx Chronic Obstructive Pulmonary Disease (COPD), Hx Lung Cancer, Hx Pneumonia, Hx Pulmonary Embolism GI History: Reports: Other GI Disorders - hx bladder infection Denies: Hx Gall Bladder Disease, Hx Gastrointestinal Bleed, Hx Ulcer, Hx Urosepsis History: Reports: Hx Kidney Infection, Hx Kidney Stones, Hx Renal Disease - Her last kidney/bladder infection was about a year ago., Other Problems/ Disorders - UNABLE TO VOID TODAY Musculoskeletal History: Denies: Hx Arthritis, Hx Rheumatoid Arthritis, Hx Osteoporosis Sensory History: Denies: Hx Cataracts, Hx Contacts or Glasses, Hx Glaucoma, Hx Hearing Aid Opthamlomology History: Denies: Hx Cataracts, Hx Contacts or Glasses, Hx Glaucoma Neurological History: Reports: Hx Migraine Denies: Hx Dementia, Hx Headaches, Hx Seizures, Hx Transient Ischemic Attacks (TIA) Psychiatric History: Reports: Hx Bipolar Disorder - She takes depakote for this. , Other Psychiatric Issues/Disorders - bipolar Denies: Hx Anxiety, Hx Depression, Hx Panic Disorder, Hx Schizophrenia - Surgical History Surgery Procedure, Year, and Place: Tonsillectomy adenoidectomy. C section X4, Tubal Ligation - Immunization History Date of Tetanus Vaccine: Unknown Date of Influenza Vaccine: None Infectious Disease History: No Infectious Disease History: Reports: Hx of Known/Suspected MRSA - ? hx of leg wound Denies: Hx Clostridium Difficile, Hx Hepatitis, Hx Human Immunodeficiency Virus (HIV), Hx Shingles, Hx Tuberculosis, Hx Known/Suspected VRE, Hx Known/ Suspected VRSA, History Other Infectious Disease, Traveled Outside the [place] in Last 30 Days - Family History Known Family History: Positive: Cardiac Disease - mother had minor MA at 46 y/o , Hypertension, Diabetes, Respiratory Disease - Chronic bronchitis, Other - migraines mom had brain CA, depression, anxiety...mom has LUPUS - Social History Occupation: Unemployed Lives: With Family Alcohol Use: Occasionally Hx Substance Use: No Substance Use Type: Reports: Marijuana Substance Use Comment - Amount & Last Used: DAILY Hx Tobacco Use: Yes Smoking Status (MU): Current Every Day Smoker Type: Cigarettes Amount Used/How Often: 5-7 CIG/DAY Length of Time of Smoking/Using Tobacco: 17 years Have You Smoked in the Last Year: Yes Review of Systems Positive: Fever, Chills Negative: Blurred Vision, Diplopia Positive: Chest Pain, Other - Chest congestion Positive: Shortness Of Breath Positive: Abdominal Pain, Vomiting Negative: dysuria, hematuria Positive: Edema Negative: Rash Positive: Headache Positive: Anxious, Depressed All Other Systems Reviewed And Are Negative: No Physical Exam - Summary Physical Exam Summary: Appearance: Alert, conversive, nontoxic appearing Skin: Warm, dry, no mottling, no rashes, no contusions HEENT: EOMI, PERRL, moist mucous membranes Neck: No masses on the neck, supple Respiratory: Clear to auscultation, breath sounds present, no rales, no rhonchi , no wheezes Cardiovascular: RRR, pulses are symmetrical in both lower and upper extremities Abdomen: Soft, non-tender Bowel Sounds: Present Musculoskeletal: No CVA tenderness, no obvious deformity, moving all extremities in a grossly normal manner Neurological: A&Ox3, CN II-XII Intact, moving all extremities symmetrically Psychiatric: Normal affect and mood Triage Information Reviewed: Yes Vital Signs On Initial Exam: Initial Vitals Temp Pulse Resp BP Pulse Ox 98.4 F 90 16 147/82 98 11/29/17 12:52 11/29/17 12:52 11/29/17 12:52 11/29/17 12:52 11/29/17 12:52 Vital Signs Reviewed: Yes Diagnostics - Vital Signs Vital Signs Temp Pulse Resp BP Pulse Ox 11/29/17 12:52 98.4 F 90 16 147/82 98 - Laboratory Result Diagrams: 11/29/17 16:17 11/29/17 16:17 Lab Statement: Any lab studies that have been ordered have been reviewed, and results considered in the medical decision making process. - Radiology CXR Radiology Interpretation Completed By: Radiologist - CXR reveals, per radiologist, no radiographic evidence of acute cardiopulmonary disease. ED physician has reviewed this radiology report. Re-Evaluation - Re-Evaluation First Eval Re-Evaluation Time: 14:45 Change: Unchanged Comment: Pt states she can take Toradol even though she is allergic to Ibuprofen Second Eval Re-Evaluation Time: 16:45 Change: Unchanged Comment: Discussed results and plan of care with pt Course/Dx - Course Course Of Treatment: This patient is a 27 year old F BIBA to [facility] with a chief complaint of chills that began [employer]. Physical Exam Findings: Nml. CXR reveals, per radiologist, no radiographic evidence of acute cardiopulmonary disease. Blood work and UA obtained. In the ED course the patient was given Toradol, fluids, and Zofran. Patient will be discharged with prescription for Macrodantin and with follow up from PCP. The patient is agreeable with this plan. - Diagnoses Provider Diagnoses: Viral syndrome, UTI (urinary tract infection) Discharge - Sign-Out/Discharge Documenting (check all that apply): Patient Departure - Discharge home - Discharge Plan Condition: Stable Disposition: HOME Prescriptions: Nitrofurantoin Macrocrystals* [Macrodantin 100 mg*] 100 mg PO DAILY #14 cap MDD 2 Patient Education Materials: Urinary Tract Infection in Women (DC), Viral Syndrome (ED) Forms: *Work Release Referrals: Jeremias Bolivar MD [Primary Care Provider] - Additional Instructions: drink plenty of fluids. take tylenol for pain or discomfort. return if worse or any new symptoms. It is important to follow up with your primary care physician this week. - Attestation Statements Document Initiated by Scribe: Yes Documenting Scribe: Marleni Ingram Provider For Whom Scribe is Documenting (Include Credential): Stormy Beck MD Scribe Attestation: IMarleni, scribed for Stormy Beck MD on 11/29/17 at 1645.
--- NOTE | 2017-11-29 14:56 | RAD ---
INDICATION: Cough COMPARISON: Most recent chest x-ray is dated September 09, 2017 TECHNIQUE: PA and lateral views of the chest were obtained. FINDINGS: The heart and mediastinum are normal in size and contour. The lungs are grossly clear. There is no evidence of large pleural effusion. Visualized bones are normal for the patient's age. There is no radiographic evidence of free air beneath the diaphragm IMPRESSION: No radiographic evidence of acute cardiopulmonary disease.
[2017-11-29] MEDS ORDERED: Ketorolac INJ* 30 MG/ML 1 ML VIAL IV PUSH ONE (15:05)
[2017-11-29 16:27] LABS: ABS Basophils 0.1 10^3/ul (0-0.2); ABS Eosinophils 0.3 10^3/ul (0-0.6); ABS Lymphocytes 3.9 10^3/ul (1.0-4.8); ABS Monocytes 0.7 10^3/ul (0-0.8); ABS Neutrophils 6.1 10^3/ul (1.5-7.7); ABS Nucleated RBC 0 10^3/ul; Hematocrit 39 % (35-47); Lymphocyte % 35.3 % (25-47); Mean Corpuscular HGB Conc 34 g/dl (31-36); Mean Corpuscular Hemoglobin 30 pg (27-31); Mean Corpuscular Volume 89 fL (80-97); Mean Platelet Volume 10.7 um3 (7.4-10.4); Nucleated Red Blood Cells % 0; Platelet Count 162 10^3/ul (150-450); Red Blood Count 4.33 10^6/ul (4.00-5.40); Red Cell Distribution Width 12 % (10.5-15); White Blood Count 11.1 10^3/ul (3.5-10.8)
[2017-11-29 16:34] LABS: Urine Appearance Cloudy; Urine Blood Negative (Negative); Urine Color Yellow; Urine Ketones Negative (Negative); Urine Protein Negative (Negative); Urine Red Blood Cell Absent (Absent); Urine Urobilinogen Negative (Negative); Urine White Blood Cell 3+(>20/hpf) (Absent)
[2017-11-29 16:43] LABS: EGFR Non-African American 118.2 (>60)
[2017-11-29 17:48] VITALS: BP 139/83
== END 2017-11-29 17:10 | disposition home or self-care (01) ==
LOC: ED 12:51
DX: B34.9 Viral infection, unspecified (principal); N39.0 Urinary tract infection, site not specified; F17.210 Nicotine dependence, cigarettes, uncomplicated
CPT/HCPCS: 36415; 71046; 80053; 81003; 81015; 85025; 87086; 96361; 96374; 96375; 99283; J1885; J2405

== ENCOUNTER 2018-01-03 07:46 | Emergency (ER) | payer MEDICAID ==
[2018-01-03] MEDS ORDERED: NS 0.9% 1000 ML* 1,000 ML IV ONE (09:08)
[2018-01-03] MEDS ORDERED: Ondansetron INJ* 2 MG/ML VIAL IV ONE (09:09)
[2018-01-03] MEDS ORDERED: methylPREDNISolone 125 MG* 2 ML VIAL IV ONE (09:12)
[2018-01-03] MEDS ORDERED: Albuterol/Ipratropium NEB.SOL* Albuterol 2.5 MG/Ipratropium 0.5 MG 3 ML INH ONE (09:12)
--- NOTE | 2018-01-03 09:13 | ED ---
Respiratory - HPI Summary HPI Summary: This patient is a 27 year old F presenting to [facility] with a chief complaint of cough and pleuritic chest pain since 1 day ago. The patient rates the pain 10/ 10 in severity. Symptoms aggravated by nothing. Symptoms alleviated by nothing. Patient reports nasal congestion, headache, myalgias, bilateral ear pain, chills , rhinorrhea, dizziness, lightheadedness, epigastric pain. Patient also notes emesis and diarrhea since 04:00 today. Patient denies hematuria, edema, rash, bruises, double vision or blurry vision. Patient is being treated for anxiety and depression. - History of Current Complaint Chief Complaint: EDFluSymptoms Stated Complaint: GENERAL ILLNESS Hx Obtained From: Patient Onset/Duration: Gradual Onset, Lasting Days - 1 day, Still Present, Worse Since - this morning Timing: Constant Initial Severity: Mild Current Severity: Moderate Pain Intensity: 10 Character: Cough (Nonproductive) Aggravating Factor(s): Nothing Alleviating Factor(s): Nothing Associated Signs and Symptoms: Chest Pain with Cough, Chills, Nasal Congestion, Dizziness, Pleuritic Chest Pain, Sinus Discomfort - Allergy/Home Medications Allergies/Adverse Reactions: Allergies Allergy/AdvReac Type Severity Reaction Status Date / Time hydrocodone [From Vicodin] Allergy Rash Verified 01/03/18 08:36 ibuprofen Allergy Swelling Verified 01/03/18 08:36 Of Face,Lips,& Throat Penicillins Allergy Swelling Verified 01/03/18 08:36 Of Face,Lips,& Throat PMH/Surg Hx/FS Hx/Imm Hx Endocrine/Hematology History: Denies: Hx Anticoagulant Therapy, Hx Diabetes, Hx Thyroid Disease Cardiovascular History: Denies: Hx Congestive Heart Failure, Hx Deep Vein Thrombosis, Hx Hypertension , Hx Myocardial Infarction, Hx Pacemaker/ICD, Hx Peripheral Vascular Disease Respiratory History: Reports: Hx Asthma, Hx Chronic Bronchitis Denies: Hx Chronic Obstructive Pulmonary Disease (COPD), Hx Lung Cancer, Hx Pneumonia, Hx Pulmonary Embolism GI History: Reports: Other GI Disorders - hx bladder infection Denies: Hx Gall Bladder Disease, Hx Gastrointestinal Bleed, Hx Ulcer, Hx Urosepsis History: Reports: Hx Kidney Infection, Hx Kidney Stones, Hx Renal Disease - Her last kidney/bladder infection was about a year ago., Other Problems/ Disorders - UNABLE TO VOID TODAY Musculoskeletal History: Denies: Hx Arthritis, Hx Rheumatoid Arthritis, Hx Osteoporosis Sensory History: Denies: Hx Cataracts, Hx Contacts or Glasses, Hx Glaucoma, Hx Hearing Aid Opthamlomology History: Denies: Hx Cataracts, Hx Contacts or Glasses, Hx Glaucoma Neurological History: Reports: Hx Migraine Denies: Hx Dementia, Hx Headaches, Hx Seizures, Hx Transient Ischemic Attacks (TIA) Psychiatric History: Reports: Hx Bipolar Disorder - She takes depakote for this. , Other Psychiatric Issues/Disorders - bipolar Denies: Hx Anxiety, Hx Depression, Hx Panic Disorder, Hx Schizophrenia - Surgical History Surgery Procedure, Year, and Place: Tonsillectomy adenoidectomy. C section X4, Tubal Ligation - Immunization History Date of Tetanus Vaccine: Unknown Date of Influenza Vaccine: None Infectious Disease History: No Infectious Disease History: Reports: Hx of Known/Suspected MRSA - ? hx of leg wound Denies: Hx Clostridium Difficile, Hx Hepatitis, Hx Human Immunodeficiency Virus (HIV), Hx Shingles, Hx Tuberculosis, Hx Known/Suspected VRE, Hx Known/ Suspected VRSA, History Other Infectious Disease, Traveled Outside the [place] in Last 30 Days - Family History Known Family History: Positive: Cardiac Disease - mother had minor ID at 46 y/o , Hypertension, Diabetes, Respiratory Disease - Chronic bronchitis, Other - migraines mom had brain CA, depression, anxiety, mom has LUPUS - Social History Alcohol Use: Rare Hx Substance Use: No Substance Use Type: Reports: Marijuana Substance Use Comment - Amount & Last Used: 01/02/18 Hx Tobacco Use: Yes Smoking Status (MU): Light Every Day Tobacco Smoker Type: Cigarettes Amount Used/How Often: 5-7 CIG/DAY Length of Time of Smoking/Using Tobacco: 17 years Have You Smoked in the Last Year: Yes Review of Systems Positive: Chills. Negative: Fever Negative: Blurred Vision, Diplopia Positive: Ear Ache, Nasal Discharge Positive: Chest Pain - chest tightness Positive: Cough Gastrointestinal: Other - negative bloody stool Positive: Vomiting, Diarrhea Negative: hematuria Positive: Myalgia Negative: Rash, Bruising Neurological: Other - dizziness, lightheadedness Positive: Headache Positive: Anxious, Depressed All Other Systems Reviewed And Are Negative: No Physical Exam - Summary Physical Exam Summary: Appearance: Alert, conversive, nontoxic appearing Skin: Warm, dry, no mottling, no rashes, no contusions HEENT: EOMI, PERRL, moist mucous membranes. Pharyngeal erythema Neck: No masses on the neck, supple Respiratory: Clear to auscultation, breath sounds present, no rales, no rhonchi , sporadic occasional wheeze, coughing during exam Cardiovascular: RRR, pulses are symmetrical in both lower and upper extremities Abdomen: Soft, non-tender Bowel Sounds: Present Musculoskeletal: No CVA tenderness, no obvious deformity, moving all extremities in a grossly normal manner Neurological: A&Ox3, CN II-XII Intact, moving all extremities symmetrically Psychiatric: Normal affect and mood Triage Information Reviewed: Yes Vital Signs On Initial Exam: Initial Vitals Temp Pulse Resp BP Pulse Ox 97.5 F 81 18 127/82 97 01/03/18 07:49 01/03/18 07:49 01/03/18 07:49 01/03/18 07:49 01/03/18 07:49 Vital Signs Reviewed: Yes Diagnostics - Vital Signs Vital Signs Temp Pulse Resp BP Pulse Ox 01/03/18 08:34 93 124/80 97 01/03/18 08:04 93 128/80 96 01/03/18 08:03 109 99 01/03/18 07:49 97.5 F 81 18 127/82 97 - Laboratory Result Diagrams: 01/03/18 10:07 01/03/18 10:07 Lab Statement: Any lab studies that have been ordered have been reviewed, and results considered in the medical decision making process. - Radiology CXR Xray Interpretation: No Acute Changes - No active cardiopulmonary disease. Dr. Beck has reviewed this report. Radiology Interpretation Completed By: Radiologist Re-Evaluation - Re-Evaluation 1st re-eval Re-Evaluation Time: 10:22 Change: Improved Comment: Discussed imaging results with patient. Pt is resting comfortably and is tachycardic at 115 bpm after recieving tx. Pt says her lungs feels better. Disposition - Course Course Of Treatment: This patient is a 27 year old F reporting cough and pleuritic chest pain since 1 day ago. Patient reports nasal congestion, headache , myalgias, bilateral ear pain, chills, rhinorrhea, dizziness, lightheadedness, epigastric pain, emesis and diarrhea. CXR reveals, per radiologist, no active cardiopulmonary disease. ED physician has reviewed this radiology report. Test results with no significant abnormalities. In the ED course the patient was given albuterol nebulizer tx, IV fluids, Zofran, Compazine, Solu-Medrol, and Benadryl. Patient will be discharged home. The patient is agreeable with this plan. - Diagnoses Provider Diagnoses: Viral URI Discharge - Sign-Out/Discharge Documenting (check all that apply): Patient Departure - discharge home - Discharge Plan Condition: Stable Disposition: HOME Prescriptions: Ondansetron [Zofran Odt] 4 mg PO TID #20 tab.rapdis MDD 3 Patient Education Materials: Upper Respiratory Infection (ED) Forms: *Work Release Referrals: Jeremias Bolivar MD [Primary Care Provider] - Additional Instructions: return if worse or any new symptoms. Take tylenol for pain or discomfort. follow up with your primary care physician. I sent a prescription for zofran for nausea to your pharmacy on file. drink plenty of fluids. eat chicken noodle soup. - Billing Disposition and Condition Condition: STABLE Disposition: Home - Attestation Statements Document Initiated by Scribe: Yes Documenting Scribe: Shona Mendosa Provider For Whom Margie is Documenting (Include Credential): Stromy Beck MD Scribe Attestation: IShona, scribed for Stormy Beck MD on 01/03/18 at 1708. Scribe Documentation Reviewed: Yes Provider Attestation: The documentation as recorded by the scribe, Shona Mendosa accurately reflects the service I personally performed and the decisions made by me, Stormy Beck MD
--- NOTE | 2018-01-03 09:34 | RAD ---
. HISTORY: cough COMPARISONS: November 29, 2017 VIEWS: 1: frontal AP view of the chest at 9:25 AM FINDINGS: LINES AND TUBES: None. CARDIOMEDIASTINAL SILHOUETTE: The cardiomediastinal silhouette is normal for portable technique. PLEURA: The costophrenic angles are sharp. No pleural abnormalities are noted. LUNG PARENCHYMA: The lungs are clear. ABDOMEN: The upper abdomen is clear. There is no subphrenic gas. BONES AND SOFT TISSUES: No bone or soft tissue abnormalities are noted. IMPRESSION: NO ACTIVE CARDIOPULMONARY DISEASE.
[2018-01-03] MEDS ORDERED: diPHENhydraMINE IV* 50 MG/ML 1 ml VIAL (BENADRYL) IV ONE (09:39)
[2018-01-03] MEDS ORDERED: PROCHLORPERAZINE INJ 5 MG/ML 2 ML VIAL ONE (09:42)
[2018-01-03] MEDS ORDERED: PROCHLORPERAZINE INJ 5 MG/ML 2 ML VIAL IV ONE (09:46)
[2018-01-03 10:19] LABS: ABS Basophils 0.1 10^3/ul (0-0.2); ABS Eosinophils 0.4 10^3/ul (0-0.6); ABS Monocytes 0.8 10^3/ul (0-0.8); ABS Neutrophils 5.6 10^3/ul (1.5-7.7); ABS Nucleated RBC 0 10^3/ul; Eosinophil % 3.7 % (0-6); Hematocrit 40 % (35-47); Hemoglobin 13.5 g/dl (12.0-16.0); Lymphocyte % 30.7 % (25-47); Mean Corpuscular HGB Conc 34 g/dl (31-36); Mean Corpuscular Hemoglobin 30 pg (27-31); Mean Corpuscular Volume 89 fL (80-97); Mean Platelet Volume 10.8 um3 (7.4-10.4); Nucleated Red Blood Cells % 0.2; Platelet Count 154 10^3/ul (150-450); Red Blood Count 4.47 10^6/ul (4.00-5.40); Red Cell Distribution Width 13 % (10.5-15); White Blood Count 9.8 10^3/ul (3.5-10.8)
[2018-01-03 10:37] LABS: EGFR Non-African American 120.5 (>60)
[2018-01-03 12:06] VITALS: BP 119/81
== END 2018-01-03 12:04 | disposition home or self-care (01) ==
LOC: ED 07:46
DX: J06.9 Acute upper respiratory infection, unspecified (principal); R07.81 Pleurodynia; Z88.6 Allergy status to analgesic agent; Z88.5 Allergy status to narcotic agent; Z88.0 Allergy status to penicillin; F17.210 Nicotine dependence, cigarettes, uncomplicated
CPT/HCPCS: 36415; 71045; 80053; 85025; 96374; 96375; 99213; 99283; A9270-GY; G0463; J0780; J1200; J2405; J2930

== ENCOUNTER 2018-01-07 07:19 | Emergency (ER) | payer MEDICAID ==
--- NOTE | 2018-01-07 07:39 | ED ---
Respiratory - HPI Summary HPI Summary: Pt. is a 27-year-old female who presents emergency department for ongoing cough , shortness of breath, vomiting and diarrhea 4 days. Patient was seen in the ER over the weekend, 4 days ago with similar symptoms. She returns today because her symptoms are worse and she feels generalized weakness and fatigue. She also noted h/a from coughing. She notes a history of asthma but does not currently take any medications. Patient states her mom was sick with similar symptoms recently. Symptoms are moderate in severity. No current modifying factors. - History of Current Complaint Chief Complaint: EDFluSymptoms Stated Complaint: GENERAL ILLNESS Time Seen by Provider: 01/07/18 07:36 Hx Obtained From: Patient Pain Intensity: 9 - Allergy/Home Medications Allergies/Adverse Reactions: Allergies Allergy/AdvReac Type Severity Reaction Status Date / Time hydrocodone [From Vicodin] Allergy Rash Verified 01/07/18 07:26 ibuprofen Allergy Swelling Verified 01/07/18 07:26 Of Face,Lips,& Throat Penicillins Allergy Swelling Verified 01/07/18 07:26 Of Face,Lips,& Throat PMH/Surg Hx/FS Hx/Imm Hx Previously Healthy: Yes Endocrine/Hematology History: Denies: Hx Anticoagulant Therapy, Hx Diabetes, Hx Thyroid Disease Cardiovascular History: Denies: Hx Congestive Heart Failure, Hx Deep Vein Thrombosis, Hx Hypertension , Hx Myocardial Infarction, Hx Pacemaker/ICD, Hx Peripheral Vascular Disease Respiratory History: Reports: Hx Asthma, Hx Chronic Bronchitis Denies: Hx Chronic Obstructive Pulmonary Disease (COPD), Hx Lung Cancer, Hx Pneumonia, Hx Pulmonary Embolism GI History: Reports: Other GI Disorders - hx bladder infection Denies: Hx Gall Bladder Disease, Hx Gastrointestinal Bleed, Hx Ulcer, Hx Urosepsis History: Reports: Hx Kidney Infection, Hx Kidney Stones, Hx Renal Disease - Her last kidney/bladder infection was about a year ago., Other Problems/ Disorders - UNABLE TO VOID TODAY Musculoskeletal History: Denies: Hx Arthritis, Hx Rheumatoid Arthritis, Hx Osteoporosis Sensory History: Denies: Hx Cataracts, Hx Contacts or Glasses, Hx Glaucoma, Hx Hearing Aid Opthamlomology History: Denies: Hx Cataracts, Hx Contacts or Glasses, Hx Glaucoma Neurological History: Reports: Hx Migraine Denies: Hx Dementia, Hx Headaches, Hx Seizures, Hx Transient Ischemic Attacks (TIA) Psychiatric History: Reports: Hx Bipolar Disorder - She takes depakote for this. , Other Psychiatric Issues/Disorders - bipolar Denies: Hx Anxiety, Hx Depression, Hx Panic Disorder, Hx Schizophrenia - Surgical History Surgery Procedure, Year, and Place: Tonsillectomy adenoidectomy. C section X4, Tubal Ligation - Immunization History Date of Tetanus Vaccine: Unknown Date of Influenza Vaccine: None Infectious Disease History: No Infectious Disease History: Reports: Hx of Known/Suspected MRSA - ? hx of leg wound Denies: Hx Clostridium Difficile, Hx Hepatitis, Hx Human Immunodeficiency Virus (HIV), Hx Shingles, Hx Tuberculosis, Hx Known/Suspected VRE, Hx Known/ Suspected VRSA, History Other Infectious Disease, Traveled Outside the [place] in Last 30 Days - Family History Known Family History: Positive: Cardiac Disease - mother had minor SC at 46 y/o , Hypertension, Diabetes, Respiratory Disease - Chronic bronchitis, Other - migraines mom had brain CA, depression, anxiety, mom has LUPUS - Social History Occupation: Unemployed Lives: With Family Alcohol Use: Rare Hx Substance Use: No Substance Use Type: Reports: Marijuana Substance Use Comment - Amount & Last Used: 01/02/18 Hx Tobacco Use: Yes Smoking Status (MU): Light Every Day Tobacco Smoker Type: Cigarettes Amount Used/How Often: 5-7 CIG/DAY Length of Time of Smoking/Using Tobacco: 17 years Have You Smoked in the Last Year: Yes Review of Systems Constitutional: Negative Negative: Fever, Chills Eyes: Negative Positive: Sore Throat Cardiovascular: Negative Positive: Shortness Of Breath, Cough Positive: Vomiting, Diarrhea, Nausea. Negative: Abdominal Pain Genitourinary: Negative Positive: Myalgia Skin: Negative Positive: Headache All Other Systems Reviewed And Are Negative: Yes Physical Exam Triage Information Reviewed: Yes Vital Signs On Initial Exam: Initial Vitals Temp Pulse Resp BP Pulse Ox 97.7 F 86 20 143/90 97 01/07/18 07:21 01/07/18 07:21 01/07/18 07:21 01/07/18 07:21 01/07/18 07:21 Vital Signs Reviewed: Yes Appearance: Positive: Well-Appearing - Pt. sitting up in bed in NAD. Bretahing easily on RA. Skin: Positive: Warm, Dry Head/Face: Positive: Normal Head/Face Inspection Eyes: Positive: Normal, EOMI, CODY, Conjunctiva Clear ENT: Positive: Pharyngeal erythema, TMs normal. Negative: Tonsillar swelling, Tonsillar exudate Neck: Positive: Supple Respiratory/Lung Sounds: Positive: Other - Diminished breath sounds in bases. Mild expiratory wheeze. No accessory muscle use. Cardiovascular: Positive: Normal, RRR Abdomen Description: Positive: Nontender, Soft Neurological: Positive: Normal, CN Intact II-III Psychiatric: Positive: Affect/Mood Appropriate Diagnostics - Vital Signs Vital Signs Temp Pulse Resp BP Pulse Ox 01/07/18 07:21 97.7 F 86 20 143/90 97 - Laboratory Result Diagrams: 01/07/18 07:55 01/07/18 07:55 Lab Statement: Any lab studies that have been ordered have been reviewed, and results considered in the medical decision making process. Disposition - Course Course Of Treatment: Pt. presenting for ongoing cough, SOB, V/D. Pt. is afebrile with stable VS. O2 saturation is 96% on RA which is normal. Patient was given IV fluids, Tylenol and DuoNeb treatment. Basic labs chest x-ray ordered. Chest x-ray is negative for acute findings, reading per radiology. Blood work is unremarkable. Patient has had no vomiting in the emergency department and is tolerating by mouth fluids. On reexam patient is moving air better. She states she is still feeling poorly but is resting comfortably. Suspect viral etiology. Prescriptions given for inhaler, Tessalon Perles, prednisone and Zofran. Advised to call PCP today for close follow up appointment. Increase fluids and rest. Return to the ER symptoms change or worsen. Patient understands and agrees with plan. - Differential Dx - Cardiopulmonary Differential Diagnoses - Cardiopulmonary: Bronchitis, Influenza, Lower Resp Infection - Diagnoses Provider Diagnoses: Viral syndrome, Bronchospasm Discharge - Sign-Out/Discharge Documenting (check all that apply): Patient Departure - Discharge Plan Condition: Good Disposition: HOME Prescriptions: Albuterol HFA INHALER* [Ventolin HFA Inhaler*] 2 puff INH Q4H PRN #1 mdi PRN Reason: Wheezing Benzonatate CAP* [Tessalon 100 MG CAP*] 100 mg PO TID #12 cap Ondansetron TAB* [Zofran 4 MG Tab*] 4 mg PO Q6H PRN #12 tab PRN Reason: Nausea RX: predniSONE TAB* [Deltasone TAB*] 50 mg PO DAILY #5 tab Patient Education Materials: Viral Syndrome (ED), Bronchospasm (ED) Forms: *Work Release Referrals: [facility] [Outside] Jeremias Bolivar MD [Primary Care Provider] - Additional Instructions: Call PCP today for a close follow up appointment Take medication as directed Increase fluids and rest Return to ER if symptoms change or worsen - Billing Disposition and Condition Condition: GOOD Disposition: Home
[2018-01-07] MEDS ORDERED: Albuterol/Ipratropium NEB.SOL* Albuterol 2.5 MG/Ipratropium 0.5 MG 3 ML INH ONE (07:48)
[2018-01-07] MEDS ORDERED: Ondansetron INJ* 2 MG/ML VIAL IV ONE (07:48)
[2018-01-07] MEDS ORDERED: NS 0.9% 1000 ML* 1,000 ML IV ONE (07:48)
[2018-01-07] MEDS ORDERED: Acetaminophen TAB* 325 MG PO ONE (07:48)
[2018-01-07 08:04] LABS: ABS Basophils 0.1 10^3/ul (0-0.2); ABS Eosinophils 0.5 10^3/ul (0-0.6); ABS Lymphocytes 3.5 10^3/ul (1.0-4.8); ABS Monocytes 0.7 10^3/ul (0-0.8); ABS Neutrophils 6.5 10^3/ul (1.5-7.7); ABS Nucleated RBC 0 10^3/ul; Eosinophil % 4.8 % (0-6); Hematocrit 43 % (35-47); Hemoglobin 14.4 g/dl (12.0-16.0); Mean Corpuscular HGB Conc 34 g/dl (31-36); Mean Corpuscular Hemoglobin 30 pg (27-31); Mean Corpuscular Volume 90 fL (80-97); Nucleated Red Blood Cells % 0; Platelet Count 188 10^3/ul (150-450); Red Blood Count 4.79 10^6/ul (4.00-5.40); Red Cell Distribution Width 12 % (10.5-15); White Blood Count 11.2 10^3/ul (3.5-10.8)
[2018-01-07 08:22] LABS: EGFR Non-African American 136.4 (>60)
--- NOTE | 2018-01-07 08:35 | RAD ---
INDICATION: Cough. COMPARISON: Comparison is made with a prior study from January 03, 2018. TECHNIQUE: Dual-energy PA and lateral views of the chest were obtained. FINDINGS: The heart is within normal limits in size. Mediastinal and hilar contours appear within normal limits. The lungs are clear. No pleural effusion is present. IMPRESSION: NO EVIDENCE FOR ACTIVE CARDIOPULMONARY DISEASE.
[2018-01-07 10:05] VITALS: BP 118/66
== END 2018-01-07 10:20 | disposition home or self-care (01) ==
LOC: ED 07:19
DX: B34.9 Viral infection, unspecified (principal); J98.01 Acute bronchospasm; F17.210 Nicotine dependence, cigarettes, uncomplicated; J45.909 Unspecified asthma, uncomplicated; F31.9 Bipolar disorder, unspecified; Z88.0 Allergy status to penicillin
CPT/HCPCS: 36415; 71046; 80053; 84702; 85025; 96361; 96374; 99283; A9270-GY; J2405

== ENCOUNTER → 2018-04-15 22:35 | Emergency (ER) | payer MEDICAID, OTHER ==
[~2018-04-15 22:35] MED LIST changes: -Morphine INJ* 4 MG/ML 1 ML CARPUJECT IV ONE; +Morphine VIAL* 10 MG/ML 1 ML VIAL IV ONE; -NS 0.9% 1000 ML* 1,000 ML IV ONE; +NS 0.9% 1000 ML** 1,000 ML IV ONE; +Ondansetron INJ* 2 MG/ML VIAL IV ONE; +Sulfamethox/Trimethoprim DS 800/160* TAB PO ONE
[2018-04-15 23:30] LABS: ABS Basophils 0.1 10^3/ul (0-0.2); ABS Eosinophils 0.3 10^3/ul (0-0.6); ABS Lymphocytes 3.6 10^3/ul (1.0-4.8); ABS Monocytes 0.5 10^3/ul (0-0.8); ABS Neutrophils 5.1 10^3/ul (1.5-7.7); ABS Nucleated RBC 0 10^3/ul; Eosinophil % 3.4 %; Hematocrit 39 % (35-47); Hemoglobin 13.4 g/dl (12.0-16.0); Lymphocyte % 37.6 %; Mean Corpuscular HGB Conc 34 g/dl (31-36); Mean Corpuscular Hemoglobin 31 pg (27-31); Mean Corpuscular Volume 90 fL (80-97); Mean Platelet Volume 11.1 fL (7.4-10.4); Nucleated Red Blood Cells % 0; Platelet Count 180 10^3/ul (150-450); Red Blood Count 4.31 10^6/ul (4.00-5.40); Red Cell Distribution Width 13 % (10.5-15); White Blood Count 9.5 10^3/ul (3.5-10.8)
[2018-04-15 23:47] LABS: ALT 10 U/L (7-52); AST 11 U/L (13-39); Albumin 3.7 g/dL (3.2-5.2); Albumin/Globulin Ratio 1.6 (1-3); Alkaline Phosphatase 75 U/L (34-104); Blood Urea Nitrogen 9 mg/dL (6-24); C Reactive Protein 2.72 mg/L (<8.01); CO2 Carbon Dioxide 23 mmol/L (22-32); Calcium 8.7 mg/dL (8.6-10.3); EGFR Non-African American 117.4 (>60); Globulin 2.3 g/dL (2-4); Glucose 141 mg/dL (70-100); Potassium 3.6 mmol/L (3.5-5.0); Sodium 140 mmol/L (135-145)
[2018-04-15 23:54] LABS: HCG Pregnancy < 0.60 mIU/mL
[2018-04-15 23:55] LABS: Anion Gap 5 mmol/L (2-11); Chloride 112 mmol/L (101-111)
--- NOTE | 2018-04-16 00:31 | ED ---
Abdominal Pain/Female - HPI Summary HPI Summary: This patient is a 28 year old female presenting to the ED with a cc of abd pain that began on 04-14-18. She states the pain is waxing and waning and [facility] received a CT and dx with gastroenteritis. She rates the pain 10/10 in severity and believes eating makes it worse. She also / co n/v/d and pain radiating into her lower back. She denies GERD, indigestion, and hx of appendectomy. - History of Current Complaint Chief Complaint: EDAbdPain Stated Complaint: ABD PAIN Time Seen by Provider: 04/16/18 00:16 Hx Obtained From: Patient Hx Last Menstrual Period: 11/13/17 Onset/Duration: Lasting Days, Still Present Timing: Constant Severity Initially: Severe Severity Currently: Severe Pain Intensity: 10 Pain Scale Used: 0-10 Numeric Location: Discrete At: RLQ Radiates: Yes Radiates to: Back Associated Signs and Symptoms: Positive: Back Pain, Nausea, Vomiting, Diarrhea Allergies/Adverse Reactions: Allergies Allergy/AdvReac Type Severity Reaction Status Date / Time ibuprofen Allergy Swelling Verified 04/15/18 22:44 Of Face,Lips,& Throat Penicillins Allergy Swelling Verified 04/15/18 22:44 Of Face,Lips,& Throat PMH/Surg Hx/FS Hx/Imm Hx Endocrine/Hematology History: Denies: Hx Anticoagulant Therapy, Hx Diabetes, Hx Thyroid Disease Cardiovascular History: Denies: Hx Congestive Heart Failure, Hx Deep Vein Thrombosis, Hx Hypertension , Hx Myocardial Infarction, Hx Pacemaker/ICD, Hx Peripheral Vascular Disease Respiratory History: Reports: Hx Asthma, Hx Chronic Bronchitis Denies: Hx Chronic Obstructive Pulmonary Disease (COPD), Hx Lung Cancer, Hx Pneumonia, Hx Pulmonary Embolism GI History: Reports: Other GI Disorders - hx bladder infection Denies: Hx Gall Bladder Disease, Hx Gastrointestinal Bleed, Hx Ulcer, Hx Urosepsis History: Reports: Hx Kidney Infection, Hx Kidney Stones, Hx Renal Disease - Her last kidney/bladder infection was about a year ago., Other Problems/ Disorders - UNABLE TO VOID TODAY Musculoskeletal History: Denies: Hx Arthritis, Hx Rheumatoid Arthritis, Hx Osteoporosis Sensory History: Denies: Hx Cataracts, Hx Contacts or Glasses, Hx Glaucoma, Hx Hearing Aid Opthamlomology History: Denies: Hx Cataracts, Hx Contacts or Glasses, Hx Glaucoma Neurological History: Reports: Hx Migraine Denies: Hx Dementia, Hx Headaches, Hx Seizures, Hx Transient Ischemic Attacks (TIA) Psychiatric History: Reports: Hx Bipolar Disorder - She takes depakote for this. , Other Psychiatric Issues/Disorders - bipolar Denies: Hx Anxiety, Hx Depression, Hx Panic Disorder, Hx Schizophrenia - Surgical History Surgery Procedure, Year, and Place: Tonsillectomy adenoidectomy. C section X4, Tubal Ligation - Immunization History Date of Tetanus Vaccine: Unknown Date of Influenza Vaccine: None Infectious Disease History: No Infectious Disease History: Reports: Hx of Known/Suspected MRSA - ? hx of leg wound Denies: Hx Clostridium Difficile, Hx Hepatitis, Hx Human Immunodeficiency Virus (HIV), Hx Shingles, Hx Tuberculosis, Hx Known/Suspected VRE, Hx Known/ Suspected VRSA, History Other Infectious Disease, Traveled Outside the [place] in Last 30 Days - Family History Known Family History: Positive: Cardiac Disease - mother had minor [place] at 46 y/o , Hypertension, Diabetes, Respiratory Disease - Chronic bronchitis, Other - migraines mom had brain CA, depression, anxiety, mom has LUPUS - Social History Alcohol Use: Rare Hx Substance Use: No Substance Use Type: Reports: Marijuana Substance Use Comment - Amount & Last Used: 01/02/18 Hx Tobacco Use: Yes Smoking Status (MU): Light Every Day Tobacco Smoker Type: Cigarettes Amount Used/How Often: 5-7 CIG/DAY Length of Time of Smoking/Using Tobacco: 17 years Have You Smoked in the Last Year: Yes Review of Systems Negative: Fever Gastrointestinal: Negative - GERD, indigestion Positive: Abdominal Pain, Vomiting, Diarrhea, Nausea All Other Systems Reviewed And Are Negative: Yes Physical Exam - Summary Physical Exam Summary: Appearance: Well appearing, no pain distress Skin: warm, dry, reflects adequate perfusion Head/face: normal Eyes: EOMI, CODY ENT: normal Neck: supple, non-tender Respiratory: CTA, breath sounds present Cardiovascular: RRR, pulses symmetrical Abdomen: TTP in RLQ, soft Musculoskeletal: normal, strength/ROM intact Neuro: normal, sensory motor intact, A&Ox3 Triage Information Reviewed: Yes Vital Signs On Initial Exam: Initial Vitals Temp Pulse Resp BP Pulse Ox 98.5 F 73 18 138/98 98 04/15/18 22:40 04/15/18 22:40 04/15/18 22:40 04/15/18 22:40 04/15/18 22:40 Vital Signs Reviewed: Yes Diagnostics - Vital Signs Vital Signs Temp Pulse Resp BP Pulse Ox 04/15/18 22:40 98.5 F 73 18 138/98 98 - Laboratory Lab Results: Lab Results 04/15/18 04/15/18 Range/Units 23:24 23:24 WBC 9.5 (3.5-10.8) 10^3/ul RBC 4.31 (4.00-5.40) 10^6/ul Hgb 13.4 (12.0-16.0) g/dl Hct 39 (35-47) % MCV 90 (80-97) fL MCH 31 (27-31) pg MCHC 34 (31-36) g/dl RDW 13 (10.5-15) % Plt Count 180 (150-450) 10^3/ul MPV 11.1 H (7.4-10.4) fL Neut % (Auto) 53.0 % Lymph % (Auto) 37.6 % [place] % (Auto) 5.5 % Eos % (Auto) 3.4 % Baso % (Auto) 0.5 % Absolute Neuts (auto) 5.1 (1.5-7.7) 10^3/ul Absolute Lymphs (auto) 3.6 (1.0-4.8) 10^3/ul Absolute Monos (auto) 0.5 (0-0.8) 10^3/ul Absolute Eos (auto) 0.3 (0-0.6) 10^3/ul Absolute Basos (auto) 0.1 (0-0.2) 10^3/ul Absolute Nucleated RBC 0 10^3/ul Nucleated RBC % 0 Sodium 140 (135-145) mmol/L Potassium 3.6 (3.5-5.0) mmol/L Chloride 112 H (101-111) mmol/L Carbon Dioxide 23 (22-32) mmol/L Anion Gap 5 (2-11) mmol/L BUN 9 (6-24) mg/dL Creatinine 0.60 (0.51-0.95) mg/dL Est GFR ( Amer) 142.0 (>60) Est GFR (Non-Af Amer) 117.4 (>60) BUN/Creatinine Ratio 15.0 (8-20) Glucose 141 H (70-100) mg/dL Calcium 8.7 (8.6-10.3) mg/dL Total Bilirubin 0.30 (0.2-1.0) mg/dL AST 11 L (13-39) U/L ALT 10 (7-52) U/L Alkaline Phosphatase 75 (34-104) U/L C-Reactive Protein 2.72 (<8.01) mg/L Total Protein 6.0 L (6.4-8.9) g/dL Albumin 3.7 (3.2-5.2) g/dL Globulin 2.3 (2-4) g/dL Albumin/Globulin Ratio 1.6 (1-3) Lipase 23 (11.0-82.0) U/L Beta HCG, Quant < 0.60 mIU/mL Result Diagrams: 04/15/18 23:24 04/15/18 23:24 Lab Statement: Any lab studies that have been ordered have been reviewed, and results considered in the medical decision making process. Abdominal Pain Fem Course/Dx - Course Course Of Treatment: This patient is a 28 year old female presenting to the ED with a cc of abd pain that began on 04-14-18. bloodwork and UA obtained. The CT from [place] was a negative CT. Pt still c/o abd pain although she refused ct with contrast here today. Abx were given for uti and if sx get worse she will return. Pt will f/u with pcp and was given an rx for bactrim - Diagnoses Differential Diagnosis: Positive: Appendicitis, Diverticulitis, Renal Colic, Urinary Tract Infection Provider Diagnoses: Abdominal pain, UTI (urinary tract infection) Discharge - Sign-Out/Discharge Documenting (check all that apply): Patient Departure Patient Received Moderate/Deep Sedation with Procedure: No - Discharge Plan Condition: Stable Disposition: HOME Prescriptions: Sulfamethox/Trimethoprim DS* [Bactrim DS 800/160 TAB*] 1 tab PO BID #10 tab traMADol TAB* [Ultram*] 50 mg PO Q12H PRN #9 tab MDD 3 PRN Reason: Pain Patient Education Materials: Urinary Tract Infection in Women (DC) Referrals: Jeremias Bolivar MD [Primary Care Provider] - Additional Instructions: Follow up with your primary care physician in 1-3 days. RETURN TO THE EMERGENCY DEPARTMENT FOR CHANGING OR WORSENING SYMPTOMS. - Billing Disposition and Condition Condition: STABLE Disposition: Home - Attestation Statements Document Initiated by Telmaibalana: Yes Documenting Scribe: Fox Cohen Provider For Whom Margie is Documenting (Include Credential): Jesus Davis MD Scribe Attestation: Fox Mckinney, scribed for Jesus Davis MD on 04/16/18 at 0223. Scribe Documentation Reviewed: Yes Provider Attestation: The documentation as recorded by the Fox chowdary accurately reflects the service I personally performed and the decisions made by Jesus shelton MD Status of Scribe Document: Viewed
[2018-04-16 01:17] LABS: Urine Appearance Cloudy; Urine Bacteria Absent (Absent); Urine Bilirubin Negative (Negative); Urine Blood Negative (Negative); Urine Color Yellow; Urine Glucose Negative (Negative); Urine Ketones Negative (Negative); Urine Nitrite Negative (Negative); Urine Protein Negative (Negative); Urine Red Blood Cell Trace(0-2/hpf) (Absent); Urine Specific Gravity 1.025 (1.010-1.030); Urine Squamous Epithelial Cell Present (Absent); Urine Urobilinogen Positive (Negative); Urine White Blood Cell 2+(11-20/hpf) (Absent)
[2018-04-16 02:23] VITALS: BP 120/76
== END | disposition home or self-care (01) ==
LOC: ED 22:35
DX: R10.9 Unspecified abdominal pain (principal); N39.0 Urinary tract infection, site not specified; M54.9 Dorsalgia, unspecified; R11.2 Nausea with vomiting, unspecified; R19.7 Diarrhea, unspecified; Z88.0 Allergy status to penicillin; F17.210 Nicotine dependence, cigarettes, uncomplicated
CPT/HCPCS: 36415; 80053; 81003; 81015; 83690; 84702; 85025; 86140; 87086; 96361; 96374; 96375; 99283; A9270-GY; J2270; J2405

== ENCOUNTER 2018-06-07 11:34 | Emergency (ER) | payer OTHER ==
[2018-06-07 11:49] VITALS: BP 121/69
--- NOTE | 2018-06-07 11:58 | UC ---
Back Pain HPI - HPI Summary HPI Summary: 28 yo female presents with back pain. 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 She needed assistance getting to her feet due to pain. She came directly to . She has not taken anything OTC for her discomfort. She says that most of the pain is in her central lower back that is "spasming" upward and radiating into her right buttock. Feels that her right leg is weak and has decreased sensation. Bending, sitting, standing straight up, or walking make her pain worse. Lying on her left side with her legs flexed makes her pain better. She denies saddle anesthesia, dysuria, loss of bowel/bladder control, abdominal pain, n/v, or hx of back pain or injuries. - History of Current Complaint Chief Complaint: UCBackPain Stated Complaint: BACK INJURY Time Seen by Provider: 06/07/18 11:57 Hx Obtained From: Patient Hx Last Menstrual Period: 04/2018 Onset/Duration: Sudden Onset Timing: Constant Severity Initially: Severe Severity Currently: Severe Pain Intensity: 10 Pain Scale Used: 0-10 Numeric Aggravating Factor(s): Movement, Lifting, Bending, Walking Alleviating Factor(s): Position - Allergies/Home Medications Allergies/Adverse Reactions: Allergies Allergy/AdvReac Type Severity Reaction Status Date / Time ibuprofen Allergy Swelling Verified 06/07/18 11:49 Of Face,Lips,& Throat Penicillins Allergy Swelling Verified 06/07/18 11:49 Of Face,Lips,& Throat Home Medications: Home Medications Acetaminophen [APAP] 650 mg PO ONCE PRN 06/07/18 [History Confirmed 06/07/18] PMH/Surg Hx/FS Hx/Imm Hx - Additional Past Medical History Additional PMH: None Other History Of: Negative For: HIV, Hepatitis B, Hepatitis C, Anticoagulant Therapy - Surgical History Surgical History: Yes Surgery Procedure, Year, and Place: Tonsillectomy adenoidectomy. C section X4, Tubal Ligation - Family History Known Family History: Positive: Cardiac Disease - mother had minor [place] at 46 y/o , Hypertension, Diabetes, Respiratory Disease - Chronic bronchitis, Other - migraines mom had brain CA, depression, anxiety, mom has LUPUS - Social History Occupation: Employed Full-time Lives: With Family Alcohol Use: Occasionally Substance Use Type: Marijuana Substance Use Comment - Amount & Last Used: 01/02/18 Smoking Status (MU): Light Every Day Tobacco Smoker Type: Cigarettes Amount Used/How Often: 5-7 CIG/DAY Length of Time of Smoking/Using Tobacco: 17 years Have You Smoked in the Last Year: Yes Household Exposure Type: Cigarettes - Immunization History Most Recent Influenza Vaccination: declined for this year Most Recent Tetanus Shot: UTD Most Recent Pneumonia Vaccination: none Review of Systems All Other Systems Reviewed And Are Negative: Yes Constitutional: Positive: Negative Skin: Positive: Negative Respiratory: Positive: Negative Cardiovascular: Positive: Negative Gastrointestinal: Positive: Negative Genitourinary: Positive: Negative Neurovascular: Positive: Negative Musculoskeletal: Positive: Other: - Low back pain Neurological: Positive: Negative Psychological: Positive: Negative Physical Exam - Summary Physical Exam Summary: GENERAL: NAD. Lying on exam table on left side with knee flexed. SKIN: No rashes, sores, lesions, or open wounds. NECK: Supple. FROM. Nontender. No lymphadenopathy. CHEST: CTAB. No r/r/w. No accessory muscle use. Breathing comfortably and in no distress. CV: RRR. Without m/r/g. Pulses intact. Cap refill <2seconds MSK: TTP over lumbar paraspinal muscles and right SI. Pain with flexion and extension of spine. Positive SLR on right with pain radiation into right posterior leg. Strength 5/5 B/L LEs including dorsiflexion and plantar flexion. FROM B/L LEs. No edema. NEURO: Alert. Sensations intact B/L LEs L3-S1, but reports decreased on right along L4-L5. Reflexes intact PSYCH: Age appropriate behavior. Triage Information Reviewed: Yes Vital Signs: Initial Vital Signs Temp 98.1 F 06/07/18 11:45 Pulse 77 06/07/18 11:45 Resp 18 06/07/18 11:45 BP 121/69 06/07/18 11:45 Pulse Ox 99 06/07/18 11:45 Vital Signs Reviewed: Yes Back Pain Course/Dx - Course Course Of Treatment: XR: IMPRESSION: No fracture of the lumbar spine. Suspect acute muscle strain/spasm vs sciatica vs lumbar disc pathology. She is having no red flag symptoms at this time, therefore she was given toradol IM in the clinic. Will rx for flexeril and prednisone for her pain. Referral to PT and to Dr. Ash for her work related injury. Will take her off work for the rest of the week. Rest, ice/heat, and take tylenol for discomfort. - Differential Dx/Diagnosis Provider Diagnosis: Low back pain potentially associated with radiculopathy Discharge - Sign-Out/Discharge Documenting (check all that apply): Patient Departure All imaging exams completed and their final reports reviewed: Yes - Discharge Plan Condition: Stable Disposition: HOME Prescriptions: Cyclobenzaprine TAB* [Flexeril 10 MG TAB*] 10 mg PO TID PRN #21 tab PRN Reason: Pain predniSONE TAB* [Deltasone 20 MG TAB*] 20 mg PO DAILY #15 tab Patient Education Materials: Acute Low Back Pain (ED), Lower Back Exercises (ED ) Forms: *Work Release Referrals: No Primary Care Phys,NOPCP [Primary Care Provider] - Fly Ash MD [Medical Doctor] - As Soon As Possible Additional Instructions: If you develop a fever, shortness of breath, chest pain, new or worsening symptoms - please call your PCP or go to the ED. Your X-Ray today was normal 1) Rest and apply ice/heat to your back 2) May take tylenol for your discomfort in addition to the flexeril and prednisone for your pain 3) Please call Dr. Ash at the number below to schedule a follow up appointment as soon as possible regarding your work related injury - Billing Disposition and Condition Condition: STABLE Disposition: Home
[2018-06-07] MEDS ORDERED: Ketorolac INJ* 60 MG/2 ML VIAL IM ONE (12:33)
== END 2018-06-07 12:55 | disposition home or self-care (01) ==
LOC: UCEAST 11:34
DX: M54.5 Low back pain (principal); M54.16 Radiculopathy, lumbar region; F17.210 Nicotine dependence, cigarettes, uncomplicated; Z88.0 Allergy status to penicillin; Z88.8 Allergy status to other drugs, medicaments and biological substances
CPT/HCPCS: 72110; 96372; 99212; G0463; J1885

== ENCOUNTER 2018-07-21 09:54 | Emergency (ER) | payer OTHER ==
--- NOTE | 2018-07-21 09:58 | ED ---
Lower Extremity - HPI Summary HPI Summary: Patient is a 28-year-old female presenting to the ED with a mechanical fall. She states [place], falling forward injuring her left wrist and rolling her right ankle. She is also endorsing some pain over her right hip, but remains ambulatory. She states she has multiple falls with ankle sprains in the past. Denies any significant health history. Patient denies any alcohol or drug use on this date. Symptoms are worsened with ambulation, better with rest. She denies any weakness the bilateral lower extremities. Denies any back pain, did not hit her head and denies any LOC. - History of Current Complaint Stated Complaint: FELL PER EMS Time Seen by Provider: 07/21/18 09:56 Hx Obtained From: Patient Hx Last Menstrual Period: 04/2018 Mechanism Of Injury: Twisted Onset of Pain: Hours Onset/Duration: Hours Severity Initially: Mild Severity Currently: Mild Pain Scale Used: 0-10 Numeric Timing: Constant Location: Is Discrete @ - left wrist and right ankle Character Of Pain: Aching Associated Signs And Symptoms: Positive: Swelling - right ankle - lateral portion. Negative: Redness, Bruising Aggravating Factor(s): Standing, Ambulation Alleviating Factor(s): Rest Able to Bear Weight: No - Risk Factors Gout Risk Factors: Negative DVT Risk Factors: Negative Septic Arthritis Risk Factor: Negative - Allergies/Home Medications Allergies/Adverse Reactions: Allergies Allergy/AdvReac Type Severity Reaction Status Date / Time hydrocodone [From Vicodin] Allergy Hives/Diff. Verified 07/21/18 10:05 Breathing/I tching ibuprofen Allergy Swelling Verified 07/21/18 10:05 Of Face,Lips,& Throat Penicillins Allergy Swelling Verified 07/21/18 10:05 Of Face,Lips,& Throat Home Medications: Home Medications Gabapentin 600 mg PO TID 07/21/18 [History Confirmed 07/21/18] Prazosin HCl 1 mg PO DAILY 07/21/18 [History Confirmed 07/21/18] PMH/Surg Hx/FS Hx/Imm Hx Previously Healthy: Yes Endocrine/Hematology History: Denies: Hx Anticoagulant Therapy, Hx Diabetes, Hx Thyroid Disease Cardiovascular History: Denies: Hx Congestive Heart Failure, Hx Deep Vein Thrombosis, Hx Hypertension , Hx Myocardial Infarction, Hx Pacemaker/ICD, Hx Peripheral Vascular Disease Respiratory History: Reports: Hx Asthma, Hx Chronic Bronchitis Denies: Hx Chronic Obstructive Pulmonary Disease (COPD), Hx Lung Cancer, Hx Pneumonia, Hx Pulmonary Embolism GI History: Reports: Other GI Disorders - hx bladder infection Denies: Hx Gall Bladder Disease, Hx Gastrointestinal Bleed, Hx Ulcer, Hx Urosepsis History: Reports: Hx Kidney Infection, Hx Kidney Stones, Hx Renal Disease - Her last kidney/bladder infection was about a year ago., Other Problems/ Disorders - UNABLE TO VOID TODAY Musculoskeletal History: Denies: Hx Arthritis, Hx Rheumatoid Arthritis, Hx Osteoporosis Sensory History: Denies: Hx Cataracts, Hx Contacts or Glasses, Hx Glaucoma, Hx Hearing Aid Opthamlomology History: Denies: Hx Cataracts, Hx Contacts or Glasses, Hx Glaucoma Neurological History: Reports: Hx Migraine Denies: Hx Dementia, Hx Headaches, Hx Seizures, Hx Transient Ischemic Attacks (TIA) Psychiatric History: Reports: Hx Bipolar Disorder - She takes depakote for this. , Other Psychiatric Issues/Disorders - bipolar Denies: Hx Anxiety, Hx Depression, Hx Panic Disorder, Hx Schizophrenia - Surgical History Surgery Procedure, Year, and Place: Tonsillectomy adenoidectomy. C section X4, Tubal Ligation - Immunization History Date of Tetanus Vaccine: Unknown Date of Influenza Vaccine: None Hx Pertussis Vaccination: No Immunizations Up to Date: Yes Infectious Disease History: Reports: Hx of Known/Suspected MRSA - ? hx of leg wound Denies: Hx Clostridium Difficile, Hx Hepatitis, Hx Human Immunodeficiency Virus (HIV), Hx Shingles, Hx Tuberculosis, Hx Known/Suspected VRE, Hx Known/ Suspected VRSA, History Other Infectious Disease - Family History Known Family History: Positive: Cardiac Disease - mother had minor [place] at 46 y/o , Hypertension, Diabetes, Respiratory Disease - Chronic bronchitis, Other - migraines mom had brain CA, depression, anxiety, mom has LUPUS - Social History Occupation: Employed Part-time Lives: Alone Alcohol Use: Occasionally Hx Substance Use: No Substance Use Type: Reports: Marijuana Substance Use Comment - Amount & Last Used: 01/02/18 Hx Tobacco Use: Yes Smoking Status (MU): Light Every Day Tobacco Smoker Type: Cigarettes Amount Used/How Often: 5-7 CIG/DAY Length of Time of Smoking/Using Tobacco: 17 years Have You Smoked in the Last Year: Yes Review of Systems Negative: Fever, Chills, Fatigue, Skin Diaphoresis Negative: Palpitations, Chest Pain Genitourinary: Negative Positive: no symptoms reported, see HPI Positive: Arthralgia - right ankle and left wrist pain, Myalgia Skin: Negative All Other Systems Reviewed And Are Negative: Yes Physical Exam Triage Information Reviewed: Yes Vital Signs Reviewed: Yes Appearance: Positive: Well-Appearing, Well-Nourished Skin: Positive: Skin Color Reflects Adequate Perfusion Head/Face: Positive: Normal Head/Face Inspection Eyes: Positive: CODY, Conjunctiva Clear Neck: Positive: Supple, No Lymphadenopathy Respiratory/Lung Sounds: Positive: Clear to Auscultation, Breath Sounds Present Cardiovascular: Positive: Pulses are Symmetrical in both Upper and Lower Extremities Musculoskeletal: Positive: Strength/ROM Intact, Pain @ - right lateral ankle on palpation, flexion and extension. left wrist with no pain to flexion or extension. 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 She is endorsing left wrist and right ankle pain. On physical examination, she has good media assistant strength in the bilateral upper extremities and is able to flex and extend at the bilateral wrists without discomfort. There is some slight swelling to the right lateral ankle without ecchymosis or abrasions. X-ray obtained of the left wrist and right ankle. These are read as normal. She is also c/o hip pain, but states this is a contusion and can't pull her pants down to show me. On palpation, she offers no complaints of the lateral hip. Log roll without complaints. Offered ibuprofen, but patient states she is allergic. Offered crutches, however she states she is unable to use these. She becomes very frustrated and states she would like to speak with "the director of the hospital." I have asked the patient if I can do anything to help her with her frustrations, she declines any more help. I have offered her an Cedric wrap and a gel splint for her ankle, however she would only like Cedric wrap. Cedric wrapped the right ankle. She is okay for discharge at this time. She is stable. Refuses to ambulate. - Diagnoses Provider Diagnoses: Ankle sprain, Left wrist pain, Contusion of right hip Discharge - Sign-Out/Discharge Documenting (check all that apply): Patient Departure Patient Received Moderate/Deep Sedation with Procedure: No - Discharge Plan Condition: Stable Disposition: HOME Patient Education Materials: Ankle Sprain (ED) Referrals: No Primary Care Phys,NOPCP [Primary Care Provider] - Additional Instructions: Please follow up as needed if symptoms persist Ice to the area Tylenol 650mg three times daily Elevate when possible Keep the cedric bandage applied - Billing Disposition and Condition Condition: STABLE Disposition: Home
[2018-07-21 11:33] VITALS: BP 149/90
== END 2018-07-21 11:28 | disposition home or self-care (01) ==
LOC: ED 09:54
DX: S93.401A Sprain of unspecified ligament of right ankle, initial encounter (principal); M25.532 Pain in left wrist; S70.01XA Contusion of right hip, initial encounter; W10.9XXA Fall (on) (from) unspecified stairs and steps, initial encounter; Y93.01 Activity, walking, marching and hiking; Y92.240 Courthouse as the place of occurrence of the external cause; J45.909 Unspecified asthma, uncomplicated; F31.9 Bipolar disorder, unspecified; F17.210 Nicotine dependence, cigarettes, uncomplicated; Z88.5 Allergy status to narcotic agent; Z88.6 Allergy status to analgesic agent; Z88.0 Allergy status to penicillin
CPT/HCPCS: 99282

== ENCOUNTER 2018-09-06 15:38 | Emergency (ER) | payer OTHER ==
--- NOTE | 2018-09-06 16:19 | ED ---
Adult Trauma - HPI Summary HPI Summary: Patient is a 28-year-old female who presents emergency department for evaluation after falling down 8 steps inside house. Patient states she was coming down steps when her left ankle gave out and she fell and landed on the bottom. Patient states she struck her head and is unsure if she lost consciousness. Patient complains of headache, posterior neck pain, low back pain and left ankle pain. She also notes significant headache in injury vision. Patient denies numbness, tingling or weakness in extremities, denies chest pain or shortness of breath or abdominal pain. Symptoms are moderate in severity. Movement makes symptoms worse. Rest makes symptoms better. No significant past medical history. - History of Current Complaint Chief Complaint: EDFall Stated Complaint: FALL INJURY PER EMS Time Seen by Provider: 09/06/18 15:56 Hx Obtained From: Patient Hx Last Menstrual Period: 04/2018 Pain Intensity: 10 - Allergy/Home Medications Allergies/Adverse Reactions: Allergies Allergy/AdvReac Type Severity Reaction Status Date / Time hydrocodone [From Vicodin] Allergy Hives/Diff. Verified 07/21/18 10:05 Breathing/I tching ibuprofen Allergy Swelling Verified 07/21/18 10:05 Of Face,Lips,& Throat Penicillins Allergy Swelling Verified 07/21/18 10:05 Of Face,Lips,& Throat PMH/Surg Hx/FS Hx/Imm Hx Previously Healthy: Yes Endocrine/Hematology History: Denies: Hx Anticoagulant Therapy, Hx Diabetes, Hx Thyroid Disease Cardiovascular History: Denies: Hx Congestive Heart Failure, Hx Deep Vein Thrombosis, Hx Hypertension , Hx Myocardial Infarction, Hx Pacemaker/ICD, Hx Peripheral Vascular Disease Respiratory History: Reports: Hx Asthma, Hx Chronic Bronchitis Denies: Hx Chronic Obstructive Pulmonary Disease (COPD), Hx Lung Cancer, Hx Pneumonia, Hx Pulmonary Embolism GI History: Reports: Other GI Disorders - hx bladder infection Denies: Hx Gall Bladder Disease, Hx Gastrointestinal Bleed, Hx Ulcer, Hx Urosepsis History: Reports: Hx Kidney Infection, Hx Kidney Stones, Hx Renal Disease - Her last kidney/bladder infection was about a year ago., Other Problems/ Disorders - UNABLE TO VOID TODAY Musculoskeletal History: Denies: Hx Arthritis, Hx Rheumatoid Arthritis, Hx Osteoporosis Sensory History: Denies: Hx Cataracts, Hx Contacts or Glasses, Hx Glaucoma, Hx Hearing Aid Opthamlomology History: Denies: Hx Cataracts, Hx Contacts or Glasses, Hx Glaucoma Neurological History: Reports: Hx Migraine Denies: Hx Dementia, Hx Headaches, Hx Seizures, Hx Transient Ischemic Attacks (TIA) Psychiatric History: Reports: Hx Bipolar Disorder - She takes depakote for this. , Other Psychiatric Issues/Disorders - bipolar Denies: Hx Anxiety, Hx Depression, Hx Panic Disorder, Hx Schizophrenia - Surgical History Surgery Procedure, Year, and Place: Tonsillectomy adenoidectomy. C section X4, Tubal Ligation - Immunization History Date of Tetanus Vaccine: Unknown Date of Influenza Vaccine: None Infectious Disease History: No Infectious Disease History: Reports: Hx of Known/Suspected MRSA - ? hx of leg wound Denies: Hx Clostridium Difficile, Hx Hepatitis, Hx Human Immunodeficiency Virus (HIV), Hx Shingles, Hx Tuberculosis, Hx Known/Suspected VRE, Hx Known/ Suspected VRSA, History Other Infectious Disease, Traveled Outside the [place] in Last 30 Days - Family History Known Family History: Positive: Cardiac Disease - mother had minor [place] at 46 y/o , Hypertension, Diabetes, Respiratory Disease - Chronic bronchitis, Other - migraines mom had brain CA, depression, anxiety, mom has LUPUS - Social History Occupation: Employed Full-time Lives: With Family Alcohol Use: Occasionally Hx Substance Use: No Substance Use Type: Reports: Marijuana Substance Use Comment - Amount & Last Used: 09/02/18 Hx Tobacco Use: Yes Smoking Status (MU): Light Every Day Tobacco Smoker Type: Cigarettes Amount Used/How Often: 5-7 CIG/DAY Length of Time of Smoking/Using Tobacco: 17 years Have You Smoked in the Last Year: Yes Review of Systems Cardiovascular: Negative Negative: Chest Pain Respiratory: Negative Negative: Shortness Of Breath Positive: Nausea. Negative: Abdominal Pain, Vomiting Genitourinary: Negative Positive: Other - neck pain, low back pain, left ankle pain Skin: Negative Positive: Headache. Negative: Weakness, Paresthesia, Numbness All Other Systems Reviewed And Are Negative: Yes Physical Exam Triage Information Reviewed: Yes Vital Signs On Initial Exam: Initial Vitals Temp Pulse Resp BP Pulse Ox 97.5 F 82 16 139/78 95 09/06/18 15:52 09/06/18 15:52 09/06/18 15:52 09/06/18 15:52 09/06/18 15:52 Vital Signs Reviewed: Yes Appearance: Positive: Well-Appearing - Pt. lying in be NAD. Cervical collar in place. Family member present. Skin: Positive: Warm, Dry Head/Face: Positive: Normal Head/Face Inspection Eyes: Positive: Normal, EOMI, CODY, Conjunctiva Clear Neck: Positive: Other: - Pain to midline cervical spine. C collar in place. Respiratory/Lung Sounds: Positive: Clear to Auscultation, Breath Sounds Present Cardiovascular: Positive: Normal, RRR Abdomen Description: Positive: Nontender, Soft Musculoskeletal: Positive: Normal, Strength/ROM Intact, Other - Mild edema to lateral left malleolus. No proximal pain. Lumbar tenderness. 5/5 strength in all 4 extremities. Neurological: Positive: Normal, Alert, Oriented to Person Place, Time, CN Intact II-III Psychiatric: Positive: Affect/Mood Appropriate - Reads Landing Coma Scale Best Eye Response: 4 - Spontaneous Best Motor Response: 6 - Obeys Commands Best Verbal Response: 5 - Oriented Coma Scale Total: 15 Diagnostics - Vital Signs Vital Signs Temp Pulse Resp BP Pulse Ox 09/06/18 15:52 97.5 F 82 16 139/78 95 - Laboratory Lab Statement: Any lab studies that have been ordered have been reviewed, and results considered in the medical decision making process. Adult Trauma Course/Dx - Course Course Of Treatment: Patient presenting with injuries after a mechanical fall. She has no neurological deficits is well-appearing. Patient complaining headache, midline neck pain, lumbar pain and left ankle pain. Patient notes that she's been having issues her left ankle and it keeps "giving out." And a brain was ordered to rule out skull fracture and/or bleed. Imaging is negative for acute findings, reading per radiology. Patient given a dose of Tylenol. Results were discussed. Splint placed for comfort. Will have patient follow- up for orthopedics for ongoing ankle pain. Advised to continue Tylenol for pain as directed. To return to the ear symptoms change or worsen. Patient understands and agrees with plan. - Diagnoses Differential Diagnosis/HQI/PQRI: Positive: Abrasion(s), Contusion(s), Fracture, Dislocation, Hematoma(s), Sprain, Strain Provider Diagnoses: Fall, Ankle sprain, Lumbar strain, Cervical strain, Head injury Discharge - Sign-Out/Discharge Documenting (check all that apply): Patient Departure Patient Received Moderate/Deep Sedation with Procedure: No - Discharge Plan Condition: Good Disposition: HOME Patient Education Materials: Cervical Strain (ED), Ankle Sprain (ED), Head Injury (ED), Low Back Strain (ED) Referrals: [facility] [Outside] Kyle Quezada MD [Medical Doctor] - Additional Instructions: Follow up with [facility] and orthopedics Splint for comfort Ice and elevate affected areas Tylenol for pain as directed Return to ER if symptoms change or worsen - Billing Disposition and Condition Condition: GOOD Disposition: Home
[2018-09-06] MEDS ORDERED: Acetaminophen TAB* 325 MG PO ONE (17:39)
[2018-09-06 18:03] VITALS: BP 130/91
== END 2018-09-06 18:02 | disposition home or self-care (01) ==
LOC: ED 15:38
DX: S93.402A Sprain of unspecified ligament of left ankle, initial encounter (principal); S39.012A Strain of muscle, fascia and tendon of lower back, initial encounter; S16.1XXA Strain of muscle, fascia and tendon at neck level, initial encounter; S09.90XA Unspecified injury of head, initial encounter; R11.0 Nausea; M54.2 Cervicalgia; F17.210 Nicotine dependence, cigarettes, uncomplicated; M54.5 Low back pain; W10.9XXA Fall (on) (from) unspecified stairs and steps, initial encounter; Y92.9 Unspecified place or not applicable
CPT/HCPCS: 70450; 72110; 72125; 99282; A9270-GY

== ENCOUNTER 2018-11-01 16:51 | Emergency (ER) | payer OTHER ==
[2018-11-01 17:29] VITALS: BP 107/63
[2018-11-01] MEDS ORDERED: Ketorolac INJ* 30 MG/ML 1 ML VIAL IM ONE (18:15)
[2018-11-01] MEDS ORDERED: Albuterol HFA INHALER* 8 gm MDI INH ONE (18:15)
[2018-11-01] MEDS ORDERED: predniSONE TAB* 20 MG PO ONE (18:15)
--- NOTE | 2018-11-01 19:13 | UC ---
Respiratory Complaint HPI - HPI Summary HPI Summary: 28 yo female ill x 2 days ear ache L>>R sinus pressure KEARNS cough wheezing chest tightness no f/c or SOB can take amox - History of Current Complaint Chief Complaint: UCHeadache Stated Complaint: SORE THROAT, HEADACHE, AND ABDOMINAL PAIN Time Seen by Provider: 11/01/18 18:03 Hx Obtained From: Patient Hx Last Menstrual Period: 10/30/18 Onset/Duration: Gradual Onset, Lasting Days Timing: Constant Severity Initially: Mild Severity Currently: Severe Pain Intensity: 10 Pain Scale Used: 0-10 Numeric Character: Cough: Nonproductive Aggravating Factors: Nothing Alleviating Factors: Nothing Associated Signs And Symptoms: Positive: Wheezing, Nasal Congestion - Allergies/Home Medications Allergies/Adverse Reactions: Allergies Allergy/AdvReac Type Severity Reaction Status Date / Time hydrocodone [From Vicodin] Allergy Hives/Diff. Verified 11/01/18 17:30 Breathing/I tching ibuprofen Allergy Swelling Verified 11/01/18 17:30 Of Face,Lips,& Throat Penicillins Allergy Swelling Verified 11/01/18 17:30 Of Face,Lips,& Throat PMH/Surg Hx/FS Hx/Imm Hx Previously Healthy: Yes Respiratory History: Bronchitis, Pneumonia Other History Of: Negative For: HIV, Hepatitis B, Hepatitis C, Anticoagulant Therapy - Surgical History Surgical History: Yes Surgery Procedure, Year, and Place: Tonsillectomy adenoidectomy. C section X4, Tubal Ligation - Family History Known Family History: Positive: Cardiac Disease - mother had minor [place] at 46 y/o , Hypertension, Diabetes, Respiratory Disease - Chronic bronchitis, Other - migraines mom had brain CA, depression, anxiety, mom has LUPUS - Social History Alcohol Use: Occasionally Substance Use Type: Marijuana Substance Use Comment - Amount & Last Used: occasionally Smoking Status (MU): Light Every Day Tobacco Smoker Type: Cigarettes Amount Used/How Often: 5-7 CIG/DAY Length of Time of Smoking/Using Tobacco: 17 years Have You Smoked in the Last Year: Yes Household Exposure Type: Cigarettes - Immunization History Most Recent Influenza Vaccination: declined for this year Most Recent Tetanus Shot: UTD Most Recent Pneumonia Vaccination: none Review of Systems All Other Systems Reviewed And Are Negative: Yes Constitutional: Positive: Negative Skin: Positive: Negative Eyes: Positive: Drainage ENT: Positive: Ear Ache, Sinus Congestion, Sinus Pain/Tenderness Respiratory: Positive: Negative Cardiovascular: Positive: Negative Gastrointestinal: Positive: Negative Genitourinary: Positive: Negative Motor: Positive: Negative Neurovascular: Positive: Negative Musculoskeletal: Positive: Negative Neurological: Positive: Headache Psychological: Positive: Negative Physical Exam Triage Information Reviewed: Yes Appearance: Well-Appearing, No Pain Distress, Well-Nourished Vital Signs: Initial Vital Signs Temp 98.9 F 11/01/18 17:26 Pulse 77 11/01/18 17:26 Resp 12 11/01/18 17:26 BP 107/63 11/01/18 17:26 Pulse Ox 100 11/01/18 17:26 Vital Signs Reviewed: Yes Eyes: Positive: Conjunctiva Inflamed. Negative: Discharge ENT: Positive: Hearing grossly normal, Nasal congestion, Nasal drainage, TM bulging - B, TM red - R, Sinus tenderness, Uvula midline. Negative: Trismus, Muffled voice, Hoarse voice Neck: Positive: Supple, Nontender, No Lymphadenopathy Respiratory: Positive: No accessory muscle use, Wheezing - with forced expiration. Negative: Respiratory distress Cardiovascular: Positive: RRR Abdomen Description: Positive: Nontender, No Organomegaly. Negative: CVA Tenderness (R), CVA Tenderness (L) Bowel Sounds: Positive: Present Musculoskeletal: Positive: ROM Intact, No Edema Neurological: Positive: Alert, Other: - non focal exam Psychological Exam: Normal Skin Exam: Normal Respiratory Course/Dx - Differential Dx/Diagnosis Provider Diagnosis: Otitis media, right, Sinus pressure, Bronchospasm Discharge - Sign-Out/Discharge Documenting (check all that apply): Patient Departure All imaging exams completed and their final reports reviewed: No Studies - Discharge Plan Condition: Stable Disposition: HOME Patient Education Materials: Ear Infection (ED), Bronchospasm (ED), How to Use a Metered-Dose Inhaler and a Spacer (ED) Referrals: No Primary Care Phys,NOPCP [Primary Care Provider] - - Billing Disposition and Condition Condition: STABLE Disposition: Home
== END 2018-11-01 19:30 | disposition home or self-care (01) ==
LOC: UCEAST 16:51
DX: H66.91 Otitis media, unspecified, right ear (principal); J98.01 Acute bronchospasm; R51 Headache; F17.210 Nicotine dependence, cigarettes, uncomplicated; Z88.0 Allergy status to penicillin
CPT/HCPCS: 87651; 96372; 99213; A9270-GY; G0463; J1885; J7512

== ENCOUNTER 2018-11-18 20:04 | Emergency (ER) | payer OTHER ==
[2018-11-19 01:29] LABS: ABS Eosinophils 0.5 10^3/ul (0-0.6); ABS Lymphocytes 4.1 10^3/ul (1.0-4.8); ABS Monocytes 0.7 10^3/ul (0-0.8); ABS Neutrophils 4.9 10^3/ul (1.5-7.7); Eosinophil % 4.8 %; Hematocrit 41 % (35-47); Hemoglobin 13.8 g/dL (12.0-16.0); Lymphocyte % 40.2 %; Mean Corpuscular HGB Conc 34 g/dL (31-36); Mean Corpuscular Hemoglobin 31 pg (27-31); Mean Corpuscular Volume 91 fL (80-97); Platelet Count 163 10^3/uL (150-450); Red Blood Count 4.48 10^6 /uL (3.70-4.87); Red Cell Distribution Width 13 % (10-15); White Blood Count 10.2 10^3/uL (3.5-10.8)
[2018-11-19 01:50] LABS: ALT 17 U/L (7-52); AST 15 U/L (13-39); Albumin 3.9 g/dL (3.2-5.2); Albumin/Globulin Ratio 1.6 (1-3); Alkaline Phosphatase 71 U/L (34-104); Anion Gap 6 mmol/L (2-11); BUN/Creatinine Ratio 21.7 (8-20); Blood Urea Nitrogen 13 mg/dL (6-24); CO2 Carbon Dioxide 23 mmol/L (22-32); Calcium 8.9 mg/dL (8.6-10.3); Chloride 108 mmol/L (101-111); EGFR Non-African American 117.4 (>60); Globulin 2.4 g/dL (2-4); Glucose 108 mg/dL (70-100); Potassium 3.6 mmol/L (3.5-5.0); Sodium 137 mmol/L (135-145); Total Protein 6.3 g/dL (6.4-8.9)
[2018-11-19 01:56] LABS: HCG Pregnancy < 0.60 mIU/mL
--- NOTE | 2018-11-19 02:11 | ED ---
HPI Febrile Illness - HPI Summary HPI Summary: This pt is a 28 Y/O F presenting to [facility] with a CC of a fever that has been present for the past two days, starting on 11/17/18. She states that the fever has been accompanied with tightness in her chest, temporal migraines, vomiting, and diarrhea. She states that her symptoms got worse today when she experienced diarrhea all day and vomited 3 times. She stated that she has recently been sick and was given an ABX treatment and steroids. She has taken the steroids since 11/14/18 and the ABX since 11/17/18. She stated no aggravating or alleviating symptoms. She has no pertinent PMHx. - History of Current Complaint Chief Complaint: EDFluSymptoms Time Seen by Provider: 11/19/18 00:47 Hx Obtained From: Patient Hx Last Menstrual Period: 10/30/18 Onset/Duration: Started Days Ago - 2, Started Weeks Ago, Worse Since Timing: Constant Initial Severity: Moderate Current Severity: Moderate Pain Intensity: 10 Pain Scale Used: 0-10 Numeric Aggravating Factors: Nothing Alleviating Factors: Nothing Associated Signs and Symptoms: Diarrhea, Headache - migraines, Nausea, SOB, Vomiting, Other: - chest pain - Allergy/Home Medications Allergies/Adverse Reactions: Allergies Allergy/AdvReac Type Severity Reaction Status Date / Time hydrocodone [From Vicodin] Allergy Hives/Diff. Verified 11/01/18 17:30 Breathing/I tching ibuprofen Allergy Swelling Verified 11/01/18 17:30 Of Face,Lips,& Throat Penicillins Allergy Swelling Verified 11/01/18 17:30 Of Face,Lips,& Throat PMH/Surg Hx/FS Hx/Imm Hx Previously Healthy: Yes Endocrine/Hematology History: Denies: Hx Anticoagulant Therapy, Hx Diabetes, Hx Thyroid Disease Cardiovascular History: Denies: Hx Congestive Heart Failure, Hx Deep Vein Thrombosis, Hx Hypertension , Hx Myocardial Infarction, Hx Pacemaker/ICD, Hx Peripheral Vascular Disease Respiratory History: Reports: Hx Asthma, Hx Chronic Bronchitis Denies: Hx Chronic Obstructive Pulmonary Disease (COPD), Hx Lung Cancer, Hx Pneumonia, Hx Pulmonary Embolism GI History: Reports: Other GI Disorders - hx bladder infection Denies: Hx Gall Bladder Disease, Hx Gastrointestinal Bleed, Hx Ulcer, Hx Urosepsis History: Reports: Hx Kidney Infection, Hx Kidney Stones, Hx Renal Disease - Her last kidney/bladder infection was about a year ago., Other Problems/ Disorders - UNABLE TO VOID TODAY Musculoskeletal History: Denies: Hx Arthritis, Hx Rheumatoid Arthritis, Hx Osteoporosis Sensory History: Denies: Hx Cataracts, Hx Contacts or Glasses, Hx Glaucoma, Hx Hearing Aid Opthamlomology History: Denies: Hx Cataracts, Hx Contacts or Glasses, Hx Glaucoma Neurological History: Reports: Hx Migraine Denies: Hx Dementia, Hx Headaches, Hx Seizures, Hx Transient Ischemic Attacks (TIA) Psychiatric History: Reports: Hx Bipolar Disorder - She takes depakote for this. , Other Psychiatric Issues/Disorders - bipolar Denies: Hx Anxiety, Hx Depression, Hx Panic Disorder, Hx Schizophrenia - Surgical History Surgery Procedure, Year, and Place: Tonsillectomy adenoidectomy. C section X4, Tubal Ligation 04/19/15 - Immunization History Date of Tetanus Vaccine: Unknown Date of Influenza Vaccine: None Infectious Disease History: No Infectious Disease History: Reports: Hx of Known/Suspected MRSA - ? hx of leg wound Denies: Hx Clostridium Difficile, Hx Hepatitis, Hx Human Immunodeficiency Virus (HIV), Hx Shingles, Hx Tuberculosis, Hx Known/Suspected VRE, Hx Known/ Suspected VRSA, History Other Infectious Disease, Traveled Outside the [place] in Last 30 Days - Family History Known Family History: Positive: Cardiac Disease - mother had minor [place] at 46 y/o , Hypertension, Diabetes, Respiratory Disease - Chronic bronchitis, Other - migraines mom had brain CA, depression, anxiety, mom has LUPUS - Social History Occupation: Student Lives: With Family Alcohol Use: Occasionally Hx Substance Use: Yes Substance Use Type: Reports: Marijuana Substance Use Comment - Amount & Last Used: occasionally Hx Tobacco Use: Yes Smoking Status (MU): Light Every Day Tobacco Smoker Type: Cigarettes Amount Used/How Often: 5-7 CIG/DAY Length of Time of Smoking/Using Tobacco: 17 years Have You Smoked in the Last Year: Yes Review of Systems Positive: Fever Positive: Chest Pain - tightness Positive: Vomiting, Diarrhea, Nausea All Other Systems Reviewed And Are Negative: Yes Physical Exam - Summary Physical Exam Summary: HEENT: Normocephalic, Atraumatic. Eyes: Conjuctiva normal, PERRL. Ears: TMs within normal limits. Nares: (-) discharge, (-) erythema. Oropharynx: Clear, mucous membranes moist, (-) exudates. Neck: Soft, FROM, (-) lymphadenopathy, (-) thyromegaly, (-) JVD. Cardiovascular: Normal sinus rhythm, (-) murmur. Epigastric tenderness Lungs: Clear to auscultation bilaterally (-) wheezes, (-) rales, (-) rhonchi. Abdomen: Soft, non-tender, non-distended, (-) organomegaly, normal bowel sounds. Back: (-) CVA tenderness Extremities: No edema. Skin: Warm, dry, (-) rash. Neuro: Alert and oriented x3, no focal deficits. Psychiatric: Mood normal, affect normal. Triage Information Reviewed: Yes Vital Signs On Initial Exam: Initial Vitals Temp Pulse Resp BP Pulse Ox 98.2 F 61 18 122/68 98 11/18/18 20:15 11/18/18 20:15 11/18/18 20:15 11/18/18 20:15 11/18/18 20:15 Vital Signs Reviewed: Yes Diagnostics - Vital Signs Vital Signs Temp Pulse Resp BP Pulse Ox 11/18/18 22:15 97.9 F 84 18 124/89 94 11/18/18 20:15 98.2 F 61 18 122/68 98 - Laboratory Lab Results: Lab Results 11/19/18 11/19/18 11/19/18 Range/Units 01:24 01:24 01:24 WBC 10.2 (3.5-10.8) 10^3/uL RBC 4.48 (3.70-4.87) 10^6 /uL Hgb 13.8 (12.0-16.0) g/dL Hct 41 (35-47) % MCV 91 (80-97) fL MCH 31 (27-31) pg MCHC 34 (31-36) g/dL RDW 13 (10-15) % Plt Count 163 (150-450) 10^3/uL MPV 11.0 H (7.4-10.4) fL Neut % (Auto) 47.9 % Lymph % (Auto) 40.2 % Holmes % (Auto) 6.6 % Eos % (Auto) 4.8 % Baso % (Auto) 0.5 % Absolute Neuts (auto) 4.9 (1.5-7.7) 10^3/ul Absolute Lymphs (auto) 4.1 (1.0-4.8) 10^3/ul Absolute Monos (auto) 0.7 (0-0.8) 10^3/ul Absolute Eos (auto) 0.5 (0-0.6) 10^3/ul Absolute Basos (auto) 0.0 (0-0.2) 10^3/ul Absolute Nucleated RBC 0.0 10^3/ul Nucleated RBC % 0.0 Sodium 137 (135-145) mmol/L Potassium 3.6 (3.5-5.0) mmol/L Chloride 108 (101-111) mmol/L Carbon Dioxide 23 (22-32) mmol/L Anion Gap 6 (2-11) mmol/L BUN 13 (6-24) mg/dL Creatinine 0.60 (0.51-0.95) mg/dL Est GFR ( Amer) 142.0 (>60) Est GFR (Non-Af Amer) 117.4 (>60) BUN/Creatinine Ratio 21.7 H (8-20) Glucose 108 H (70-100) mg/dL Lactic Acid 0.4 L (0.5-2.0) mmol/L Calcium 8.9 (8.6-10.3) mg/dL Total Bilirubin 0.50 (0.2-1.0) mg/dL AST 15 (13-39) U/L ALT 17 (7-52) U/L Alkaline Phosphatase 71 (34-104) U/L Total Protein 6.3 L (6.4-8.9) g/dL Albumin 3.9 (3.2-5.2) g/dL Globulin 2.4 (2-4) g/dL Albumin/Globulin Ratio 1.6 (1-3) Beta HCG, Quant < 0.60 mIU/mL Result Diagrams: 11/19/18 01:24 11/19/18 01:24 Lab Statement: Any lab studies that have been ordered have been reviewed, and results considered in the medical decision making process. Course/Dx - Course Course Of Treatment: This pt is a 28 Y/O F presenting to [facility] with a CC of a fever that has been present for the past two days, starting on 11/17/18. She states that the fever has been accompanied with tightness in her chest, temporal migraines, SOB, vomiting, and diarrhea. Her PE found that she is an obese female that has epigastric tenderness. She has abnormal lab values in PV, BUN/creatinine, Glucose, Total protein and latic acid. Her CXR found no acute processes. She will be discharged home with a Dx of viral syndrome and given instructions to take zofran, clear liquids, rest, follow up with PCP, recover as tolerated. - Diagnoses Provider Diagnoses: Viral syndrome Discharge ED - Sign-Out/Discharge Documenting (check all that apply): Patient Departure - discharge Patient Received Moderate/Deep Sedation with Procedure: No - Discharge Plan Condition: Stable Disposition: HOME Prescriptions: Ondansetron ODT TAB* [Zofran 4 MG Odt TAB*] 4 mg PO Q6H PRN #10 tab.odt PRN Reason: Nausea Patient Education Materials: Viral Syndrome (ED) Referrals: [facility] [Outside] - 2 Days () Additional Instructions: Please take zofran as needed for nasuea, clear liquids, rest, and follow up with PCP. PLEASE FOLLOW UP WITH YOUR PRIMARY CARE PROVIDER IN 2-3 DAYS AND RETURN TO THE EMERGENCY DEPARTMENT FOR ANY NEW OR WORSENING SYMPTOMS. - Billing Disposition and Condition Condition: STABLE Disposition: Home - Attestation Statements Document Initiated by Telmaibe: Yes Documenting Scribe: oBaz Weiss Provider For Whom Scribe is Documenting (Include Credential): Millie Ledbetter MD Scribe Attestation: Boaz Mckinney, scribed for Millie Ledbetter MD on 11/19/18 at 0542. Scribe Documentation Reviewed: Yes Provider Attestation: The documentation as recorded by the Boaz chowdary accurately reflects the service I personally performed and the decisions made by , Millie Ledbetter MD Status of Scribe Document: Viewed
[2018-11-19] MEDS ORDERED: Ondansetron TAB* 4 MG PO ONE (02:29)
[2018-11-19 03:33] VITALS: BP 147/98
== END 2018-11-19 03:27 | disposition home or self-care (01) ==
LOC: ED 20:04
DX: B34.9 Viral infection, unspecified (principal); R50.9 Fever, unspecified; R07.89 Other chest pain; R10.816 Epigastric abdominal tenderness; R06.02 Shortness of breath; G43.909 Migraine, unspecified, not intractable, without status migrainosus; F31.9 Bipolar disorder, unspecified; Z88.6 Allergy status to analgesic agent; Z88.5 Allergy status to narcotic agent; Z88.0 Allergy status to penicillin; F17.200 Nicotine dependence, unspecified, uncomplicated
CPT/HCPCS: 36415; 71046; 80053; 83605; 84702; 85025; 93005; 99283; A9270-GY

== ENCOUNTER 2018-12-21 14:41 | Emergency (ER) | payer OTHER ==
[2018-12-21 14:47] VITALS: BP 108/80
[2018-12-21 15:39] LABS: Rapid Strep Molecular Negative (Negative)
[2018-12-21 15:47] LABS: Influenza A Molecular NEGATIVE (Negative); Influenza B Molecular NEGATIVE (Negative)
[2018-12-21] MEDS: Acetaminophen TAB* 325 MG PO ONE (17:13)
[2018-12-21 17:28] LABS: Urine Appearance Cloudy; Urine Bilirubin Negative (Negative); Urine Blood Negative (Negative); Urine Color Yellow; Urine Glucose Negative (Negative); Urine Ketones Negative (Negative); Urine Nitrite Negative (Negative); Urine Protein Negative (Negative); Urine Urobilinogen Negative (Negative)
--- NOTE | 2018-12-21 17:39 | ED ---
Influenza-Like Illness - HPI Summary HPI Summary: Patient is a 28-year-old female who presents to emergency department for ongoing productive cough times one week. Patient notes she has been sick numerous times this fall. She has no significant past medical history. Patient notes chills without documented fever. Patient also notes mild dysuria. Times are mild in severity. No current modifying factors. - History of Current Complaint Chief Complaint: EDFluSymptoms Time Seen by Provider: 12/21/18 15:35 Hx Obtained From: Patient - Allergy/Home Medications Allergies/Adverse Reactions: Allergies Allergy/AdvReac Type Severity Reaction Status Date / Time hydrocodone [From Vicodin] Allergy Hives/Diff. Verified 11/01/18 17:30 Breathing/I tching ibuprofen Allergy Swelling Verified 11/01/18 17:30 Of Face,Lips,& Throat Penicillins Allergy Swelling Verified 11/01/18 17:30 Of Face,Lips,& Throat PMH/Surg Hx/FS Hx/Imm Hx Previously Healthy: Yes Endocrine/Hematology History: Denies: Hx Anticoagulant Therapy, Hx Diabetes, Hx Thyroid Disease Cardiovascular History: Denies: Hx Congestive Heart Failure, Hx Deep Vein Thrombosis, Hx Hypertension , Hx Myocardial Infarction, Hx Pacemaker/ICD, Hx Peripheral Vascular Disease Respiratory History: Reports: Hx Asthma, Hx Chronic Bronchitis Denies: Hx Chronic Obstructive Pulmonary Disease (COPD), Hx Lung Cancer, Hx Pneumonia, Hx Pulmonary Embolism GI History: Reports: Other GI Disorders - hx bladder infection Denies: Hx Gall Bladder Disease, Hx Gastrointestinal Bleed, Hx Ulcer, Hx Urosepsis History: Reports: Hx Kidney Infection, Hx Kidney Stones, Hx Renal Disease - Her last kidney/bladder infection was about a year ago., Other Problems/ Disorders - UNABLE TO VOID TODAY Musculoskeletal History: Denies: Hx Arthritis, Hx Rheumatoid Arthritis, Hx Osteoporosis Sensory History: Denies: Hx Cataracts, Hx Contacts or Glasses, Hx Glaucoma, Hx Hearing Aid Opthamlomology History: Denies: Hx Cataracts, Hx Contacts or Glasses, Hx Glaucoma Neurological History: Reports: Hx Migraine Denies: Hx Dementia, Hx Headaches, Hx Seizures, Hx Transient Ischemic Attacks (TIA) Psychiatric History: Reports: Hx Bipolar Disorder - She takes depakote for this. , Other Psychiatric Issues/Disorders - bipolar Denies: Hx Anxiety, Hx Depression, Hx Panic Disorder, Hx Schizophrenia - Surgical History Surgery Procedure, Year, and Place: Tonsillectomy adenoidectomy. C section X4, Tubal Ligation 04/19/15 - Immunization History Date of Tetanus Vaccine: Unknown Date of Influenza Vaccine: None Infectious Disease History: No Infectious Disease History: Reports: Hx of Known/Suspected MRSA - ? hx of leg wound Denies: Hx Clostridium Difficile, Hx Hepatitis, Hx Human Immunodeficiency Virus (HIV), Hx Shingles, Hx Tuberculosis, Hx Known/Suspected VRE, Hx Known/ Suspected VRSA, History Other Infectious Disease, Traveled Outside the [place] in Last 30 Days - Family History Known Family History: Positive: Cardiac Disease - mother had minor [place] at 46 y/o , Hypertension, Diabetes, Respiratory Disease - Chronic bronchitis, Other - migraines mom had brain CA, depression, anxiety, mom has LUPUS - Social History Occupation: Unemployed Lives: With Family Alcohol Use: Occasionally Hx Substance Use: Yes Substance Use Type: Reports: Marijuana Substance Use Comment - Amount & Last Used: occasionally Hx Tobacco Use: Yes Smoking Status (MU): Light Every Day Tobacco Smoker Type: Cigarettes Amount Used/How Often: 5-7 CIG/DAY Length of Time of Smoking/Using Tobacco: 17 years Have You Smoked in the Last Year: Yes Review of Systems Constitutional: Negative Positive: Chills ENT: Negative Cardiovascular: Negative Positive: Cough. Negative: Shortness Of Breath Gastrointestinal: Negative Musculoskeletal: Negative Positive: Rash Neurological: Negative All Other Systems Reviewed And Are Negative: Yes Physical Exam Triage Information Reviewed: Yes Vital Signs On Initial Exam: Initial Vitals Temp Pulse Resp BP Pulse Ox 96.8 F 85 18 108/80 97 12/21/18 14:45 12/21/18 14:45 12/21/18 14:45 12/21/18 14:45 12/21/18 14:45 Vital Signs Reviewed: Yes Appearance: Positive: Well-Appearing - Pt. sitting on bed in NAD. Very talkative. Skin: Positive: Warm, Dry Head/Face: Positive: Normal Head/Face Inspection Eyes: Positive: Normal, EOMI, CODY, Conjunctiva Clear ENT: Positive: Pharynx normal, TMs normal Neck: Positive: Supple Respiratory/Lung Sounds: Positive: Clear to Auscultation, Breath Sounds Present Cardiovascular: Positive: Normal, RRR Abdomen Description: Positive: Nontender, Soft Musculoskeletal: Positive: Normal, Strength/ROM Intact Neurological: Positive: Normal, CN Intact II-III Psychiatric: Positive: Affect/Mood Appropriate Procedures - Sedation Patient Received Moderate/Deep Sedation with Procedure: No Diagnostics - Vital Signs Vital Signs Temp Pulse Resp BP Pulse Ox 12/21/18 14:45 96.8 F 85 18 108/80 97 - Laboratory Lab Results: Lab Results 12/21/18 12/21/18 12/21/18 Range/Units 14:53 14:53 16:59 Urine Color Yellow Urine Appearance Cloudy Urine pH 5.0 (5-9) Ur Specific [place] 1.020 (1.010-1.030) Urine Protein Negative (Negative) Urine Ketones Negative (Negative) Urine Blood Negative (Negative) Urine Nitrate Negative (Negative) Urine Bilirubin Negative (Negative) Urine Urobilinogen Negative (Negative) Ur Leukocyte Esterase Negative (Negative) Urine Glucose Negative (Negative) Influenza A (Rapid) Negative (Negative) Influenza B (Rapid) Negative (Negative) Group A Strep Rapid Negative (Negative) Lab Statement: Any lab studies that have been ordered have been reviewed, and results considered in the medical decision making process. Flu Symptom Course/Dx - Course Course Of Treatment: Pt. with above complaints. Strep and influenza swabs ordered by triage nurse which are nagative. CXR negative for acute findings per radiology. U/A negative for infection. Suspect viral etiology. Before results could be discussed with pt. she eloped from the ER. Will mail dc packet. - Diagnoses Differential Diagnosis/HQI/PQRI: Positive: Bronchitis, Influenza, Pneumonia, Upper Respiratory Infection Provider Diagnoses: Viral respiratory infection Discharge ED - Sign-Out/Discharge Documenting (check all that apply): Patient Departure - Discharge Plan Condition: Good Disposition: ELOPEMENT Patient Education Materials: Viral Syndrome (ED) Referrals: [facility] [Outside] Additional Instructions: Call the [facility] to schedule a follow up appointment Increase fluids and rest Tylenol for discomfort as directed Return to ER if symptoms change or worsen - Billing Disposition and Condition Condition: GOOD Disposition: Elopement
== END 2018-12-21 17:37 | disposition left against medical advice (07) ==
LOC: ED 14:41
DX: J06.9 Acute upper respiratory infection, unspecified (principal); B34.9 Viral infection, unspecified; F31.9 Bipolar disorder, unspecified; F17.210 Nicotine dependence, cigarettes, uncomplicated; Z79.899 Other long term (current) drug therapy; Z88.6 Allergy status to analgesic agent; Z88.5 Allergy status to narcotic agent; Z88.0 Allergy status to penicillin
CPT/HCPCS: 71046; 81003; 87651; 99282; A9270-GY

== ENCOUNTER 2018-12-30 16:47 | Emergency (ER) | payer OTHER ==
[2018-12-30 17:11] VITALS: BP 132/80
--- NOTE | 2018-12-30 17:54 | UC ---
Respiratory Complaint HPI - HPI Summary HPI Summary: Pt presents with c/o cough, wheezing, sob, nasal congestion, sinus pressure and pain. Pt states taht she has asthma but does not have a nebulizer for at home. - History of Current Complaint Chief Complaint: UCGeneralIllness Stated Complaint: CONGESTED Time Seen by Provider: 12/30/18 17:07 Hx Obtained From: Patient Hx Last Menstrual Period: 12/04/18 ?: No Onset/Duration: Gradual Onset, Lasting Days, Still Present Timing: Constant Severity Initially: Mild Severity Currently: Moderate Pain Intensity: 7 Character: Cough: Productive Aggravating Factors: Deep Breaths, Recumbent Position Alleviating Factors: Nothing Associated Signs And Symptoms: Positive: Wheezing, URI, Nasal Congestion, Sinus Discomfort - Risk Factors Pulmonary Embolism Risk Factors: Negative Cardiac Risk Factors: Smoking Tuberculosis Risk Factors: Smoking - Allergies/Home Medications Allergies/Adverse Reactions: Allergies Allergy/AdvReac Type Severity Reaction Status Date / Time hydrocodone [From Vicodin] Allergy Hives/Diff. Verified 11/01/18 17:30 Breathing/I tching ibuprofen Allergy Swelling Verified 11/01/18 17:30 Of Face,Lips,& Throat Penicillins Allergy Swelling Verified 11/01/18 17:30 Of Face,Lips,& Throat PMH/Surg Hx/FS Hx/Imm Hx Previously Healthy: Yes Other History Of: Negative For: HIV, Hepatitis B, Hepatitis C, Anticoagulant Therapy - Surgical History Surgical History: Yes Surgery Procedure, Year, and Place: Tonsillectomy adenoidectomy. C section X4, Tubal Ligation 04/19/15 - Family History Known Family History: Positive: Cardiac Disease - mother had minor [place] at 46 y/o , Hypertension, Diabetes, Respiratory Disease - Chronic bronchitis, Other - migraines mom had brain CA, depression, anxiety, mom has LUPUS - Social History Lives: With Family Alcohol Use: Occasionally Substance Use Type: Marijuana Substance Use Comment - Amount & Last Used: occasionally Smoking Status (MU): Light Every Day Tobacco Smoker Type: Cigarettes Amount Used/How Often: 5-7 CIG/DAY Length of Time of Smoking/Using Tobacco: 17 years Have You Smoked in the Last Year: Yes Household Exposure Type: Cigarettes - Immunization History Most Recent Influenza Vaccination: declined for this year Most Recent Tetanus Shot: UTD Most Recent Pneumonia Vaccination: none Review of Systems All Other Systems Reviewed And Are Negative: Yes Constitutional: Positive: Chills, Fatigue Skin: Positive: Negative Eyes: Positive: Negative ENT: Positive: Sinus Congestion, Sinus Pain/Tenderness Respiratory: Positive: Shortness Of Breath, Cough Cardiovascular: Positive: Negative Gastrointestinal: Positive: Negative Genitourinary: Positive: Negative Motor: Positive: Negative Neurovascular: Positive: Negative Musculoskeletal: Positive: Negative Neurological: Positive: Negative Psychological: Positive: Negative Is Patient Immunocompromised?: No Physical Exam Triage Information Reviewed: Yes Appearance: Ill-Appearing Vital Signs: Initial Vital Signs Temp 97.3 F 12/30/18 17:04 Pulse 87 12/30/18 17:04 Resp 17 12/30/18 17:04 BP 132/80 12/30/18 17:04 Pulse Ox 97 12/30/18 17:04 Vital Signs Reviewed: Yes Eye Exam: Normal ENT: Positive: Nasal congestion, Sinus tenderness Dental Exam: Normal Neck exam: Normal Respiratory: Positive: Decreased breath sounds Cardiovascular Exam: Normal Musculoskeletal Exam: Normal Neurological Exam: Normal Psychological Exam: Normal Skin Exam: Normal Respiratory Course/Dx - Differential Dx/Diagnosis Differential Diagnosis/HQI/PQRI: Bronchitis, Sinusitis Provider Diagnosis: Sinusitis, Bronchitis Discharge ED - Sign-Out/Discharge Documenting (check all that apply): Patient Departure All imaging exams completed and their final reports reviewed: No Studies - Discharge Plan Condition: Stable Disposition: HOME Prescriptions: Albuterol 2.5MG/3ML (0.083%)* [Ventolin 2.5 MG/3 ML NEB.KIANA*] 2.5 mg INH Q6H PRN #1 neb.kiana PRN Reason: Sob/Wheezing Azithromycin TAB* [Zithromax TAB (Z-SAM) 250 mg #6 tabs] 2 tab PO .TODAY, THEN 1 DAILY #1 sam Guaifenesin/Pseudoephedrne HCl [Mucinex D ER 600-60 mg Tablet] 1 each PO Q12H # 14 tab.er.12h predniSONE TAB* [Deltasone 20 MG TAB*] 20 mg PO DAILY #4 tab Patient Education Materials: Sinusitis (ED), Acute Bronchitis (ED) Referrals: [facility] [place] [facility] [Outside] - As Soon As Possible No Primary Care Phys,NOPCP [Primary Care Provider] - Additional Instructions: Please establish care as soon as possible with a PCP. If your symptoms do not improve please seek care as soon as possible at the closest medical facility. - Billing Disposition and Condition Condition: STABLE Disposition: Home
== END 2018-12-30 18:15 | disposition home or self-care (01) ==
LOC: UCEAST 16:47
DX: J40 Bronchitis, not specified as acute or chronic (principal); J32.9 Chronic sinusitis, unspecified; F17.210 Nicotine dependence, cigarettes, uncomplicated; Z88.8 Allergy status to other drugs, medicaments and biological substances; Z88.0 Allergy status to penicillin; Z88.5 Allergy status to narcotic agent
CPT/HCPCS: 99212; G0463

== ENCOUNTER 2019-02-22 11:07 | Emergency (ER) | payer OTHER ==
--- NOTE | 2019-02-22 11:46 | ED ---
HPI Chest Pain - HPI Summary HPI Summary: The patient is a 29 y/o F arriving by ambulance to [facility] with a chief complaint of sudden onset right-sided CP last night and into this morning. She reports that the pain began in the right chest wall but has intermittently radiated into the upper chest and into the right arm. She states that the pain is constant rated 10/10 in severity now and feels like a pressure and stabbing pain which is aggravated with deep inspiration and cough. There are no alleviating factors. She endorses SOB and diarrhea. She notes that the symptoms could be secondary to anxiety, but she has experienced panic attacks before but never with these symptoms. PMHx: depression, PTDS, bipolar disorder, asthma, chronic bronchitis, kidney stones, renal disease. FHx: TN in mother and father, triple bypass in aunt. Current every smoker, occasional EtOH, marijuana use. Medications reviewed. Allergies noted. - History of Current Complaint Chief Complaint: EDChestWallPain Time Seen by Provider: 02/22/19 11:36 Hx Obtained From: Patient Hx Last Menstrual Period: 12/04/18 Onset/Duration: Started Hours Ago - last night, Still Present Timing: Constant Initial Severity: Severe Current Severity: Severe Pain Intensity: 10 Pain Scale Used: 0-10 Numeric Chest Pain Location: Upper Sternal, Right Anterior, Right Lateral Chest Pain Radiates: Yes Chest Pain Radiates To:: Arm - right Character: Pressure/Squeezing, Sharp/Stabbing Aggravating Factor(s): Deep Breaths, Other: - cough Alleviating Factor(s): Nothing Associated Signs and Symptoms: Positive: Chest Pain, Shortness of Breath, Other : - diarrhea - Allergy/Home Medications Allergies/Adverse Reactions: Allergies Allergy/AdvReac Type Severity Reaction Status Date / Time hydrocodone [From Vicodin] Allergy Hives/Diff. Verified 11/01/18 17:30 Breathing/I tching ibuprofen Allergy Swelling Verified 11/01/18 17:30 Of Face,Lips,& Throat Penicillins Allergy Swelling Verified 11/01/18 17:30 Of Face,Lips,& Throat PMH/Surg Hx/FS Hx/Imm Hx Endocrine/Hematology History: Denies: Hx Anticoagulant Therapy, Hx Diabetes, Hx Thyroid Disease Cardiovascular History: Denies: Hx Congestive Heart Failure, Hx Deep Vein Thrombosis, Hx Hypertension , Hx Myocardial Infarction, Hx Pacemaker/ICD, Hx Peripheral Vascular Disease Respiratory History: Reports: Hx Asthma, Hx Chronic Bronchitis Denies: Hx Chronic Obstructive Pulmonary Disease (COPD), Hx Lung Cancer, Hx Pneumonia, Hx Pulmonary Embolism GI History: Reports: Other GI Disorders - hx bladder infection Denies: Hx Gall Bladder Disease, Hx Gastrointestinal Bleed, Hx Ulcer, Hx Urosepsis History: Reports: Hx Kidney Infection, Hx Kidney Stones, Hx Renal Disease - Her last kidney/bladder infection was about a year ago., Other Problems/ Disorders - UNABLE TO VOID TODAY Musculoskeletal History: Denies: Hx Arthritis, Hx Rheumatoid Arthritis, Hx Osteoporosis Sensory History: Denies: Hx Cataracts, Hx Contacts or Glasses, Hx Glaucoma, Hx Hearing Aid Opthamlomology History: Denies: Hx Cataracts, Hx Contacts or Glasses, Hx Glaucoma Neurological History: Reports: Hx Migraine Denies: Hx Dementia, Hx Headaches, Hx Seizures, Hx Transient Ischemic Attacks (TIA) Psychiatric History: Reports: Hx Anxiety, Hx Depression, Hx Post Traumatic Stress Disorder, Hx Bipolar Disorder - She takes depakote for this., Other Psychiatric Issues/Disorders - bipolar Denies: Hx Panic Disorder, Hx Schizophrenia - Surgical History Surgical History: Yes Surgery Procedure, Year, and Place: Tonsillectomy adenoidectomy. C section X4, Tubal Ligation 04/19/15 - Immunization History Date of Tetanus Vaccine: Unknown Date of Influenza Vaccine: None Infectious Disease History: No Infectious Disease History: Reports: Hx of Known/Suspected MRSA - ? hx of leg wound Denies: Hx Clostridium Difficile, Hx Hepatitis, Hx Human Immunodeficiency Virus (HIV), Hx Shingles, Hx Tuberculosis, Hx Known/Suspected VRE, Hx Known/ Suspected VRSA, History Other Infectious Disease, Traveled Outside the [place] in Last 30 Days - Family History Known Family History: Positive: Cardiac Disease - mother had minor [place] at 46 y/o , father with [place], Hypertension, Diabetes, Respiratory Disease - Chronic bronchitis, Other - migraines mom had brain CA, depression, anxiety, mom has LUPUS - Social History Alcohol Use: Occasionally Hx Substance Use: Yes Substance Use Type: Reports: Marijuana Substance Use Comment - Amount & Last Used: occasionally Hx Tobacco Use: Yes Smoking Status (MU): Light Every Day Tobacco Smoker Type: Cigarettes Amount Used/How Often: 5-7 CIG/DAY Length of Time of Smoking/Using Tobacco: 17 years Have You Smoked in the Last Year: Yes Review of Systems Positive: Chest Pain - right chest wall radiating into upper chest and into right arm, pressure and stabbing Positive: Shortness Of Breath Positive: Diarrhea All Other Systems Reviewed And Are Negative: Yes Physical Exam - Summary Physical Exam Summary: Constitutional: Well-developed, Well-nourished, Alert. (-) Distressed Skin: Warm, Dry HENT: Normocephalic; Atraumatic Eyes: Conjunctiva normal Neck: Musculoskeletal ROM normal neck. (-) JVD, (-) Stridor, (-) Nuchal rigidity Cardio: Rhythm regular, rate normal, Heart sounds normal; Intact distal pulses; Radial pulses are 2+ and symmetric. (-) Murmur Pulmonary/Chest wall: Tenderness over right chest wall. Effort normal. (-) Respiratory distress, (-) Wheezes, (-) Rales Abd: Soft, (-) tenderness, (-) Distension, (-) Guarding, (-) Rebound Musculoskeletal: (-) Edema Neuro: Alert, Oriented x3 Psych: Mood and affect Normal Triage Information Reviewed: Yes Vital Signs On Initial Exam: Initial Vitals Temp Pulse Resp BP Pulse Ox 98.2 F 94 16 118/72 98 02/22/19 11:11 02/22/19 11:11 02/22/19 11:11 02/22/19 11:11 02/22/19 11:11 Vital Signs Reviewed: Yes Procedures - Sedation Patient Received Moderate/Deep Sedation with Procedure: No Diagnostics - Vital Signs Vital Signs Temp Pulse Resp BP Pulse Ox 02/22/19 11:11 98.2 F 94 16 118/72 98 - Laboratory Result Diagrams: 02/22/19 11:39 02/22/19 11:39 Lab Statement: Any lab studies that have been ordered have been reviewed, and results considered in the medical decision making process. - Radiology CXR Radiology Interpretation Completed By: Radiologist Summary of Radiographic Findings: Impression: No acute cardiopulmonary process is identified by radiograph. ED physician has reviewed this report. - EKG 1112 Cardiac Rate: NL - 87 BPM EKG Rhythm: Sinus Rhythm EKG Comparison: No Significant Change - Compared to previous on 11/18/18, no significant change. Summary of EKG Findings: An EKG at 1112 reveals normal sinus rhythm at 87 BPM, nml axis, nml intervals. No STEMI. No acute changes. ED physician has reviewed and interpreted this EKG. Re-Evaluation - Re-Evaluation First Eval Re-Evaluation Time: 13:03 Comment: trop neg, CXR neg. Patient resting NAD. Suspect viral syndrome Chest Pain Course/Dx - Course Course Of Treatment: 29-year-old female the history anxiety presents with pleuritic chest pain, cough, diarrhea. Chest Pain DDX: The patient is well appearing, with stable vitals. Given the patient's clinical presentation, highest on differential is atypical CP 2/2 viral syndrome. Although less likely , differential also includes the following: --Pneumothorax: Equal breath sounds , story inconsistent since gradual onset of symptoms. CXR shows no evidence of pneumothorax. Unlikely. --Cardiac tamponade: The history and physical are not concerning for tamponade. No Pulsus Paradoxus, no tachypnea. Unlikely. -- Mediastinitis or esophageal rupture: The history is not consistent, as the patient has had no recent history of significant wretching, instrumentation, or mediastinal surgeries. Unlikely. --Aortic dissection: The patient does not describe the classical tearing chest pain radiating into the back, and the CXR does not show mediastinal widening or other signs of aortic dissection. Unlikely. --PE: Vitals wnl (not hypoxic, tachycardic or tachypneic). Wells low risk, d-dimer negative. --ACS: The initial EKG shows no ischemic changes. The initial troponin is not elevated. Heart score - HEART Score. Based on a HEART score of 1 the patient has a low risk (<2% chance) of major adverse cardiac event within the next 6 weeks. I explained to the patient that based on the work -up today, her risk of heart attack is low and that he/she will be discharged with outpatient follow-up. Strict return precautions were discussed regarding worsening chest pain, new / atypical pain, shortness of breath, or any other serious concerns. Patient states she does not agree w diagnosis, and is upset with her care.I tried to offer patient medications including Tylenol and guaifenesin for cough and chest pain as well as lidocaine patch for chest wall pain. She declined and will seek care elsewhere. She is upset about only be given off 1 day work. Charge nurse spoke with patient at patient request. - Diagnoses Provider Diagnoses: Pleuritic chest pain, Viral syndrome Discharge ED - Sign-Out/Discharge Documenting (check all that apply): Patient Departure - Patient will be discharged home. - Discharge Plan Condition: Stable Disposition: HOME Patient Education Materials: Chest Pain (DC), Pleurisy (ED), Viral Syndrome (ED ) Forms: *Work Release Referrals: [facility] [Outside] - 3 Days Additional Instructions: You were seen in the emergency department for chest pain, cough, diarrhea. You likely have a virus causing your symptoms. Your chest x-ray did not show any evidence of pneumonia. Your lab work was normal. Please follow up with your primary care doctor in the next 2-3 days and return to the emergency department for worsening pain, passing out, trouble breathing or concerning symptoms. It was a pleasure taking care of you today. - Billing Disposition and Condition Condition: STABLE Disposition: Home - Attestation Statements Document Initiated by Margie: Yes Documenting Scribe: Elvia Senior Provider For Whom Margie is Documenting (Include Credential): Dr. Anthony Ruffin MD Scribe Attestation: IElvia scribed for Dr. Anthony Ruffin MD on 02/22/19 at 1343. Scribe Documentation Reviewed: Yes Provider Attestation: The documentation as recorded by the Elvia chowdary accurately reflects the service I personally performed and the decisions made by me, Dr. Anthony Ruffin MD Status of Scribalana Document: Viewed
[2019-02-22 11:47] LABS: ABS Eosinophils 0.3 10^3/ul (0-0.6); ABS Lymphocytes 3.2 10^3/ul (1.0-4.8); ABS Monocytes 0.7 10^3/ul (0-0.8); ABS Neutrophils 5.2 10^3/ul (1.5-7.7); Hematocrit 40 % (35-47); Hemoglobin 13.6 g/dL (12.0-16.0); Lymphocyte % 34.2 %; Mean Corpuscular HGB Conc 34 g/dL (31-36); Mean Corpuscular Hemoglobin 31 pg (27-31); Mean Corpuscular Volume 91 fL (80-97); Mean Platelet Volume 10.7 fL (7.4-10.4); Platelet Count 172 10^3/uL (150-450); Red Blood Count 4.36 10^6 /uL (3.70-4.87); Red Cell Distribution Width 13 % (10-15); White Blood Count 9.4 10^3/uL (3.5-10.8)
[2019-02-22 12:42] LABS: Albumin 4.1 g/dL (3.2-5.2); Albumin/Globulin Ratio 1.9 (1-3); BUN/Creatinine Ratio 28.1 (8-20); Calcium 9.3 mg/dL (8.6-10.3); EGFR African American 149.7 (>60); EGFR Non-African American 123.7 (>60); Globulin 2.2 g/dL (2-4); Total Bilirubin 0.3 mg/dL (0.2-1.0); Total Protein 6.3 g/dL (6.4-8.9)
[2019-02-22] MEDS ORDERED: Acetaminophen TAB* 325 MG PO ONE (13:01)
[2019-02-22] MEDS ORDERED: Lidocaine PATCH 5%* 1 PATCH TRANSDERM ONE (13:21)
[2019-02-22] MEDS ORDERED: guaiFENesin ER TAB 600 MG PO ONE (13:22)
[2019-02-22 13:42] VITALS: BP 105/56
[2019-02-22] MEDS ORDERED: Lidocaine Patch REMOVE* 1 NOTE MISC SCH (21:00)
== END 2019-02-22 13:41 | disposition home or self-care (01) ==
LOC: ED 11:07
DX: B34.9 Viral infection, unspecified (principal); R07.81 Pleurodynia; R06.02 Shortness of breath; Z88.6 Allergy status to analgesic agent; Z88.5 Allergy status to narcotic agent; Z88.0 Allergy status to penicillin; Z82.49 Family history of ischemic heart disease and other diseases of the circulatory system; Z83.3 Family history of diabetes mellitus; Z83.6 Family history of other diseases of the respiratory system; Z81.8 Family history of other mental and behavioral disorders; F17.210 Nicotine dependence, cigarettes, uncomplicated
CPT/HCPCS: 36415; 71046; 80053; 84484; 85025; 85379; 93005; 99282; A9270-GY

== ENCOUNTER 2019-03-01 09:45 | Emergency (ER) | payer OTHER ==
[2019-03-01 09:59] VITALS: BP 133/58
--- NOTE | 2019-03-01 10:49 | UC ---
Respiratory Complaint HPI - HPI Summary HPI Summary: WOKE UP THIS MORNING WITH EYES CRUSTED SHUT. COMPLAINING OF COUGH, CONGESTION, SORE THROAT, EAR PAIN, HEADACHE, BODY ACHES. PEOPLE AT WORK WITH FLU. NO FLU SHOT THIS SEASON. ASKING FOR A WORK NOTE. - History of Current Complaint Chief Complaint: UCGeneralIllness Stated Complaint: NAUSEA DIARRHEA SORE THROAT EYE ISSUE Time Seen by Provider: 03/01/19 10:31 Hx Obtained From: Patient Hx Last Menstrual Period: 02/13/19 Onset/Duration: Sudden Onset, Lasting Hours, Still Present Timing: Constant Severity Initially: Moderate Severity Currently: Moderate Pain Intensity: 9 Pain Scale Used: 0-10 Numeric Character: Cough: Nonproductive Aggravating Factors: Nothing Alleviating Factors: Nothing Associated Signs And Symptoms: Positive: Chills, URI, Nasal Congestion. Negative: Dyspnea, Fever - Allergies/Home Medications Allergies/Adverse Reactions: Allergies Allergy/AdvReac Type Severity Reaction Status Date / Time hydrocodone [From Vicodin] Allergy Hives/Diff. Verified 03/01/19 10:01 Breathing/I tching ibuprofen Allergy Swelling Verified 03/01/19 10:01 Of Face,Lips,& Throat Penicillins Allergy Swelling Verified 03/01/19 10:01 Of Face,Lips,& Throat PMH/Surg Hx/FS Hx/Imm Hx Respiratory History: Asthma Other History Of: Negative For: HIV, Hepatitis B, Hepatitis C, Anticoagulant Therapy - Surgical History Surgical History: Yes Surgery Procedure, Year, and Place: Tonsillectomy adenoidectomy. C section X4, Tubal Ligation 04/19/15 - Family History Known Family History: Positive: Cardiac Disease - mother had minor [place] at 46 y/o , father with [place], Hypertension, Diabetes, Respiratory Disease - Chronic bronchitis, Other - migraines mom had brain CA, depression, anxiety, mom has LUPUS - Social History Alcohol Use: Occasionally Substance Use Type: Marijuana Substance Use Comment - Amount & Last Used: occasionally Smoking Status (MU): Light Every Day Tobacco Smoker Type: Cigarettes Amount Used/How Often: 5-7 CIG/DAY Length of Time of Smoking/Using Tobacco: 17 years Have You Smoked in the Last Year: Yes Household Exposure Type: Cigarettes - Immunization History Most Recent Influenza Vaccination: declined for this year Most Recent Tetanus Shot: UTD Most Recent Pneumonia Vaccination: none Review of Systems All Other Systems Reviewed And Are Negative: Yes Constitutional: Positive: Chills, Fatigue Eyes: Positive: Drainage, Eye Redness ENT: Positive: Sore Throat, Ear Ache, Nasal Discharge Respiratory: Positive: Cough Cardiovascular: Positive: Negative Gastrointestinal: Positive: Nausea Genitourinary: Positive: Negative Musculoskeletal: Positive: Myalgia Physical Exam Triage Information Reviewed: Yes Appearance: Well-Appearing, No Pain Distress, Well-Nourished Vital Signs: Initial Vital Signs Temp 98.7 F 03/01/19 09:56 Pulse 81 03/01/19 09:56 Resp 18 03/01/19 09:56 BP 133/58 03/01/19 09:56 Pulse Ox 99 03/01/19 09:56 Laboratory Tests 03/01/19 10:49 Influenza A (Rapid) Negative Influenza B (Rapid) Negative Vital Signs Reviewed: Yes Eyes: Positive: Conjunctiva Clear ENT: Positive: Hearing grossly normal, Pharynx normal, TMs normal Neck: Positive: Supple, Nontender, No Lymphadenopathy Respiratory Exam: Normal Cardiovascular Exam: Normal Abdomen Description: Positive: Soft Musculoskeletal: Positive: No Edema Neurological: Positive: Alert Psychological: Positive: Age Appropriate Behavior Skin: Negative: Rashes Respiratory Course/Dx - Course Course Of Treatment: FLU SWAB NEGATIVE HOWEVER PATIENT REQUESTING TREATMENT WITH TAMIFLU BASED ON CLOSE CONTACT WITH COWORKERS WHO HAVE SWABBED POSITIVE. TAMIFLU SENT TO PHARMACY. WILL ALSO TREAT CONJUNCTIVITIS WITH CIPRO EYEDROPS. ENCOURAGED REST , HYDRATION, OTC MEDS NEEDED. - Differential Dx/Diagnosis Provider Diagnosis: Acute viral syndrome, Bilateral conjunctivitis Discharge ED - Sign-Out/Discharge Documenting (check all that apply): Patient Departure All imaging exams completed and their final reports reviewed: No Studies - Discharge Plan Condition: Stable Disposition: HOME Prescriptions: Ciprofloxacin 0.3% OPTH.KIANA* [Cipro 0.3% Opth*] 1 drop BOTH EYES Q4H #1 btl Oseltamivir CAP* [Tamiflu CAP*] 75 mg PO BID #10 cap Patient Education Materials: Viral Syndrome (ED), Conjunctivitis (ED) Forms: *Work Release Referrals: No Primary Care Phys,NOPCP [Primary Care Provider] - Additional Instructions: FLU SWAB NEGATIVE. GIVEN YOUR CLOSE CONTACT WITH FLU WILL COVER YOU WITH TAMIFLU. YOUR SYMPTOMS ARE LIKELY VIRALLY MEDIATED AND SHOULD RESOLVE ON THEIR OWN WITH TIME ANYWAY. NO INDICATION FOR ANTIBIOTICS AT PRESENT. REST, HYDRATE, OTC MEDS NEEDED. SEEK FOLLOW-UP IF YOU ARE NOT IMPROVING OVER THE NEXT 1-2 WEEKS. USE OTC AFRIN FOR NASAL CONGESTION. 2 SPRAYS IN EACH NOSTRIL TWICE DAILY NEEDED. DO NOT USE FOR MORE THAN 3-4 DAYS IN A ROW TO PREVENT DEVELOPING REBOUND CONGESTION. EYE DROPS TO COVER FOR CONJUNCTIVITIS. - Billing Disposition and Condition Condition: STABLE Disposition: Home
[2019-03-01 11:01] LABS: Influenza A Molecular NEGATIVE (Negative); Influenza B Molecular NEGATIVE (Negative)
== END 2019-03-01 11:13 | disposition home or self-care (01) ==
LOC: UCEAST 09:45
DX: B34.9 Viral infection, unspecified (principal); H10.9 Unspecified conjunctivitis; H92.09 Otalgia, unspecified ear; R09.81 Nasal congestion; R53.83 Other fatigue; J45.909 Unspecified asthma, uncomplicated; F17.210 Nicotine dependence, cigarettes, uncomplicated; Z88.5 Allergy status to narcotic agent; Z88.8 Allergy status to other drugs, medicaments and biological substances; Z88.0 Allergy status to penicillin
CPT/HCPCS: 99212; G0463

== ENCOUNTER 2019-03-17 17:20 | Emergency (ER) | payer OTHER ==
--- NOTE | 2019-03-17 17:49 | ED ---
Substance Abuse/Use - HPI Summary HPI Summary: This pt is a 29 Y/O F presenting to [facility] brought in by EMS after smoking a substance. Per EMS they believe it to be K2. The pt currently complains of abdominal pain but is hard to arouse. En route to [facility] she was vomiting. She states no alleviating or aggravating factors. She has no pertinent PMHx. - History Of Current Complaint Chief Complaint: EDSubstanceAbuse Stated Complaint: FEVER PER EMS Time Seen by Provider: 03/17/19 17:42 Hx Obtained From: Patient, EMS Hx Last Menstrual Period: 02/13/19 Onset/Duration of Drug/ETOH Abuse: Minutes - [employer] Ingestion History: Type/Name Of Drug - possibly K2 Overdose Characteristics: Inhalation Character: Lethargic Aggravating Factor(s): Nothing Alleviating Factor(s): Nothing Associated Signs And Symptoms: Nausea, Vomiting, Other: - abdominal pain, somnolence - Allergies/Home Medications Allergies/Adverse Reactions: Allergies Allergy/AdvReac Type Severity Reaction Status Date / Time hydrocodone [From Vicodin] Allergy Hives/Diff. Verified 03/01/19 10:01 Breathing/I tching ibuprofen Allergy Swelling Verified 03/01/19 10:01 Of Face,Lips,& Throat Penicillins Allergy Swelling Verified 03/01/19 10:01 Of Face,Lips,& Throat PMH/Surg Hx/FS Hx/Imm Hx Previously Healthy: Yes Endocrine/Hematology History: Denies: Hx Anticoagulant Therapy, Hx Diabetes, Hx Thyroid Disease Cardiovascular History: Denies: Hx Congestive Heart Failure, Hx Deep Vein Thrombosis, Hx Hypertension , Hx Myocardial Infarction, Hx Pacemaker/ICD, Hx Peripheral Vascular Disease Respiratory History: Reports: Hx Asthma, Hx Chronic Bronchitis Denies: Hx Chronic Obstructive Pulmonary Disease (COPD), Hx Lung Cancer, Hx Pneumonia, Hx Pulmonary Embolism GI History: Reports: Other GI Disorders - hx bladder infection Denies: Hx Gall Bladder Disease, Hx Gastrointestinal Bleed, Hx Ulcer, Hx Urosepsis History: Reports: Hx Kidney Infection, Hx Kidney Stones, Hx Renal Disease - Her last kidney/bladder infection was about a year ago., Other Problems/ Disorders - UNABLE TO VOID TODAY Musculoskeletal History: Denies: Hx Arthritis, Hx Rheumatoid Arthritis, Hx Osteoporosis Sensory History: Denies: Hx Cataracts, Hx Contacts or Glasses, Hx Glaucoma, Hx Hearing Aid Opthamlomology History: Denies: Hx Cataracts, Hx Contacts or Glasses, Hx Glaucoma Neurological History: Reports: Hx Migraine Denies: Hx Dementia, Hx Headaches, Hx Seizures, Hx Transient Ischemic Attacks (TIA) Psychiatric History: Reports: Hx Anxiety, Hx Depression, Hx Post Traumatic Stress Disorder, Hx Bipolar Disorder - She takes depakote for this., Other Psychiatric Issues/Disorders - bipolar Denies: Hx Panic Disorder, Hx Schizophrenia - Cancer History Hx Chemotherapy: No Hx Radiation Therapy: No - Surgical History Surgical History: Yes Surgery Procedure, Year, and Place: Tonsillectomy adenoidectomy. C section X4, Tubal Ligation 04/19/15 - Immunization History Date of Tetanus Vaccine: Unknown Date of Influenza Vaccine: None Immunizations Up to Date: Yes Infectious Disease History: No Infectious Disease History: Reports: Hx of Known/Suspected MRSA - ? hx of leg wound Denies: Hx Clostridium Difficile, Hx Hepatitis, Hx Human Immunodeficiency Virus (HIV), Hx Shingles, Hx Tuberculosis, Hx Known/Suspected VRE, Hx Known/ Suspected VRSA, History Other Infectious Disease, Traveled Outside the [place] in Last 30 Days - Family History Known Family History: Positive: Cardiac Disease - mother had minor [place] at 46 y/o , father with [place], Hypertension, Diabetes, Respiratory Disease - Chronic bronchitis, Other - migraines mom had brain CA, depression, anxiety, mom has LUPUS - Social History Occupation: Employed Full-time Lives: With Family Alcohol Use: Occasionally Hx Substance Use: Yes Substance Use Type: Reports: Marijuana Substance Use Comment - Amount & Last Used: occasionally Hx Tobacco Use: Yes Smoking Status (MU): Light Every Day Tobacco Smoker Type: Cigarettes Amount Used/How Often: 5-7 CIG/DAY Length of Time of Smoking/Using Tobacco: 17 years Have You Smoked in the Last Year: Yes Review of Systems Positive: Other - somnolence Positive: Abdominal Pain, Vomiting, Nausea All Other Systems Reviewed And Are Negative: Yes Physical Exam - Summary Physical Exam Summary: Appearance: The patient is well-nourished in no acute distress and in no acute pain. Skin: The skin is warm and dry and skin color reflects adequate perfusion. HEENT: The head is normocephalic and atraumatic. The pupils are equal and reactive. The conjunctivae are clear and without drainage. Nares are patent and without drainage. Mouth reveals moist mucous membranes and the throat is without erythema and exudate. The external ears are intact. The ear canals are patent and without drainage. The tympanic membranes are intact. Neck: The neck is supple with full range of motion and non-tender. There are no carotid bruits. There is no neck vein distension. Respiratory: Chest is non-tender. Lungs are clear to auscultation and breath sounds are symmetrical and equal. Cardiovascular: Heart is regular rate and rhythm. There is no murmur or rub auscultated. There is no peripheral edema and pulses are symmetrical and equal. Abdomen: The abdomen is soft and non-tender. There are normal bowel sounds heard in all four quadrants and there is no organomegaly palpated. Musculoskeletal: There is no back tenderness noted. Extremities are non-tender with full range of motion. There is good capillary refill. There is no peripheral edema or calf tenderness elicited. Neurological: Patient is alert and oriented to person, place and time. The patient has symmetrical motor strength in all four extremities. Cranial nerves are grossly intact. Deep tendon reflexes are symmetrical and equal in all four extremities. Psychiatric: The patient has an appropriate affect and does not exhibit any anxiety or depression. Triage Information Reviewed: Yes Vital Signs On Initial Exam: Initial Vitals Pulse Resp BP Pulse Ox 75 15 121/73 96 03/17/19 17:14 03/17/19 17:14 03/17/19 17:14 03/17/19 17:14 Vital Signs Reviewed: Yes Procedures - Sedation Patient Received Moderate/Deep Sedation with Procedure: No Diagnostics - Vital Signs Vital Signs Temp Pulse Resp BP Pulse Ox 03/17/19 17:36 75 15 96 03/17/19 17:26 98.8 F 77 16 121/73 96 03/17/19 17:14 75 15 121/73 96 - Laboratory Lab Statement: Any lab studies that have been ordered have been reviewed, and results considered in the medical decision making process. Course/Dx - Course Course Of Treatment: Ms. Huffman was allowed to rest here for several hours in the emergency department. At that point she [place] easily and had no complaints. She did request to be allowed to sleep here a little bit longer and I complied. At this point we are waiting for wake up and I suspect she'll be discharged at that time. - Diagnoses Provider Diagnoses: Other psychoactive substance use, unspecified with intoxication, uncomplicated Discharge ED - Sign-Out/Discharge Documenting (check all that apply): Sign-Out Patient Signing out patient TO: Millie Ledbetter - Discharge Plan Condition: Stable Referrals: No Primary Care Phys,NOPCP [Primary Care Provider] - - Billing Disposition and Condition Condition: STABLE - Attestation Statements Document Initiated by Telmaibe: Yes Documenting Scribe: Boaz Weiss Provider For Whom Scribe is Documenting (Include Credential): Jose Martini MD Scribe Attestation: IBoaz, scribed for Jose Martini MD on 03/17/19 at 2138. Scribe Documentation Reviewed: Yes Provider Attestation: The documentation as recorded by the Boaz chowdary accurately reflects the service I personally performed and the decisions made by me, Jose Martini MD Status of Scribe Document: Viewed
--- NOTE | 2019-03-17 22:13 | ED ---
Progress - Progress Note Progress Note: Receiving sign-out from Dr. Martini at shift change 2200 pending sobriety. Patient became sober and was ready to go home. Plan for discharge was discussed with the patient and she was agreeable with this plan. Course/Dx - Course Course Of Treatment: Receiving sign-out from Dr. Martini at shift change 2200 pending sobriety. Patient became sober and was ready to go home. Plan for discharge was discussed with the patient and she was agreeable with this plan. - Diagnoses Provider Diagnoses: Other psychoactive substance use, unspecified with intoxication, uncomplicated , Abdominal pain Discharge ED - Sign-Out/Discharge Documenting (check all that apply): Patient Departure - Discharge, Receiving Sign-Out Receiving patient FROM: Jose Martini - Discharge Plan Condition: Stable Disposition: HOME Patient Education Materials: Acute Abdominal Pain (ED) Referrals: [facility] [Outside] Additional Instructions: Return to ED with new or worsening symptoms. - Billing Disposition and Condition Condition: STABLE Disposition: Home - Attestation Statements Document Initiated by Margie: Yes Documenting Scribe: Luis Gamez Provider For Whom Margie is Documenting (Include Credential): Millie Ledbetter MD Scribe Attestation: Luis Mckinney, scribed for Millie Ledbetter MD on 03/17/19 at 2333. Scribe Documentation Reviewed: Yes Provider Attestation: The documentation as recorded by the Luis chowdary accurately reflects the service I personally performed and the decisions made by me, Millie Ledbetter MD Status of Scribe Document: Viewed
[2019-03-17 22:32] VITALS: BP 114/63
== END 2019-03-17 22:31 | disposition home or self-care (01) ==
LOC: ED 17:20
DX: F19.120 Other psychoactive substance abuse with intoxication, uncomplicated (principal); R10.9 Unspecified abdominal pain; R11.2 Nausea with vomiting, unspecified; Z88.6 Allergy status to analgesic agent; Z88.5 Allergy status to narcotic agent; Z88.0 Allergy status to penicillin; F17.210 Nicotine dependence, cigarettes, uncomplicated
CPT/HCPCS: 99283

== ENCOUNTER 2019-03-31 20:38 | Emergency (ER) | payer OTHER ==
[2019-03-31] MEDS ORDERED: Ondansetron INJ* 2 MG/ML VIAL IV ONE (22:31)
[2019-03-31] MEDS ORDERED: NS 0.9% 1000 ML** 1,000 ML IV ONE (22:31)
--- NOTE | 2019-03-31 22:36 | ED ---
HPI Chest Pain - HPI Summary HPI Summary: Vision complains of right side chest pain times a few weeks. Pain described as constant with spikes. Not related to exertion. Has been seen here previously for same diagnosed with pleurisy. Patient also complains of nausea vomiting and diarrhea with abdominal cramping starting today. History of sibling with gastroenteritis. Also wants STD testing, believes her boyfriend's sleeping with other women. Denies fever, cough, sore throat, SOB, change in urine, vaginal symptoms. Medical history is none. Abdominal surgical history C- section 4, tubal ligation. - History of Current Complaint Chief Complaint: EDGeneral Time Seen by Provider: 03/31/19 21:56 Hx Obtained From: Patient Hx Last Menstrual Period: 02/13/19 Onset/Duration: Started Weeks Ago Timing: Constant Initial Severity: Moderate Current Severity: Severe Pain Intensity: 10 Pain Scale Used: 0-10 Numeric Chest Pain Location: Right Anterior Chest Pain Radiates To:: Shoulder - right Aggravating Factor(s): Nothing Alleviating Factor(s): Nothing Associated Signs and Symptoms: Positive: Chest Pain, Nausea, Abdominal Pain, Vomiting - Allergy/Home Medications Allergies/Adverse Reactions: Allergies Allergy/AdvReac Type Severity Reaction Status Date / Time hydrocodone [From Vicodin] Allergy Hives/Diff. Verified 03/31/19 22:07 Breathing/I tching ibuprofen Allergy Swelling Verified 03/31/19 22:07 Of Face,Lips,& Throat Penicillins Allergy Swelling Verified 03/31/19 22:07 Of Face,Lips,& Throat PMH/Surg Hx/FS Hx/Imm Hx Endocrine/Hematology History: Denies: Hx Anticoagulant Therapy, Hx Diabetes, Hx Thyroid Disease Cardiovascular History: Denies: Hx Congestive Heart Failure, Hx Deep Vein Thrombosis, Hx Hypertension , Hx Myocardial Infarction, Hx Pacemaker/ICD, Hx Peripheral Vascular Disease Respiratory History: Reports: Hx Asthma, Hx Chronic Bronchitis Denies: Hx Chronic Obstructive Pulmonary Disease (COPD), Hx Lung Cancer, Hx Pneumonia, Hx Pulmonary Embolism GI History: Reports: Other GI Disorders - hx bladder infection Denies: Hx Gall Bladder Disease, Hx Gastrointestinal Bleed, Hx Ulcer, Hx Urosepsis History: Reports: Hx Kidney Infection, Hx Kidney Stones, Hx Renal Disease - Her last kidney/bladder infection was about a year ago., Other Problems/ Disorders - UNABLE TO VOID TODAY Musculoskeletal History: Denies: Hx Arthritis, Hx Rheumatoid Arthritis, Hx Osteoporosis Sensory History: Denies: Hx Cataracts, Hx Contacts or Glasses, Hx Glaucoma, Hx Hearing Aid Opthamlomology History: Denies: Hx Cataracts, Hx Contacts or Glasses, Hx Glaucoma Neurological History: Reports: Hx Migraine Denies: Hx Dementia, Hx Headaches, Hx Seizures, Hx Transient Ischemic Attacks (TIA) Psychiatric History: Reports: Hx Anxiety, Hx Depression, Hx Post Traumatic Stress Disorder, Hx Bipolar Disorder - She takes depakote for this., Other Psychiatric Issues/Disorders - bipolar Denies: Hx Panic Disorder, Hx Schizophrenia - Cancer History Hx Chemotherapy: No Hx Radiation Therapy: No - Surgical History Surgery Procedure, Year, and Place: Tonsillectomy adenoidectomy. C section X4, Tubal Ligation 04/19/15 - Immunization History Date of Tetanus Vaccine: Unknown Date of Influenza Vaccine: None Infectious Disease History: No Infectious Disease History: Reports: Hx of Known/Suspected MRSA - ? hx of leg wound Denies: Hx Clostridium Difficile, Hx Hepatitis, Hx Human Immunodeficiency Virus (HIV), Hx Shingles, Hx Tuberculosis, Hx Known/Suspected VRE, Hx Known/ Suspected VRSA, History Other Infectious Disease, Traveled Outside the [place] in Last 30 Days - Family History Known Family History: Positive: Cardiac Disease - mother had minor [place] at 46 y/o , father with [place], Hypertension, Diabetes, Respiratory Disease - Chronic bronchitis, Other - migraines mom had brain CA, depression, anxiety, mom has LUPUS - Social History Alcohol Use: Occasionally Hx Substance Use: Yes Substance Use Type: Reports: Marijuana Substance Use Comment - Amount & Last Used: occasionally Hx Tobacco Use: Yes Smoking Status (MU): Light Every Day Tobacco Smoker Type: Cigarettes Amount Used/How Often: 5-7 CIG/DAY Length of Time of Smoking/Using Tobacco: 17 years Have You Smoked in the Last Year: Yes Review of Systems Constitutional: Negative Eyes: Negative ENT: Negative Positive: Chest Pain Respiratory: Negative Positive: Abdominal Pain, Vomiting, Diarrhea, Nausea Genitourinary: Negative Musculoskeletal: Negative Skin: Negative Neurological: Negative Psychological: Normal All Other Systems Reviewed And Are Negative: Yes Physical Exam - Summary Physical Exam Summary: Abdomen soft nontender. Chest pain reproducible on right side. Triage Information Reviewed: Yes Vital Signs On Initial Exam: Initial Vitals Temp Pulse Resp BP Pulse Ox 97.6 F 90 20 113/58 99 03/31/19 20:41 03/31/19 20:41 03/31/19 20:41 03/31/19 20:41 03/31/19 20:41 Vital Signs Reviewed: Yes Appearance: Positive: Well-Appearing Skin: Positive: Warm Head/Face: Positive: Normal Head/Face Inspection Eyes: Positive: Normal Neck: Positive: Supple Respiratory/Lung Sounds: Positive: Clear to Auscultation Cardiovascular: Positive: Normal Abdomen Description: Positive: Nontender Pelvic Exam: Positive: External Exam Normal, Blood, Cervicitis, Tender w/ Cervical Motion. Negative: Discharge, Lesions, Mass, Tender Adnexa, Tender Uterus, Ulcers Musculoskeletal: Positive: Normal Neurological: Positive: Normal Psychiatric: Positive: Normal AVPU Assessment: Alert - Bend Coma Scale Best Eye Response: 4 - Spontaneous Best Motor Response: 6 - Obeys Commands Best Verbal Response: 5 - Oriented Coma Scale Total: 15 Procedures - Sedation Patient Received Moderate/Deep Sedation with Procedure: No Diagnostics - Vital Signs Vital Signs Temp Pulse Resp BP Pulse Ox 03/31/19 22:02 82 99/45 97 03/31/19 22:01 84 97 03/31/19 20:41 97.6 F 90 20 113/58 99 - Laboratory Result Diagrams: 03/31/19 22:40 03/31/19 22:39 Lab Statement: Any lab studies that have been ordered have been reviewed, and results considered in the medical decision making process. Chest Pain Course/Dx - Course Course Of Treatment: Vision complains of right side chest pain times a few weeks. Pain described as constant with spikes. Not related to exertion. Has been seen here previously for same diagnosed with pleurisy. Patient also complains of nausea vomiting and diarrhea with abdominal cramping starting today. History of sibling with gastroenteritis. Also wants STD testing, believes her boyfriend's sleeping with other women. Denies fever, cough, sore throat, SOB, change in urine, vaginal symptoms. Medical history is none. Abdominal surgical history 4, tubal ligation. Vital signs within normal limits. Labs unremarkable. Diagnosed with gastroenteritis and pleurisy. Patient cannot take ibuprofen. Rx for prednisone as treatment for pleurisy. Rx for Zofran 4 gastroenteritis. Vaginal cultures pending. - Diagnoses Provider Diagnoses: Gastroenteritis, Pleurisy Discharge ED - Sign-Out/Discharge Documenting (check all that apply): Patient Departure - Discharge Plan Condition: Stable Disposition: HOME Prescriptions: Ondansetron ODT TAB* [Zofran 4 MG Odt TAB*] 4 mg PO Q8H PRN 4 Days #14 tab.odt PRN Reason: Nausea predniSONE 20 mg TAB [Deltasone 20 MG TAB*] 40 mg PO DAILY 5 Days #10 tab Patient Education Materials: Pleurisy (ED), Gastroenteritis (ED) Referrals: No Primary Care Phys,NOPCP [Primary Care Provider] - Additional Instructions: Take prednisone as directed for chest pain. Take Zofran as directed for nausea if needed. Drink plenty of fluids to maintain hydration. You will be contacted if pelvic swab cultures are positive for infection. Follow up with primary care. Return to the ED for any new or worsening symptoms. - Billing Disposition and Condition Condition: STABLE Disposition: Home
[2019-03-31 22:46] LABS: ABS Basophils 0.1 10^3/ul (0-0.2); ABS Eosinophils 0.5 10^3/ul (0-0.6); ABS Lymphocytes 4.8 10^3/ul (1.0-4.8); ABS Monocytes 0.8 10^3/ul (0-0.8); ABS Neutrophils 5.7 10^3/ul (1.5-7.7); Eosinophil % 4.1 %; Hematocrit 40 % (35-47); Hemoglobin 13.8 g/dL (12.0-16.0); Lymphocyte % 40.8 %; Mean Corpuscular HGB Conc 34 g/dL (31-36); Mean Corpuscular Hemoglobin 31 pg (27-31); Mean Corpuscular Volume 91 fL (80-97); Mean Platelet Volume 10.4 fL (7.4-10.4); Nucleated Red Blood Cells % 0.1; Platelet Count 192 10^3/uL (150-450); Red Blood Count 4.41 10^6 /uL (3.70-4.87); Red Cell Distribution Width 12 % (10-15); White Blood Count 11.8 10^3/uL (3.5-10.8)
[2019-03-31 23:01] LABS: Urine Appearance Cloudy; Urine Bacteria Absent (Absent); Urine Bilirubin Negative (Negative); Urine Blood Negative (Negative); Urine Color Yellow; Urine Glucose Negative (Negative); Urine Ketones Negative (Negative); Urine Nitrite Negative (Negative); Urine Protein Negative (Negative); Urine Red Blood Cell Trace(0-2/hpf) (Absent); Urine Specific Gravity 1.023 (1.010-1.030); Urine Squamous Epithelial Cell Present (Absent); Urine Urobilinogen Negative (Negative); Urine White Blood Cell Trace(0-5/hpf) (Absent)
[2019-03-31 23:03] LABS: ALT 11 U/L (7-52); AST 12 U/L (13-39); Albumin 3.8 g/dL (3.2-5.2); Albumin/Globulin Ratio 1.7 (1-3); Alkaline Phosphatase 72 U/L (34-104); Anion Gap 6 mmol/L (2-11); Blood Urea Nitrogen 12 mg/dL (6-24); C Reactive Protein 2.33 mg/L (<8.01); CO2 Carbon Dioxide 25 mmol/L (22-32); Calcium 8.6 mg/dL (8.6-10.3); Chloride 108 mmol/L (101-111); EGFR African American 133.4 (>60); EGFR Non-African American 110.2 (>60); Globulin 2.3 g/dL (2-4); Glucose 105 mg/dL (70-100); Potassium 3.6 mmol/L (3.5-5.0); Sodium 139 mmol/L (135-145); Total Protein 6.1 g/dL (6.4-8.9)
[2019-03-31 23:05] LABS: Troponin I 0.01 ng/mL (<0.03)
[2019-03-31 23:09] LABS: HCG Pregnancy < 0.60 mIU/mL
[2019-03-31 23:42] LABS: HIV 4th Generation Nonreactive (Nonreactive)
[2019-04-01 03:38] VITALS: BP 118/61
[2019-04-01 13:59] LABS: Chlamydia trachomatis NAA Negative (Negative); Neisseria gonorrhoeae (GC) NAA Negative (Negative)
[2019-04-01 14:13] LABS: Trichomonas vag NAA Female Positive (Negative)
--- NOTE | 2019-04-02 06:23 | ED ---
Imaging and Labs Follow Up Follow Up Type: Labs/Cultures Labs/Culture Result: trichomonas and gardnerella positive Patient Communication/Plan: sent script for flagyl 500mg bid x7days. left vm at 7:37am about medication addition. Provider Diagnoses: Gastroenteritis, Pleurisy
== END 2019-04-01 00:05 | disposition home or self-care (01) ==
LOC: ED 20:38
DX: K52.9 Noninfective gastroenteritis and colitis, unspecified (principal); R09.1 Pleurisy; A59.01 Trichomonal vulvovaginitis; B96.89 Other specified bacterial agents as the cause of diseases classified elsewhere; Z88.6 Allergy status to analgesic agent; Z88.5 Allergy status to narcotic agent; Z88.0 Allergy status to penicillin; F17.210 Nicotine dependence, cigarettes, uncomplicated
CPT/HCPCS: 36415; 71046; 80053; 81003; 81015; 83605; 83690; 84484; 84702; 85025; 86140; 87086; 87389; 87480; 87491; 87510; 87591; 87661; 93005; 96361; 96374; 99283; J2405; J7512

== ENCOUNTER 2019-04-27 15:42 | Emergency (ER) | payer OTHER ==
--- OUTSIDE RECORDS SUMMARY | 2019-04-27 16:00 | XMS REPORT ---
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, unspecified Dysthymia 17118855 SNOMED-CT Active 3-22 Dysthymia 92574016 SNOMED-CT Active 3-22 Cannabis use [id number] SNOMED-CT Active disorder, 5-10 Moderate Relevant diagnostic tests/laboratory data Narrative No Information Procedures Procedure Code CodeSystem Target Date of Status Service Device Device Device Name Site Procedure Delivery Code Name UID Location Psychother [id number] SNOMED-CT () 2018-09-27 completed Mental apy, 45 4 Health- minutes [place] with [facility] patient [address] [place] [address], [id number] [phone] Psychother [id number] SNOMED-CT () 2018-10-18 completed Mental apy, 45 4 Health- minutes [place] with [facility] patient [address] [place] [address], [id number] [phone] Psychother [id number] SNOMED-CT () 2018-10-25 completed Mental apy, 45 4 Health- minutes [place] with [facility] patient [address] [place] [address], [id number] [phone] Psychother [id number] SNOMED-CT () 2018-11-08 completed Mental apy, 45 4 Health- minutes [place] with [facility] patient [address] [place] [address], [id number] [phone] Psychother [id number] SNOMED-CT () 2018-12-13 completed Mental apy, 45 4 Health- minutes [place] with [facility] patient [address] [place] [address], [id number] [phone] Psychother [id number] SNOMED-CT () 2018-12-20 completed Mental apy, 45 4 Health- minutes [place] with [facility] patient [address] [place] [address], [id number] [phone] Psychother [id number] SNOMED-CT () 2019-01-03 completed Mental apy, 45 4 Health- minutes [place] with [facility] patient [address] [place] [address], [id number] [phone] Psychother [id number] SNOMED-CT () 2019-01-10 completed Mental apy, 45 4 Health- minutes [place] with [facility] patient [address] [place] [address], [phone] [phone] SNOMED-CT () 2019-01-31 completed Mental Health- [place], [phone] SNOMED-CT () 2018-07-21 completed Mental Health- [place], [phone] [phone] SNOMED-CT () 2018-08-12 completed Mental Health- [place], [phone] Encounters/Encounter Diagnoses Encounter Name Encounter Diagnosis Diagnosis Diagnosis Date of Service Code Code Name CodeSystem Diagnosis Delivery Location [facility] [id number] Post-traumati SNOMED-CT 2019-01-31 Behavioral Individual 30 c stress Health min disorder, [place] [id number] unspecified [place], [place], [phone] Vital Signs No Information Social History Element Description Description Start End Code CodeSystem AdditionalInfo Date Date SexAssignedAtBirth Female 1989-03 F AdministrativeGender 04-21 Hospital Discharge Instructions Reason For Referral Medical Equipment FDA Assessments
--- NOTE | 2019-04-27 17:23 | ED ---
Lower Extremity - HPI Summary HPI Summary: This patient is a 29-year-old obese female presenting to the ED with left lateral ankle injury. Patient says she was walking across the street when she twisted her ankle is somewhat almost hit her. She is unable to bear weight. Pain is rated a 10/10. - History of Current Complaint Chief Complaint: EDExtremityLower Stated Complaint: LEFT ANKLE INJURY PER PT Time Seen by Provider: 04/27/19 16:08 Hx Obtained From: Patient Hx Last Menstrual Period: 02/13/19 Onset of Pain: Hours Onset/Duration: Hours Severity Initially: Severe Severity Currently: Severe Pain Intensity: 9 Pain Scale Used: 0-10 Numeric Timing: Constant Location: Is Discrete @ - left ankle pain Character Of Pain: Aching Associated Signs And Symptoms: Negative: Swelling, Redness, Bruising Aggravating Factor(s): Standing, Ambulation Alleviating Factor(s): Rest Able to Bear Weight: No - Risk Factors Gout Risk Factors: Negative DVT Risk Factors: Negative Septic Arthritis Risk Factor: Negative - Allergies/Home Medications Allergies/Adverse Reactions: Allergies Allergy/AdvReac Type Severity Reaction Status Date / Time hydrocodone [From Vicodin] Allergy Hives/Diff. Verified 03/31/19 22:07 Breathing/I tching ibuprofen Allergy Swelling Verified 03/31/19 22:07 Of Face,Lips,& Throat Penicillins Allergy Swelling Verified 03/31/19 22:07 Of Face,Lips,& Throat Home Medications: Home Medications NK [No Home Medications Reported] 04/27/19 [History Confirmed 04/27/19] PMH/Surg Hx/FS Hx/Imm Hx Previously Healthy: Yes Endocrine/Hematology History: Denies: Hx Anticoagulant Therapy, Hx Diabetes, Hx Thyroid Disease Cardiovascular History: Denies: Hx Congestive Heart Failure, Hx Deep Vein Thrombosis, Hx Hypertension , Hx Myocardial Infarction, Hx Pacemaker/ICD, Hx Peripheral Vascular Disease Respiratory History: Reports: Hx Asthma, Hx Chronic Bronchitis Denies: Hx Chronic Obstructive Pulmonary Disease (COPD), Hx Lung Cancer, Hx Pneumonia, Hx Pulmonary Embolism GI History: Reports: Other GI Disorders - hx bladder infection Denies: Hx Gall Bladder Disease, Hx Gastrointestinal Bleed, Hx Ulcer, Hx Urosepsis History: Reports: Hx Kidney Infection, Hx Kidney Stones, Hx Renal Disease - Her last kidney/bladder infection was about a year ago., Other Problems/ Disorders - UNABLE TO VOID TODAY Musculoskeletal History: Denies: Hx Arthritis, Hx Rheumatoid Arthritis, Hx Osteoporosis Sensory History: Denies: Hx Cataracts, Hx Contacts or Glasses, Hx Glaucoma, Hx Hearing Aid Opthamlomology History: Denies: Hx Cataracts, Hx Contacts or Glasses, Hx Glaucoma Neurological History: Reports: Hx Migraine Denies: Hx Dementia, Hx Headaches, Hx Seizures, Hx Transient Ischemic Attacks (TIA) Psychiatric History: Reports: Hx Anxiety, Hx Depression, Hx Post Traumatic Stress Disorder, Hx Bipolar Disorder - She takes depakote for this., Other Psychiatric Issues/Disorders - bipolar Denies: Hx Panic Disorder, Hx Schizophrenia - Cancer History Hx Chemotherapy: No Hx Radiation Therapy: No - Surgical History Surgery Procedure, Year, and Place: Tonsillectomy adenoidectomy. C section X4, Tubal Ligation 04/19/15 - Immunization History Date of Tetanus Vaccine: Unknown Date of Influenza Vaccine: >2 years ago Hx Pertussis Vaccination: No Immunizations Up to Date: Yes Infectious Disease History: No Infectious Disease History: Reports: Hx of Known/Suspected MRSA - ? hx of leg wound Denies: Hx Clostridium Difficile, Hx Hepatitis, Hx Human Immunodeficiency Virus (HIV), Hx Shingles, Hx Tuberculosis, Hx Known/Suspected VRE, Hx Known/ Suspected VRSA, History Other Infectious Disease, Traveled Outside the [place] in Last 30 Days - Family History Known Family History: Positive: Cardiac Disease - mother had minor ND at 46 y/o , father with ND, Hypertension, Diabetes, Respiratory Disease - Chronic bronchitis, Other - migraines mom had brain CA, depression, anxiety, mom has LUPUS - Social History Alcohol Use: Occasionally Hx Substance Use: Yes Substance Use Type: Reports: Marijuana Substance Use Comment - Amount & Last Used: occasionally Hx Tobacco Use: Yes Smoking Status (MU): Light Every Day Tobacco Smoker Type: Cigarettes Amount Used/How Often: 5-7 CIG/DAY Length of Time of Smoking/Using Tobacco: 17 years Have You Smoked in the Last Year: Yes Review of Systems Negative: Fever, Chills, Fatigue, Skin Diaphoresis Negative: Palpitations, Chest Pain Negative: Shortness Of Breath, Cough Genitourinary: Negative Positive: no symptoms reported, see HPI Positive: Arthralgia - left ankle Negative: Rash, Bruising Neurological/Mental Status: Negative All Other Systems Reviewed And Are Negative: Yes Physical Exam Triage Information Reviewed: Yes Vital Signs On Initial Exam: Initial Vitals Temp Pulse Resp BP Pulse Ox 97.5 F 83 18 115/78 98 04/27/19 15:43 04/27/19 15:43 04/27/19 15:43 04/27/19 15:43 04/27/19 15:43 Vital Signs Reviewed: Yes Appearance: Positive: Well-Appearing, Well-Nourished Skin: Positive: Warm, Skin Color Reflects Adequate Perfusion Head/Face: Positive: Normal Head/Face Inspection Eyes: Positive: EOMI, CODY, Conjunctiva Clear Neck: Positive: Supple, No Lymphadenopathy Respiratory/Lung Sounds: Positive: Clear to Auscultation, Breath Sounds Present Cardiovascular: Positive: RRR, Pulses are Symmetrical in both Upper and Lower Extremities Musculoskeletal: Positive: Pain @ - left ankle pain and left foot pain Neurological: Positive: Sensory/Motor Intact, Alert, Oriented to Person Place, Time, Speech Normal Psychiatric: Positive: Patient Uncooperative for Exam Procedures - Sedation Patient Received Moderate/Deep Sedation with Procedure: No Diagnostics - Vital Signs Vital Signs Temp Pulse Resp BP Pulse Ox 04/27/19 15:43 97.5 F 83 18 115/78 98 - Laboratory Lab Statement: Any lab studies that have been ordered have been reviewed, and results considered in the medical decision making process. Lower Extremity Course/Dx - Course Course Of Treatment: This patient is evaluated for left-sided ankle pain. Patient had a ankle x-ray obtained which shows soft tissue swelling. No acute osseous injury. If symptoms persist, recommend repeat imaging. On physical examination, patient is having pain to the lateral portion of the ankle, unable to perform a physical exam. Pt unwilling to allow me to perform any physical exam d/t pain. She states she is also having pain to the foot and is angry that we did not obtain foot xray. This was offered to the patient multiple times, however pt declined. States she wants to go to a different hospital and obtain xrays. Offered crutches and gel splint. - Diagnoses Differential Diagnosis/HQI/PQRI: Positive: Other - left pain Provider Diagnoses: Left ankle pain Discharge ED - Sign-Out/Discharge Documenting (check all that apply): Patient Departure - Discharge Plan Condition: Stable Disposition: HOME Patient Education Materials: Ankle Sprain (ED) Referrals: No Primary Care Phys,NOPCP [Primary Care Provider] - Additional Instructions: Offered to perform a foot xray, however you declined - Billing Disposition and Condition Condition: STABLE Disposition: Home - Attestation Statements Provider Attestation: I was available for consult. This patient was seen by the SEG[facility]. The patient was not presented to, seen by, or examined by me. Deshaun Dill MD Addendum entered and electronically signed by Mariola Norris PA 05/05/19 07:05 : ED Addendum Addendum: NK [No Home Medications Reported] 04/27/19 [History Confirmed 04/27/19]
[2019-04-27 17:47] VITALS: BP 115/75
== END 2019-04-27 17:46 | disposition home or self-care (01) ==
LOC: ED 15:42
DX: M25.572 Pain in left ankle and joints of left foot (principal); X50.9XXA Other and unspecified overexertion or strenuous movements or postures, initial encounter; Y92.410 Unspecified street and highway as the place of occurrence of the external cause; J45.909 Unspecified asthma, uncomplicated; F41.9 Anxiety disorder, unspecified; F43.10 Post-traumatic stress disorder, unspecified; F31.9 Bipolar disorder, unspecified; F17.210 Nicotine dependence, cigarettes, uncomplicated; Z87.442 Personal history of urinary calculi; Z90.89 Acquired absence of other organs; Z98.51 Tubal ligation status; Z79.899 Other long term (current) drug therapy; Z88.0 Allergy status to penicillin; Z88.5 Allergy status to narcotic agent; Z88.8 Allergy status to other drugs, medicaments and biological substances
CPT/HCPCS: 99282

== ENCOUNTER 2019-05-09 09:12 | Emergency (ER) | payer OTHER ==
[2019-05-09 09:37] VITALS: BP 133/87
--- NOTE | 2019-05-09 10:55 | UC ---
Respiratory Complaint HPI - HPI Summary HPI Summary: 29-year-old woman comes in with a chief complaint of bronchitis symptoms. Patient diagnosed with influenza 4 days ago. She's been having cough chest congestion wheezing that's been getting worse last couple of days. She's been trying yowb-abh-nognjat medicines which are not helping. In the past she has an albuterol inhaler but she does not have an albuterol inhaler at this time. - History of Current Complaint Chief Complaint: UCGeneralIllness Stated Complaint: COUGH Time Seen by Provider: 05/09/19 10:39 Hx Last Menstrual Period: 05/01/19 Pain Intensity: 9 - Allergies/Home Medications Allergies/Adverse Reactions: Allergies Allergy/AdvReac Type Severity Reaction Status Date / Time hydrocodone [From Vicodin] Allergy Hives/Diff. Verified 05/09/19 09:38 Breathing/I tching ibuprofen Allergy Swelling Verified 05/09/19 09:38 Of Face,Lips,& Throat Penicillins Allergy Swelling Verified 05/09/19 09:38 Of Face,Lips,& Throat Home Medications: Home Medications Albuterol HFA INHALER* [Ventolin HFA Inhaler*] 2 puff INH Q4H PRN #1 mdi [Rx] DOXYcycline CAP(*) [DOXYcycline 100MG CAP(*)] 100 mg PO BID #20 cap 05/09/19 [Rx ] PMH/Surg Hx/FS Hx/Imm Hx Previously Healthy: Yes Respiratory History: Asthma Other History Of: Negative For: HIV, Hepatitis B, Hepatitis C, Anticoagulant Therapy - Surgical History Surgical History: Yes Surgery Procedure, Year, and Place: Tonsillectomy adenoidectomy. C section X4, Tubal Ligation 04/19/15 - Family History Known Family History: Positive: Cardiac Disease - mother had minor MO at 46 y/o , father with MO, Hypertension, Diabetes, Respiratory Disease - Chronic bronchitis, Other - migraines mom had brain CA, depression, anxiety, mom has LUPUS - Social History Alcohol Use: Occasionally Substance Use Type: Marijuana Substance Use Comment - Amount & Last Used: occasionally Smoking Status (MU): Light Every Day Tobacco Smoker Type: Cigarettes Amount Used/How Often: 5-7 CIG/DAY Length of Time of Smoking/Using Tobacco: 17 years Have You Smoked in the Last Year: Yes Household Exposure Type: Cigarettes - Immunization History Most Recent Influenza Vaccination: declined for this year Most Recent Tetanus Shot: UTD Most Recent Pneumonia Vaccination: none Review of Systems All Other Systems Reviewed And Are Negative: Yes Constitutional: Positive: Other - SEE HPI Skin: Positive: Negative Eyes: Positive: Negative ENT: Positive: Ear Ache, Nasal Discharge, Sinus Congestion Respiratory: Positive: Cough, Other - SEE HPI Cardiovascular: Positive: Negative Gastrointestinal: Positive: Negative Motor: Positive: Negative Neurovascular: Positive: Negative Musculoskeletal: Positive: Negative Neurological/Mental Status: Positive: Negative Psychological: Positive: Negative Is Patient Immunocompromised?: No Physical Exam Triage Information Reviewed: Yes Appearance: No Pain Distress, Well-Nourished, Ill-Appearing - MILD Vital Signs: Initial Vital Signs Temp 98.3 F 05/09/19 09:35 Pulse 96 05/09/19 09:35 Resp 16 05/09/19 09:35 BP 133/87 05/09/19 09:35 Pulse Ox 100 05/09/19 09:35 Vital Signs Reviewed: Yes Eye Exam: Normal Eyes: Positive: Conjunctiva Clear ENT: Positive: Pharyngeal erythema, Nasal congestion, Nasal drainage, TMs normal Neck: Positive: Supple Respiratory: Positive: No respiratory distress, Rhonchi Cardiovascular: Positive: RRR Musculoskeletal: Positive: Strength Intact, ROM Intact Neurological: Positive: Alert, Muscle Tone Normal Psychological: Positive: Age Appropriate Behavior Skin Exam: Normal Respiratory Course/Dx - Course Course Of Treatment: DISCUSSED VIRAL VERSES BACTERIAL INFECTIONS AND THE ROLE OF ANTIBIOTICS. PATIENT PREFERS TO BE ON ANTIBIOTICS AT THIS TIME. - Differential Dx/Diagnosis Provider Diagnosis: Bronchitis with bronchospasm Discharge ED - Sign-Out/Discharge Documenting (check all that apply): Patient Departure All imaging exams completed and their final reports reviewed: No Studies - Discharge Plan Condition: Stable Disposition: HOME Prescriptions: Albuterol HFA INHALER* [Ventolin HFA Inhaler*] 2 puff INH Q4H PRN #1 mdi PRN Reason: Wheezing DOXYcycline CAP(*) [DOXYcycline 100MG CAP(*)] 100 mg PO BID #20 cap Patient Education Materials: Acute Bronchitis (ED), Bronchospasm (ED) Referrals: [facility] [Outside] Additional Instructions: FOLLOW UP WITH YOUR DOCTOR IF NOT COMPLETELY IMPROVED. GET REEVALUATED SOONER IF NOT IMPROVED OR WORSE OR ANY QUESTIONS OR CONCERNS. - Billing Disposition and Condition Condition: STABLE Disposition: Home
== END 2019-05-09 11:00 | disposition home or self-care (01) ==
LOC: UCEAST 09:12
DX: J45.909 Unspecified asthma, uncomplicated (principal); F17.210 Nicotine dependence, cigarettes, uncomplicated; Z88.5 Allergy status to narcotic agent; Z88.6 Allergy status to analgesic agent; Z88.0 Allergy status to penicillin
CPT/HCPCS: 99212; G0463